=== PATIENT | female | born 1980 | race African-American/Black ===

== ENCOUNTER 2018-05-17 07:05 | Emergency (ER) | payer MEDICARE, MEDICAID ==
[~2018-05-17] VITALS: Ht 160 cm; Wt 65.6 kg
[~2018-05-17 07:05] MED LIST: ACET-2119 PO; HYDR-3965 PO; OMEP-84 PO; RANI300T7 PO; TRAM50TA2 PO
[2018-05-17 07:09] VITALS: BP 144/96
--- NOTE | 2018-05-17 07:22 | NUR ---
called pt. to room. pt. said " you'll have to wait a minute while i get my stuff together" i waited while pt. played with some papers, folding them up, dropping other items on the floor. pt. left in the waiting room so she could organize her belongings.
--- NOTE | 2018-05-17 07:25 | NUR ---
PT. STATES SHE NEEDS A PAIR OF SOCKS.
--- NOTE | 2018-05-17 07:29 | NUR ---
PT. HAS ON A BLACK PAIR OF HIGH TOP SNEEKERS THAT ARE IN GOOD SHAPE TEMP OUT SIDE IS 49 DEGREES. SUN RISE IS NOW AND IT IS TO BE BERYL FOR THE DAY ACORDING TO THE WEATHER CHANNEL
--- NOTE | 2018-05-17 08:12 | NUR ---
PT. LET HERSELF OUT OF TRIAGED 2 BACK INTO THE LOBBY. TRIAGE NURSE TRIED TO GET HER BACK INTO TRIAGE 2 BUT SHE WAS PLAYING WITH HER BELONGINGS. PT WAS GIVEN A BAG TO PLACE HER THINGS INTO....
--- NOTE | 2018-05-17 08:13 | NUR ---
CALLED PT. NOT IN THE LOBBY
--- NOTE | 2018-05-17 08:34 | NUR ---
PT. IS NOW BACK IN T2
--- NOTE | 2018-05-17 09:00 | NUR ---
PT WAS SEEN AND ASSESSED BY SARITA ROBERTSON. PT WAS DC'D BEFORE RN ABLE TO COMPLETE ASSESSMENTS.
== END 2018-05-17 09:02 | disposition home or self-care (01) ==
LOC: ER 07:05
DX: F28 Other psychotic disorder not due to a substance or known physiological condition (principal); M79.661 Pain in right lower leg; K21.9 Gastro-esophageal reflux disease without esophagitis; G89.29 Other chronic pain; F15.90 Other stimulant use, unspecified, uncomplicated; Z79.899 Other long term (current) drug therapy
CPT/HCPCS: 99284

== ENCOUNTER 2019-12-25 04:14 | Emergency (ER) | payer MEDICAID, MEDICARE, OTHER ==
[~2019-12-25] VITALS: Ht 160 cm; Wt 70.9 kg
[2019-12-25 04:23] VITALS: BP 158/12
[2019-12-25] MEDS ORDERED: ketorolac tromethamine 15mg/ml inj. IM ONE (04:40)
[2019-12-25] MEDS ORDERED: IBUP-1984 PO (04:41)
== END 2019-12-25 05:33 | disposition home or self-care (01) ==
LOC: ER 04:14
DX: R07.81 Pleurodynia (principal); M25.531 Pain in right wrist; D57.1 Sickle-cell disease without crisis; G89.29 Other chronic pain; M54.5 Low back pain; F29 Unspecified psychosis not due to a substance or known physiological condition; F41.9 Anxiety disorder, unspecified; K21.9 Gastro-esophageal reflux disease without esophagitis; F15.10 Other stimulant abuse, uncomplicated; Z79.899 Other long term (current) drug therapy; W18.39XA Other fall on same level, initial encounter; Y93.89 Activity, other specified; Y92.89 Other specified places as the place of occurrence of the external cause; Y99.8 Other external cause status
CPT/HCPCS: 29125; 71046; 73110; 73130; 96372; 99284; J1885; 99283

== ENCOUNTER → 2020-09-17 | Emergency (ER) | payer MEDICARE ==
[~2020-09-17] MED LIST changes: +LORazepam 1 MG tablet PO ONE; +acetaminophen 325mg tablet PO ONE
[2020-09-17 16:21] VITALS: BP 157/89
--- NOTE | 2020-09-17 16:25 | NUR ---
Pt was triaged, assessed, treated, and discharged by provider prior to booking manager, assessment, treatment and discharge.
== END ==
LOC: ER 15:32
DX: T67.9XXA Effect of heat and light, unspecified, initial encounter (principal); F15.10 Other stimulant abuse, uncomplicated; I10 Essential (primary) hypertension; K21.9 Gastro-esophageal reflux disease without esophagitis; D57.1 Sickle-cell disease without crisis; G89.29 Other chronic pain; Z72.89 Other problems related to lifestyle; Z79.899 Other long term (current) drug therapy; X58.XXXA Exposure to other specified factors, initial encounter
CPT/HCPCS: 99283

== ENCOUNTER 2020-09-24 05:04 | Emergency (ER) | payer MEDICARE ==
[~2020-09-24] VITALS: Ht 157.5 cm; Wt 69.1 kg
[~2020-09-24 05:04] MED LIST changes: -LORazepam 1 MG tablet PO ONE; -acetaminophen 325mg tablet PO ONE
[2020-09-24 05:12] VITALS: BP 123/91
== END 2020-09-24 06:51 | disposition left against medical advice (07) ==
LOC: ER 05:05
DX: R10.9 Unspecified abdominal pain (principal); Z53.21 Procedure and treatment not carried out due to patient leaving prior to being seen by health care provider

== ENCOUNTER 2020-11-01 23:10 | Emergency (ER) | payer SELFPAY ==
[~2020-11-01] VITALS: Ht 157.5 cm; Wt 64.5 kg
[2020-11-02] MEDS ORDERED: acetaminophen 325mg tablet PO ONE (00:15)
--- NOTE | 2020-11-02 00:30 | NUR ---
PT presents in NAD ambulatory to the room; pt VSS; pt is very figity and wanting something to "let her sleep tonight". Pt states she has chronic leg/back pain. Pt pointed to left leg when asked where the pain was and then corrected to the right leg. States "I'm really not sure where the pain is but it's there". Pt was found 15 min later playing in the toilet of the bathroom and escorted by security back to room. Pt able to perform active ROM with all four extremeties and bend and raise very well without any c/o pain. Pt plan is to f/u with PCP.
[2020-11-02] MEDS ORDERED: ketorolac trometh. 30mg/ml inj. IM ONE (00:35)
[2020-11-02 00:59] VITALS: BP 141/69
== END 2020-11-02 01:00 | disposition home or self-care (01) ==
LOC: ER 23:10
DX: M54.89 Other dorsalgia (principal); G89.29 Other chronic pain; R10.84 Generalized abdominal pain; R11.0 Nausea; K21.9 Gastro-esophageal reflux disease without esophagitis; F15.90 Other stimulant use, unspecified, uncomplicated; Z86.2 Personal history of diseases of the blood and blood-forming organs and certain disorders involving the immune mechanism; Z72.89 Other problems related to lifestyle; Z79.899 Other long term (current) drug therapy
CPT/HCPCS: 96372; 99283; J1885

== ENCOUNTER 2020-11-04 04:42 | Emergency (ER) | payer MEDICARE ==
[~2020-11-04] VITALS: Ht 157.5 cm; Wt 64.5 kg
[2020-11-04 06:53] VITALS: BP 136/70
--- NOTE | 2020-11-04 07:23 | NUR ---
PT TO BR FOR UA, PT STATES UNABLE TO VOID.
[2020-11-04 11:34] LABS: BASOPHILS # (AUTO) 0.1 X10'3 (0-0.2); EOSINOPHILS # (AUTO) 0.1 X10'3 (0-0.9); MONOCYTES # (AUTO) 0.7 X10'3 (0-0.9)
[2020-11-04 11:36] LABS: BASOPHILS % (AUTO) 1.1 % (0-1); EOSINOPHILS % (AUTO) 1.9 % (0-6); HEMATOCRIT 24.3 % (35.0-45.0); LYMPHOCYTES # (AUTO) 2.1 X10'3 (1.1-4.8); LYMPHOCYTES % (AUTO) 30.1 % (21-51); MEAN CORPUSCULAR HEMOGLOBIN 15.3 PG (27.0-31.0); MEAN CORPUSCULAR HGB CONC 27.8 g/dL (33.0-36.5); MEAN CORPUSCULAR VOLUME 54.9 FL (78-98); MEAN PLATELET VOLUME 8.7 FL (7.4-10.4); NEUTROPHILS % (AUTO) 56.9 % (42-75); PLATELET COUNT 149 X10'3 (140-440); RED BLOOD COUNT 4.43 X10'6 (4.20-5.60)
[2020-11-04 11:51] LABS: ALANINE AMINOTRANSFERASE 28 U/L (12-78); ALBUMIN 3.3 G/DL (3.4-5.0); ALBUMIN/GLOBULIN RATIO 0.9 (1.1-1.5); ALKALINE PHOSPHATASE 79 IU/L (46-116); ANION GAP 9 (8-16); ASPARTATE AMINO TRANSFERASE 25 U/L (10-37); BILIRUBIN,DIRECT 0.2 MG/DL (0-0.3); BILIRUBIN,TOTAL 0.5 MG/DL (0.1-1.0); BLOOD UREA NITROGEN 16 MG/DL (7-18); BUN/CREATININE RATIO 21.6 (6.6-38.0); CALCIUM 8.3 MG/DL (8.5-10.1); CHLORIDE 105 MMOL/L (99-107); CREATININE 0.74 MG/DL (0.40-0.90); GLUCOSE 74 MG/DL (70-104); LIPASE 105 U/L (73-393); POTASSIUM 3.9 MMOL/L (3.5-5.1); SODIUM 138 MMOL/L (135-145); TOTAL CARBON DIOXIDE 23.8 MMOL/L (24-32); eGFR > 90 ML/MIN
[2020-11-04 11:55] LABS: URINE HCG NEGATIVE (NEG)
--- NOTE | 2020-11-04 11:55 | NUR ---
IN TO SEE PT AND SHE WAS NOT IN ROOM. INFORMED BY ER REG THAT SECURITY FOUND PT WANDERING AROUND THE HOSPITAL. PT RETURNED TO HER ROOM WITH POPTARTS IN HER HAND, INQUIRED TO WHERE SHE HAD BEEN. SHE STATES SHE WENT ACROSS THE STREET TO THE [employer] TO GET SOME FOOD BECAUSE "I WAS HUNGERY AND YOU GUYS ARE TAKING TO LONG" INSTRUCTED PT WE ARE STILL WAITING FOR HER LABS AND UA TO RESULT. SHE AGREES TO WAIT FOR RESULTS AT THIS TIME
[2020-11-04 12:05] LABS: CLARITY,URINE CLOUDY (Clear); COLOR,URINE AMBER (Yellow); GLUCOSE, URINE NEGATIVE (Neg); NITRITES, URINE NEGATIVE (Neg); OCCULT BLOOD,URINE LARGE (Neg); PH,URINE 6.5 (4.8-8.0); PROTEIN,URINE TRACE mg/dl (Neg); UA COLLECTION TYPE CLN CATCH MIDSTREAM
[2020-11-04 12:06] LABS: LEUKOCYTE ESTERASE ,URINE NEGATIVE (Neg)
[2020-11-04 12:07] LABS: KETONES,URINE 15 mg/dl (Neg)
[2020-11-04 12:13] LABS: BACTERIA,URINE NONE SEEN /HPF (Neg); MUCUS STRANDS NONE SEEN /LPF (Neg); RBC,URINE TNTC /HPF (0-2); SQUAMOUS EPITHELIAL CELL,UR FEW /LPF (FEW); WBC,URINE 0-4 /HPF (0-4)
--- NOTE | 2020-11-04 12:15 | NUR ---
Patient walked out of room, down toward registration. I stopped patient and asked if she was leaving? Patient stated, "Yes, I feel better now. I need to go." I stated to patient that we were just waiting for her test results to come in and shouldn't be much longer. Patient states that she didn't want to wait. I stated that I would love to have the physician come and speak with her and she still refused stating that she wants to go. Dr. Carmen aware.
[2020-11-04 12:17] LABS: HEMOGLOBIN 6.8 g/dl (12.0-16.0)
[2020-11-04 12:18] LABS: ANISOCYTOSIS 3+; HYPOCHROMASIA 2+; LARGE PLATELETS FEW; MICROCYTOSIS 3+; PLATELET ESTIMATE DECREASED; POLYCHROMASIA 1+
[2020-11-04 12:19] LABS: POIKILOCYTOSIS FEW; TARGET CELLS FEW
[2020-11-23] MEDS ORDERED: FERR325T28 PO (20:58)
[2020-11-23] MEDS ORDERED: PANT40SU2 PO (20:58)
[2020-11-23] MEDS ORDERED: RISP3TAB63 PO (20:58)
[2020-11-23] MEDS ORDERED: VITC500T PO (20:58)
== END 2020-11-04 13:09 | disposition left against medical advice (07) ==
LOC: ER 04:43
DX: N92.0 Excessive and frequent menstruation with regular cycle (principal); D64.9 Anemia, unspecified; K21.9 Gastro-esophageal reflux disease without esophagitis; D57.1 Sickle-cell disease without crisis; G89.29 Other chronic pain; F15.90 Other stimulant use, unspecified, uncomplicated; Z72.89 Other problems related to lifestyle; Z79.899 Other long term (current) drug therapy
CPT/HCPCS: 36415; 80048; 80076; 81001; 81025; 83690; 85008; 85025; 99283

== ENCOUNTER → 2020-11-05 | Emergency (ER) | payer MEDICARE ==
[~2020-11-05] MED LIST changes: +NO HOME MEDS
== END | disposition left against medical advice (07) ==
LOC: ER 13:31
DX: Z53.21 Procedure and treatment not carried out due to patient leaving prior to being seen by health care provider (principal)

== ENCOUNTER 2020-11-08 18:45 | Emergency (ER) | payer SELFPAY ==
[~2020-11-08] VITALS: Ht 157.5 cm; Wt 61.4 kg
[~2020-11-08 18:45] MED LIST changes: -NO HOME MEDS
[2020-11-08 19:47] VITALS: BP 164/105
--- NOTE | 2020-11-08 21:23 | NUR ---
PATIENT WAS TREATED, ASSESSED, AND DC PER PROVIDER PRIOR TO AIRCRAFT DISPATCHER. DEPARTED AMBULATORY IN STABLE CONDITION.
== END 2020-11-08 21:23 | disposition home or self-care (01) ==
LOC: ER 18:45
DX: Z02.89 Encounter for other administrative examinations (principal); R10.84 Generalized abdominal pain; D64.9 Anemia, unspecified; K21.9 Gastro-esophageal reflux disease without esophagitis; G89.29 Other chronic pain; F32.9 Major depressive disorder, single episode, unspecified; F15.90 Other stimulant use, unspecified, uncomplicated; Z86.2 Personal history of diseases of the blood and blood-forming organs and certain disorders involving the immune mechanism; Z72.89 Other problems related to lifestyle; Z79.899 Other long term (current) drug therapy
CPT/HCPCS: 99281

== ENCOUNTER 2020-11-13 21:03 | Inpatient (IN) | payer MEDICARE, OTHER ==
[~2020-11-13] VITALS: Ht 157.5 cm; Wt 66.6 kg
[2020-11-13] MEDS ORDERED: LORazepam 1 MG tablet PO ONE (22:05)
[2020-11-13 22:52] LABS: BASOPHILS # (AUTO) 0.1 X10'3 (0-0.2); BASOPHILS % (AUTO) 0.6 % (0-1); EOSINOPHILS # (AUTO) 0.1 X10'3 (0-0.9); EOSINOPHILS % (AUTO) 0.4 % (0-6); HEMOGLOBIN 7.2 g/dl (12.0-16.0); LYMPHOCYTES # (AUTO) 2.1 X10'3 (1.1-4.8); LYMPHOCYTES % (AUTO) 15.5 % (21-51); MEAN CORPUSCULAR HEMOGLOBIN 14.3 PG (27.0-31.0); MEAN CORPUSCULAR HGB CONC 26.6 g/dL (33.0-36.5); MEAN CORPUSCULAR VOLUME 53.7 FL (78-98); MONOCYTES # (AUTO) 0.6 X10'3 (0-0.9); MONOCYTES % (AUTO) 4.2 % (2-12); NEUTROPHILS # (AUTO) 10.7 X10'3 (1.8-7.7); NEUTROPHILS % (AUTO) 79.3 % (42-75); PLATELET COUNT 537 X10'3 (140-440); RED BLOOD COUNT 5.03 X10'6 (4.20-5.60); RED CELL DISTRIBUTION WIDTH 24.1 % (11.5-14.5); WHITE BLOOD COUNT 13.4 X10'3 (4.5-11.0)
[2020-11-13 23:23] LABS: ALANINE AMINOTRANSFERASE 47 U/L (12-78); ALBUMIN 4.3 G/DL (3.4-5.0); ALBUMIN/GLOBULIN RATIO 0.9 (1.1-1.5); ALKALINE PHOSPHATASE 96 IU/L (46-116); ANION GAP 11 (8-16); ASPARTATE AMINO TRANSFERASE 59 U/L (10-37); BILIRUBIN,TOTAL 0.4 MG/DL (0.1-1.0); BLOOD UREA NITROGEN 12 MG/DL (7-18); BUN/CREATININE RATIO 12.5 (6.6-38.0); CALCIUM 9.5 MG/DL (8.5-10.1); CHLORIDE 103 MMOL/L (99-107); CREATININE 0.96 MG/DL (0.40-0.90); GLUCOSE 100 MG/DL (70-104); POTASSIUM 4.2 MMOL/L (3.5-5.1); SODIUM 136 MMOL/L (135-145); TOTAL CARBON DIOXIDE 21.9 MMOL/L (24-32); eGFR 77 ML/MIN
[2020-11-13 23:24] LABS: URINE HCG NEGATIVE (NEG)
[2020-11-13 23:32] LABS: ETHANOL < 0.010 GM/DL (0.0-0.010)
[2020-11-13 23:39] LABS: URINE AMPHETAMINE SCREEN POSITIVE (Neg); URINE BARBITUATE SCREEN NEGATIVE (Neg); URINE BENZODIAZEPINES SCREEN NEGATIVE (Neg); URINE CANNABINOID SCREEN NEGATIVE (Neg); URINE COCAINE SCREEN NEGATIVE (Neg); URINE METHADONE SCREEN NEGATIVE (Neg); URINE OPIATE SCREEN NEGATIVE (Neg); URINE PHENCYCLIDINE SCREEN NEGATIVE (Neg)
[2020-11-13 23:48] LABS: CLARITY,URINE CLEAR (Clear); COLOR,URINE Yellow (Yellow); GLUCOSE, URINE Negative (Neg); KETONES,URINE TRACE mg/dl (Neg); OCCULT BLOOD,URINE NEGATIVE (Neg); PROTEIN,URINE Negative (Neg); UA COLLECTION TYPE CLN CATCH MIDSTREAM
[2020-11-13 23:49] LABS: LEUKOCYTE ESTERASE ,URINE NEGATIVE (Neg); NITRITES, URINE NEGATIVE (Neg); UROBILINOGEN,URINE 0.2 E.U/dL (0.2-1.0)
[2020-11-14 01:13] LABS: LARGE PLATELETS FEW; PLATELET ESTIMATE INCREASED
[2020-11-14 01:15] LABS: ANISOCYTOSIS 3+; HYPOCHROMASIA 2+; MICROCYTOSIS 3+
[2020-11-14 01:16] LABS: POLYCHROMASIA 2+
[2020-11-14 01:17] LABS: POIKILOCYTOSIS 2+
[2020-11-14 01:18] LABS: TARGET CELLS FEW
[2020-11-14 01:19] LABS: TEAR DROP CELLS 1+
[2020-11-14] MEDS ORDERED: ibuprofen tablet 400 MG TABLET PO ONE (05:05)
--- NOTE | 2020-11-14 05:55 | NUR ---
FAXED CHART TO [facility]
[2020-11-14] MEDS ORDERED: NO HOME MEDS (06:09)
--- NOTE | 2020-11-14 06:52 | NUR ---
PT APPEARS TO BE SLEEPING. NO S/S ACUTE DISTRESS AT THIS TIME. RESPIRATIONS EQUAL AND UNLABORED
[2020-11-14] MEDS ORDERED: acetaminophen 325mg tablet PO ONE (08:25)
--- NOTE | 2020-11-14 08:27 | NUR ---
pt awake and requesting vicodin for her back pain. christiano white made aware of pt request. pt seen coloring on the floor. given paper to color on
--- NOTE | 2020-11-14 09:10 | NUR ---
meal tray given
--- NOTE | 2020-11-14 17:50 | NUR ---
RN received pt. to ER overflow. Pt. is stable. Belongings placed in locker and pt. given extra blanket and water.
--- NOTE | 2020-11-14 18:27 | NUR ---
Received report and assumed care of patient that is eating dinner.
--- NOTE | 2020-11-14 19:52 | NUR ---
Patient has finished dinner, and fallen asleep on her left side. Resp. equal and unlabored. No s/s of distress.
--- NOTE | 2020-11-14 21:51 | NUR ---
Patient appears to be sleeping. She is in supine position and her breathing is equal and unlabored.
--- NOTE | 2020-11-14 23:40 | NUR ---
Patient awake and has requested a snack, which was provided. She is resting comfortably.
--- NOTE | 2020-11-15 00:10 | NUR ---
Patient lying in bed awake, having a conversation with herself. No agitation.
--- NOTE | 2020-11-15 01:18 | NUR ---
PT AWAKE, AMBULATORY TO THE BATHROOM WITH STEADY GAIT, RETURNS TO HER BEDSIDE TABLE TALKING TO HERSELF BEFORE RETURNING TO THE BATHROOM. PT APPEARS TO BE IN NO DISTRESS.
--- NOTE | 2020-11-15 01:21 | NUR ---
PT BACK TO BED AFTER MULTIPLE RETURNS AND CHECKS OF THE DOOR HANDLE, REQUESTING JUICE AND CRACKERS. APPEARS COMFORTABLE.
--- NOTE | 2020-11-15 02:58 | NUR ---
Patient appears to be asleep in supine position. She occasionally mumbles something, but appears to be in no distress.
--- NOTE | 2020-11-15 05:38 | NUR ---
Patient asleep on her left side. RR equal and unlabored.
--- NOTE | 2020-11-15 06:32 | NUR ---
Received patient resting comfortably in low denis's position. Respirations unlabored.
--- NOTE | 2020-11-15 09:03 | NUR ---
Pt presnets as fatigued, occassionally wakes up wanting something to eat. Pt ate 100% of her breakfast. Pt had a difficult time staying awake during one on one assessment. Pt states she came to ER because "I didn't feel good." When asked about suicidal thoughts pt mumbled something then fell back to sleep. Pt denies being homeless states "I can live with my mom."
--- NOTE | 2020-11-15 11:04 | NUR ---
Pt resting comfortably on right side, respirations even and unlabored.
--- NOTE | 2020-11-15 13:07 | NUR ---
Pt sitting up eating her lunch. Pt remains calm, focused on getting needs met.
--- NOTE | 2020-11-15 14:55 | NUR ---
Pt appears to be sleeping comfortably, no apparent distress.
--- NOTE | 2020-11-15 17:42 | NUR ---
Pt continues to rest comfortably, self-positions. No apparent distress noted.
--- NOTE | 2020-11-15 19:12 | NUR ---
One to one with the patient. She was sitting up calmly eating her dinner. She denied thoughts of wanting to harm herself or others. She denies psychotic symptoms. When asked why she was here she stated, "I needed some time to myself. I wasn't feeling good" She stated that she has been living with her mother. Kobi stated that she is aware that she is on a 5150 hold. Anxiety or depression were not endorsed.
--- NOTE | 2020-11-15 21:30 | NUR ---
The patient ambulated to the bathroom with no pants on and seemed oblivious to this fact. She is not agitated. She is cooperative.
--- NOTE | 2020-11-16 00:05 | NUR ---
The patient appears to be sleeping
--- NOTE | 2020-11-16 01:04 | NUR ---
The patient appears to be sleeping
[2020-11-16] MEDS ORDERED: acetaminophen 325mg tablet PO ONE (02:20)
--- NOTE | 2020-11-16 02:25 | NUR ---
The patient is awake and asked for pain med. MD made aware and order received.
--- NOTE | 2020-11-16 03:25 | NUR ---
The patient appears to be sleeping
--- NOTE | 2020-11-16 05:00 | NUR ---
The patient appears to be sleeping
--- NOTE | 2020-11-16 06:52 | NUR ---
Patient sleeping on left side. No distress observed. Continue to monitor.
--- NOTE | 2020-11-16 08:15 | NUR ---
Patient eating breakfast. No distress observed. Continue to monitor.
--- NOTE | 2020-11-16 09:49 | NUR ---
Patient sleeping on left side. No distress observed. Continue to monitor.
--- NOTE | 2020-11-16 11:23 | NUR ---
Patient continues to sleep. No distress observed. Continue to monitor.
--- NOTE | 2020-11-16 13:15 | NUR ---
Patient is up and eating lunch. No distress observed. Continue to monitor.
[2020-11-16] MEDS ORDERED: magnesium hydroxide 30ml (MOM) UD suspension PO PRN (15:35)
[2020-11-16] MEDS ORDERED: loperamide 2mg capsule PO PRN (15:35)
[2020-11-16] MEDS ORDERED: acetaminophen 325mg tablet PO PRN ×2 (15:35)
[2020-11-16] MEDS ORDERED: mag hydrox/Alum hydrox/simeth 30ml oral suspension PO PRN (15:35)
--- NOTE | 2020-11-16 16:00 | NUR ---
Admission note: Pt admitted today at 1515 to [facility] on a 5150 for DTS/GD from our ER. PT believes people are out to kill her and her family, unable to develop viable safety plan, reports suicidal thoughts, presents confused disorganized. Pt has a history of multiple psychotic placements, most recent at [place] 08/30/20. Pt has a history of schizophrenia, Sickle cell anemia, back pain. Tox screen positive for amphetamines. Pt cooperative with admissnion process.
[2020-11-16 16:07] VITALS: BP 132/88
[2020-11-16 16:09] VITALS: BP 132/88
[2020-11-16 16:58] VITALS: BP 132/88
[2020-11-16 19:00] VITALS: BP 136/90
--- NOTE | 2020-11-17 00:33 | NUR ---
Nursing Progress Note: Legal hold: 5150 Client on involuntary status for GD/DTS. Report received from KEMI Garcia with use of SBAR Why are they here: Pt admitted today at 1515 to [place] for [facility] health on a 5150 for DTS/GD from our ER. PT believes people are out to kill her and her family, unable to develop viable safety plan, reports suicidal thoughts, presents confused disorganized. Pt has a history of multiple psychotic placements, most recent at [place] 08/30/20. Pt has a history of schizophrenia, Sickle cell anemia, back pain. Tox screen positive for amphetamines. Pt cooperative with admission process. Assessment What has happened this shift: Patient laying in bed awake at the beginning of shift. Pleasant and cooperative with care; PRN Ativan and Trazodone provided this shift. Patient denies SI, HI, A/VH but observed responding to IS. Patient is minimal with responses. Patient reported that she is looking forward to the doctor tomorrow. She participated in HS snack and quickly returned to her bed. Patient presents restless; post Ativan and Trazodone patient appears to be sleeping without difficulty. S/I, H/I: Denies A/VH: Responding to IS Sleep: Refer to sleep assessment ADL's: Needs encouragement Group attendance: NA Were meds taken: No scheduled meds; compliant with PRNs Any med S/E: None observed or reported Mental Status Exam Appearance: Disheveled; wearing green unit attire Eye contact: Good Behavior: Pleasant and cooperative; isolative Speech: Clear, audible, minimal Mood: Anxious Affect: Congruent to mood Thought process: Poverty of thought; possible thought blocking Thought Content: Meeting needs and getting to meet the doctor Cognition: Intact Insight: Poor Judgment: Poor Interventions PRN's used: Ativan and Trazodone Therapeutic interventions: Maintained a safe and supportive environment, ensured contract for safety, provided clear and simple instructions, provided active listening and positive encouragement, encouraged independent performance of ADLs and provided assistance as needed, encouraged participation on the unit, monitored BP and encouraged fluids, and maintained Q 15 min safety checks. Restraints/seclusion/emergency medication: NA Justification of Continued Inpatient Treatment: Patient requires a safe and therapeutic environment to interrupt current crisis.
[2020-11-17 08:00] VITALS: BP 117/76
[2020-11-17 14:11] LABS: CHOL/HDL RATIO 2.9 (0.00-4.99); CHOLESTEROL 93 MG/DL (0-200); HDL CHOLESTEROL 32 MG/DL (35-60); LDL CHOLESTEROL 51 MG/DL (50-100); TRIGLYCERIDES 52 MG/DL (20-135)
[2020-11-17 14:18] LABS: HEMOGLOBIN A1C 5.1 % (4.5-6.2)
--- NOTE | 2020-11-17 15:30 | NUR ---
Nursing Progress Note: Legal hold: 5150 Client on involuntary status for GD/DTS. Report received from KEMI Garcia with use of SBAR Why are they here: Pt admitted today at 1515 to [place] for [facility] health on a 5150 for DTS/GD from our ER. PT believes people are out to kill her and her family, unable to develop viable safety plan, reports suicidal thoughts, presents confused disorganized. Pt has a history of multiple psychotic placements, most recent at [place] 08/30/20. Pt has a history of schizophrenia, Sickle cell anemia, back pain. Tox screen positive for amphetamines. Pt cooperative with admission process. Assessment What has happened this shift: Patient was asleep at change of shift and up for meals. Patient isolates. RN did a 1:1 in patient's room. Patient states she is still feeling a "little" suicidal without a plan. Patient states she has a lot to deal with and felt overwhelmed but did not give details. Patient states she lives with her mom. Patient denies audio/visual hallucinations and states she never has heard voices. S/I, H/I: Yes to SI, No to HI A/VH: denies Sleep: Slept or in bed most of the day ADL's: Needs encouragement Group attendance: No Were meds taken: No scheduled medications Any med S/E: None observed or reported Mental Status Exam Appearance: Disheveled; wearing green unit attire Eye contact: Fair Behavior: Cooperative and Isolates in bed Speech: Normal Mood: Depressed Affect: Depressed Thought process: Linear Thought Content: Getting her needs met, food and sleep Cognition: OX4 Insight: Poor Judgment: Poor Interventions PRN's used: None Therapeutic interventions: Maintained a safe and supportive environment, ensured contract for safety, provided clear and simple instructions, provided active listening and positive encouragement, encouraged independent performance of ADLs and provided assistance as needed, encouraged participation on the unit, monitored BP and encouraged fluids, and maintained Q 15 min safety checks. Restraints/seclusion/emergency medication: NA Justification of Continued Inpatient Treatment: Patient requires a safe and therapeutic environment to interrupt current crisis.
[2020-11-17] MEDS ORDERED: benztropine 1mg tablet PO PRN (17:55)
[2020-11-17 19:00] VITALS: BP 115/72
[2020-11-17] MEDS: risperiDONE 0.5mg tablet PO SCH (20:50)
[2020-11-17] MEDS: LORazepam 1 MG tablet PO PRN (20:50)
[2020-11-17] MEDS: traZODone 50mg tablet PO PRN (20:50)
--- NOTE | 2020-11-18 02:06 | NUR ---
Nursing Progress Note: Legal hold: 5150 Client on involuntary status for GD/DTS. Report received from KEMI Salinas with use of SBAR Why are they here: Pt admitted today at 1515 to [place] for [facility] health on a 5150 for DTS/GD from our ER. PT believes people are out to kill her and her family, unable to develop viable safety plan, reports suicidal thoughts, presents confused disorganized. Pt has a history of multiple psychotic placements, most recent at [place] 08/30/20. Pt has a history of schizophrenia, Sickle cell anemia, back pain. Tox screen positive for amphetamines. Pt cooperative with admission process. Assessment What has happened this shift: Patient in the community room at the beginning of shift. Pleasant and cooperative with care; compliant with medication. PRN Ativan and Trazodone provided with positive effect. Patient denies SI, HI, VH; observed responding to IS. Patient presents impatient behaviors when she feels her needs are not being met quick enough. Patient participated in HS snack prior to bed; observed sleeping and does not appear to be having difficulty. S/I, H/I: Denies A/VH: Responding to IS Sleep: Refer to sleep assessment ADL's: Needs encouragement Group attendance: NA Were meds taken: Yes Any med S/E: None observed or reported Mental Status Exam Appearance: Disheveled; wearing green unit attire Eye contact: Good Behavior: Pleasant and cooperative, isolative, impatient Speech: Clear, audible, minimal Mood: Anxious Affect: Congruent to mood Thought process: Poverty of thought; possible thought blocking Thought Content: Meeting needs Cognition: Intact Insight: Poor Judgment: Poor Interventions PRN's used: Ativan and Trazodone Therapeutic interventions: Maintained a safe and supportive environment, ensured contract for safety, provided clear and simple instructions, provided active listening and positive encouragement, encouraged independent performance of ADLs and provided assistance as needed, encouraged participation on the unit, monitored BP and encouraged fluids, and maintained Q 15 min safety checks. Restraints/seclusion/emergency medication: NA Justification of Continued Inpatient Treatment: Patient requires a safe and therapeutic environment to interrupt current crisis.
[2020-11-18 08:00] VITALS: BP 115/70
[2020-11-18] MEDS: ascorbic acid 500mg tablet PO SCH ×2 (08:09→17:36)
[2020-11-18] MEDS: pantoprazole 40mg Tablet.DR PO SCH (08:09)
[2020-11-18] MEDS: risperiDONE 0.5mg tablet PO SCH ×2 (08:10→20:16)
[2020-11-18] MEDS: ferrous sulfate 325mg tablet PO SCH ×3 (09:19→17:36)
[2020-11-18 12:31] LABS: BASOPHILS % (AUTO) 0.2 % (0-1); EOSINOPHILS # (AUTO) 0.2 X10'3 (0-0.9); EOSINOPHILS % (AUTO) 1.5 % (0-6); HEMATOCRIT 24.4 % (35.0-45.0); LYMPHOCYTES # (AUTO) 1.9 X10'3 (1.1-4.8); MEAN CORPUSCULAR HEMOGLOBIN 13.8 PG (27.0-31.0); MEAN CORPUSCULAR HGB CONC 26.3 g/dL (33.0-36.5); MEAN CORPUSCULAR VOLUME 52.4 FL (78-98); MONOCYTES # (AUTO) 0.7 X10'3 (0-0.9); MONOCYTES % (AUTO) 5.9 % (2-12); NEUTROPHILS # (AUTO) 9.2 X10'3 (1.8-7.7); NEUTROPHILS % (AUTO) 76.4 % (42-75); PLATELET COUNT 514 X10'3 (140-440); RED BLOOD COUNT 4.66 X10'6 (4.20-5.60); RED CELL DISTRIBUTION WIDTH 23.4 % (11.5-14.5)
[2020-11-18 12:34] LABS: HEMOGLOBIN 6.4 g/dl (12.0-16.0)
[2020-11-18 12:58] LABS: % IRON SATURATION 98 % (11-46); IRON 323 UG/DL (49-151); TOTAL IRON BINDING CAPACITY 328 UG/DL (259-388)
--- NOTE | 2020-11-18 13:00 | NUR ---
Hgb: 6.4 Hct: 24.4 BP 115/70 HR 88 asymptomatic SARITA notified, notified. Dr. Dailey ordered stat stool occult blood. Hat placed in toilet and pt educated to use bathroom CATE and notify staff.
[2020-11-18 13:07] LABS: ALANINE AMINOTRANSFERASE 21 U/L (12-78); ALBUMIN 2.8 G/DL (3.4-5.0); ALBUMIN/GLOBULIN RATIO 0.7 (1.1-1.5); ALKALINE PHOSPHATASE 63 IU/L (46-116); ANION GAP 10 (8-16); ASPARTATE AMINO TRANSFERASE 15 U/L (10-37); BILIRUBIN,TOTAL 0.2 MG/DL (0.1-1.0); BLOOD UREA NITROGEN 14 MG/DL (7-18); BUN/CREATININE RATIO 17.5 (6.6-38.0); CALCIUM 8.4 MG/DL (8.5-10.1); CHLORIDE 104 MMOL/L (99-107); FERRITIN 1 NG/ML (8-252); GLUCOSE 104 MG/DL (70-104); POTASSIUM 4.7 MMOL/L (3.5-5.1); SODIUM 139 MMOL/L (135-145); TOTAL PROTEIN 6.6 G/DL (6.4-8.2); eGFR > 90 ML/MIN
[2020-11-18 13:32] LABS: PLATELET ESTIMATE INCREASED
[2020-11-18 13:33] LABS: ANISOCYTOSIS 3+; HYPOCHROMASIA 3+; MICROCYTOSIS 3+; POLYCHROMASIA 2+; TEAR DROP CELLS 1+
[2020-11-18 13:34] LABS: SCHISTOCYTES 1+; STOMATOCYTES 1+
[2020-11-18 16:57] LABS: OCCULT BLOOD STOOL NEGATIVE (Neg)
--- NOTE | 2020-11-18 17:54 | NUR ---
Nursing Progress Note: Legal hold: 5150 Client on involuntary status for GD/DTS. Report received from RN with use of SBAR Why are they here: Pt admitted today at 1515 to [facility] on a 5150 for DTS/GD from our ER. PT believes people are out to kill her and her family, unable to develop viable safety plan, reports suicidal thoughts, presents confused disorganized. Pt has a history of multiple psychotic placements, most recent at [place] 08/30/20. Pt has a history of schizophrenia, Sickle cell anemia, back pain. Tox screen positive for amphetamines. Pt cooperative with admission process. Assessment What has happened this shift: Received Pt in bed sleeping at the beginning of the shift. Pt woke and was cooperative with vitals and AM medications. Pt ate breakfast and lunch in community room with others. Pt guarded in AM and isolated to room and slept on/off. Pt had abnormal labs; Hgb-6.4, Hct-24.4. MD notified and stool occult blood ordered and obtained and sent to lab. Pt denies being on period/menses or seeing blood in her stool. Pt is asymptomatic and MD recommends no further action at this time. Pt approached this RN in afternoon stating I can hear them dropping bombs, coming and taking stuff. They need to leave me alone. Pt spoke in disorganized manner and persistently spoke of delusions related to them, but could not provide this RN with coherent explanations of what she reports hearing or seeing. Pt remains calm and cooperative at this time. Pt denies that these things are not real. S/I, H/I: Denies HI; endorses SI A/VH: Denies Sleep: Slept or in bed most of the day ADL's: Needs encouragement Group attendance: No Were meds taken: Yes Any med S/E: None observed or reported Mental Status Exam Appearance: Disheveled; wearing green scrubs Eye contact: Fair Behavior: Cooperative and Isolates in bed Speech: Disorganized, delusional Mood: Depressed Affect: Anxious Thought process: Disorganized Thought Content: Getting her needs met, food and sleep Cognition: A/OX3 Insight: Poor Judgment: Poor Interventions PRN's used: None Therapeutic interventions: Maintained a safe and supportive environment, ensured contract for safety, provided clear and simple instructions, provided active listening and positive encouragement, encouraged independent performance of ADLs and provided assistance as needed, encouraged participation on the unit, monitored BP and encouraged fluids, and maintained Q 15 min safety checks. Restraints/seclusion/emergency medication: NA Justification of Continued Inpatient Treatment: Patient requires a safe and therapeutic environment to interrupt current crisis.
[2020-11-18 19:00] VITALS: BP 124/66
[2020-11-18] MEDS: traZODone 50mg tablet PO PRN (20:16)
[2020-11-18] MEDS: LORazepam 1 MG tablet PO PRN (20:17)
--- NOTE | 2020-11-18 23:09 | NUR ---
Nursing Progress Note: Legal hold: 5150 Client on involuntary status for GD/DTS. Report received from KEMI Harris with use of SBAR Why are they here: Pt admitted today at 1515 to [place] for [facility] health on a 5150 for DTS/GD from our ER. PT believes people are out to kill her and her family, unable to develop viable safety plan, reports suicidal thoughts, presents confused disorganized. Pt has a history of multiple psychotic placements, most recent at [place] 08/30/20. Pt has a history of schizophrenia, Sickle cell anemia, back pain. Tox screen positive for amphetamines. Pt cooperative with admission process. Assessment What has happened this shift: Patient observed on the unit at the beginning of shift. Pleasant and cooperative with care; compliant with medication. PRN Ativan and Trazodone provided with positive effect. Patient denies SI, HI, A/VH; does not appear to be responding to IS this shift and no delusional thought content expressed. Patient is minimal with responses; tolerates her roommates outbursts well. She participated in HS snack and promptly retired to bed; observed sleeping and does not appear to be having difficulty. S/I, H/I: Denies A/VH: Denies Sleep: Refer to sleep assessment ADL's: Needs encouragement Group attendance: NA Were meds taken: Yes Any med S/E: None observed or reported Mental Status Exam Appearance: Disheveled; wearing green unit attire Eye contact: Good Behavior: Pleasant and cooperative, isolative Speech: Clear, audible, minimal Mood: Anxious, restless Affect: Congruent to mood Thought process: Poverty of thought; possible thought blocking Thought Content: Meeting needs Cognition: Intact Insight: Poor Judgment: Poor Interventions PRN's used: Ativan and Trazodone Therapeutic interventions: Maintained a safe and supportive environment, ensured contract for safety, provided clear and simple instructions, provided active listening and positive encouragement, encouraged independent performance of ADLs and provided assistance as needed, encouraged participation on the unit, monitored BP and encouraged fluids, and maintained Q 15 min safety checks. Restraints/seclusion/emergency medication: NA Justification of Continued Inpatient Treatment: Patient requires a safe and therapeutic environment to interrupt current crisis.
[2020-11-19] MEDS: risperiDONE 0.5mg tablet PO SCH (07:19)
[2020-11-19] MEDS: pantoprazole 40mg Tablet.DR PO SCH (07:19)
[2020-11-19 08:00] VITALS: BP 103/60
[2020-11-19] MEDS: ascorbic acid 500mg tablet PO SCH ×2 (10:28→17:20)
[2020-11-19] MEDS: ferrous sulfate 325mg tablet PO SCH ×3 (10:28→17:20)
--- NOTE | 2020-11-19 11:33 | NUR ---
Patient in room sleeping and then awaken for snack and back to bed.
--- NOTE | 2020-11-19 11:39 | NUR ---
Patient wanting to see the Dr. and wanting to go home. Patient asking for time.She is wanting to see the dr so that she can go home. Patient states that there are things she "needs to take care of." States that she lives at home with her mother who can help but that she is capable of "taking care of it myself I need to check the bombs." Patient states "it feels like a man is throwing bombs at me." Let patient know that the Dr. would be in to see her today but do not know at what time. Patient asked about time and went back to bed.
--- NOTE | 2020-11-19 13:47 | NUR ---
Patient has been up and ambulating asking for snacks and time. She consumed breakfast and lunch in dinning room. Patient back in bed and appears to be resting comfortably.
--- NOTE | 2020-11-19 13:48 | NUR ---
Nursing Progress Note: Legal hold: 5150 Client on involuntary status for GD/DTS. Report received from Cally Meeks RN with use of SBAR Why are they here: Pt admitted today at 1515 to [place] for [facility] health on a 5150 for DTS/GD from our ER. PT believes people are out to kill her and her family, unable to develop viable safety plan, reports suicidal thoughts, presents confused disorganized. Pt has a history of multiple psychotic placements, most recent at [place] 08/30/20. Pt has a history of schizophrenia, Sickle cell anemia, back pain. Tox screen positive for amphetamines. Pt cooperative with admission process. Assessment What has happened this shift: Assumed patient when patient in bed resting comfortably. Patient pleasant and cooperative in taking meds. Patient denies any SI/HI/AH/VH however patient stated that she felt that "a man was throwing bombs at me." She also has been stating she needed to see the Dr due to need to go home and take care of some things and asking for the time of day. She was easily redirected. She has been hungry and asking for snacks. Patient participated in snack times as well as asking for extra snacks. She has been consuming meals in dining room with other patients with no issues. Patient up and ambulating independently. Lies in bed to nap intermittently. S/I, H/I: Denies A/VH: Denies Sleep: napping intermittently ADL's: Needs encouragement Group attendance: NA Were meds taken: Yes Any med S/E: None observed or reported Mental Status Exam Appearance: Disheveled; wearing green unit attire Eye contact: Good Behavior: Pleasant and cooperative, isolative. Speech: Clear, audible, minimal Mood: Anxious, restless Affect: Congruent to mood Thought process: Poverty of thought; possible thought blocking Thought Content: Meeting needs Cognition: Intact Insight: Poor Judgment: Poor Interventions PRN's used: None Therapeutic interventions: Maintained a safe and supportive environment, ensured contract for safety, provided clear and simple instructions, provided active listening and positive encouragement, encouraged independent performance of ADLs and provided assistance as needed, encouraged participation on the unit, monitored BP and encouraged fluids, and maintained Q 15 min safety checks. Restraints/seclusion/emergency medication: NA Justification of Continued Inpatient Treatment: Patient requires a safe and therapeutic environment to interrupt current crisis.
[2020-11-19 20:15] VITALS: BP 103/63
[2020-11-19] MEDS: traZODone 50mg tablet PO PRN (20:58)
[2020-11-19] MEDS: LORazepam 1 MG tablet PO PRN (20:58)
[2020-11-19] MEDS ORDERED: risperiDONE 2mg tablet PO SCH (21:00)
--- NOTE | 2020-11-20 03:25 | NUR ---
Nursing Progress Note: Legal hold: 5250 Client on involuntary status for GD/DTS. Report received from KEMI Salinas with use of SBAR Why are they here: Pt admitted today at 1515 to [place] for [facility] health on a 5150 for DTS/GD from our ER. PT believes people are out to kill her and her family, unable to develop viable safety plan, reports suicidal thoughts, presents confused disorganized. Pt has a history of multiple psychotic placements, most recent at [facility] 08/30/20. Pt has a history of schizophrenia, Sickle cell anemia, back pain. Tox screen positive for amphetamines. Pt cooperative with admission process. Assessment What has happened this shift: Patient sitting on her bed awake at the beginning of shift. Pleasant and cooperative with care; compliant with care; compliant with medication. Patient denies SI, HI, A/VH; does not appear to be responding to IS this shift and no delusional thought content expressed. Patient remains to herself throughout the shift; observed participating in HS snack prior to bed; observed sleeping and does not appear to be having difficulty. S/I, H/I: Denies A/VH: Denies Sleep: Refer to sleep assessment ADL's: Needs encouragement Group attendance: NA Were meds taken: Yes Any med S/E: None observed or reported Mental Status Exam Appearance: Disheveled; wearing green unit attire Eye contact: Good Behavior: Pleasant and cooperative, isolative Speech: Clear, audible, minimal Mood: Anxious Affect: Congruent to mood Thought process: Poverty of thought; possible thought blocking Thought Content: Meeting needs Cognition: Intact Insight: Poor Judgment: Poor Interventions PRN's used: Ativan and Trazodone Therapeutic interventions: Maintained a safe and supportive environment, ensured contract for safety, provided clear and simple instructions, provided active listening and positive encouragement, encouraged independent performance of ADLs and provided assistance as needed, encouraged participation on the unit, monitored BP and encouraged fluids, and maintained Q 15 min safety checks. Restraints/seclusion/emergency medication: NA Justification of Continued Inpatient Treatment: Patient requires a safe and therapeutic environment to interrupt current crisis.
[2020-11-20] MEDS ORDERED: risperiDONE 0.5mg tablet PO SCH (08:00)
[2020-11-20 08:03] VITALS: BP 119/71
[2020-11-20] MEDS: pantoprazole 40mg Tablet.DR PO SCH (08:15)
[2020-11-20] MEDS: ferrous sulfate 325mg tablet PO SCH ×2 (08:15→12:58)
[2020-11-20] MEDS: ascorbic acid 500mg tablet PO SCH (08:15)
[2020-11-20 10:34] LABS: BASOPHILS # (AUTO) 0.1 X10'3 (0-0.2); BASOPHILS % (AUTO) 0.6 % (0-1); EOSINOPHILS # (AUTO) 0.2 X10'3 (0-0.9); HEMATOCRIT 23.6 % (35.0-45.0); LYMPHOCYTES # (AUTO) 2.4 X10'3 (1.1-4.8); LYMPHOCYTES % (AUTO) 20.9 % (21-51); MEAN CORPUSCULAR HGB CONC 25.3 g/dL (33.0-36.5); MEAN CORPUSCULAR VOLUME 55.4 FL (78-98); MEAN PLATELET VOLUME 8.6 FL (7.4-10.4); MONOCYTES # (AUTO) 0.8 X10'3 (0-0.9); MONOCYTES % (AUTO) 7.3 % (2-12); NEUTROPHILS # (AUTO) 7.9 X10'3 (1.8-7.7); NEUTROPHILS % (AUTO) 69.2 % (42-75); PLATELET COUNT 343 X10'3 (140-440); RED BLOOD COUNT 4.25 X10'6 (4.20-5.60); WHITE BLOOD COUNT 11.5 X10'3 (4.5-11.0)
[2020-11-20 10:48] LABS: ALANINE AMINOTRANSFERASE 24 U/L (12-78); ALBUMIN 2.9 G/DL (3.4-5.0); ALBUMIN/GLOBULIN RATIO 0.8 (1.1-1.5); ALKALINE PHOSPHATASE 64 IU/L (46-116); ANION GAP 9 (8-16); ASPARTATE AMINO TRANSFERASE 25 U/L (10-37); BILIRUBIN,TOTAL 0.2 MG/DL (0.1-1.0); BLOOD UREA NITROGEN 11 MG/DL (7-18); BUN/CREATININE RATIO 14.3 (6.6-38.0); CALCIUM 8.2 MG/DL (8.5-10.1); CHLORIDE 105 MMOL/L (99-107); CREATININE 0.77 MG/DL (0.40-0.90); GLUCOSE 109 MG/DL (70-104); POTASSIUM 4.8 MMOL/L (3.5-5.1); SODIUM 138 MMOL/L (135-145); TOTAL CARBON DIOXIDE 24.1 MMOL/L (24-32); TOTAL PROTEIN 6.7 G/DL (6.4-8.2); eGFR > 90 ML/MIN
[2020-11-20 11:20] LABS: ANISOCYTOSIS 3+; HYPOCHROMASIA 3+; LARGE PLATELETS FEW; MICROCYTOSIS 3+; NUCLEATED RED BLOOD CELLS 3 /100WBC (0-0); PLATELET ESTIMATE NORMAL; POLYCHROMASIA 2+; SCHISTOCYTES 1+; TOTAL CELLS COUNTED 100
[2020-11-20 11:22] LABS: TEAR DROP CELLS 1+
[2020-11-20 11:23] LABS: STOMATOCYTES 1+
--- NOTE | 2020-11-20 11:33 | NUR ---
Critical lab: Paged and spoke with Dr Hewitt about pts low HGB 6.0. She states pt has Sickle cell anemia and this drop is not significant. Will recheck labs on Friday.
--- NOTE | 2020-11-20 13:10 | NUR ---
PROBABLE CAUSE HEARING Patients Name: Darling Barclay Admission Date: 11/16/2020 Date of 5150: 11/14/2020 Written by: [facility] Criteria: DTS, GD Summary of Facts: Jeanne believes that people are out to kill her and her family, unable to develop viable safety plan, reports suicidal thoughts, presents as confused, disorganized Last inpatient was August 2020 Date of 5250: 11/19/2020 Written by: Rolanda Criteria: GD Summary of Facts: Disorganized, tangential, and confused thought process. Paranoid delusions, states looks like the room was shaking, I thought that people were throwing bombs at me, I didnt know. She lacks insight into her mental illness and appears to be a poor historian. Diagnosis: Schizophrenia Behavior during past 48 HRS: Has shown a lot of improvement but still has some residual symptoms. Denies SI, HI, AVH but did say she felt like a man was throwing bombs at her yesterday FOOD: 100% SLEEPIN.25 ADLS: Ind LONG-TERM: Homeless/with mother MEDICATION DOSAGE FREQUENCY DURATION Risperdal 1 mg q am and 2 mg po q hs Ativan 1 mg q 6 hr prn last took last night Trazodone 50 mg q hs prn last took last night
--- NOTE | 2020-11-20 14:34 | NUR ---
DCP Presenting Issues: Pt is expected to prevail @ her 5250 Hearing, attending physician requesting clinician's support with dcp activities. Interventions: Clinician met with pt and engaged her in dcp activities. Per session, clt was able to formulate a dcp that addresses halfway, access to food/meals, and healthcare services (plans to go to her mother's and believes that mother will support). Pt plans to return to her mother's home and [place] [place] [facility]. While pt was able to stitch together a general dcp, she was unable to discuss the fine details- (i.e how she would get to her f/u, what to do about meds)- pt would need support to prevent re-hospitalization. Clinician had t/c w/pt's mother, per t/c, pt is not welcome there and mother will not provide third constitution party assistance. Clinician met w/pt again to finalize dcp, when informed that her mother will not allow her to stay w/mother, clt reports that she would go to her cousin's but did not have cousin's contact info so we can call her to set this up. As a result pt agreed to to to the [place]. Clinician had t/c w.[facility]LORENA's office and coordinated post-hospital f/u requesting that someone meet pt @ the [place] to provide support, and coordinated transportation upon d/c. Plan: Pt will go to them [place] if she prevails @ 5250 Hearing. Macarena Lucas LCSW Addendum: 11/20/20 at 1506 by Macarena Lucas SS Amended: Links added.
--- NOTE | 2020-11-20 14:35 | NUR ---
Initial: Pt admitted w/ back pain and SI per EMR. Pt able to eat well on Regular diet, mostly 100% of meals meeting needs. M 11/16 with PRN bowel care available though it has not been given. No nutrition intervention implemented at this time, will continue to monitor. Recs: 1. Continue Regular diet as tolerated 2. Bowel care per rx 3. Weekly wts Addendum: 11/20/20 at [address] Amended: Links added.
[2020-11-20] MEDS ORDERED: RISP4TAB73 PO (15:30)
[2020-11-20] MEDS ORDERED: VITC500T PO (15:36)
[2020-11-20] MEDS ORDERED: RISP3TAB63 PO (15:36)
[2020-11-20] MEDS ORDERED: PANT40TA54 PO (15:36)
[2020-11-20] MEDS ORDERED: FER325T PO (15:36)
--- NOTE | 2020-11-20 16:25 | NUR ---
awake overnight monitor Note: Patient was given discharge instructions. Patient verbalized understanding. All questions were answered. Patient was given RXs, including a RX for FeS04. Patient was given scrub bottoms and a hooded coat. Patient denies suicidal ideation. Patient is linear and wants to leave. Patient is walking to the mission because she did not want to wait for a ride. Patient calm and in no distress. Patient did not have any wounds.
[2020-11-23] MEDS ORDERED: FERR325T28 PO (20:58)
[2020-11-23] MEDS ORDERED: PANT40SU2 PO (20:58)
[2020-11-23] MEDS ORDERED: RISP3TAB63 PO (20:58)
[2020-11-23] MEDS ORDERED: VITC500T PO (20:58)
== END 2020-11-20 16:26 | disposition home or self-care (01) | DRG 885 ==
LOC: ER 21:04 → ED HOLD 11-16 11:00 → ADULT MH 11-16 15:35
PROVIDERS: ADMIT Psychiatry & Neurology Psychiatry; ATTEND Psychiatry & Neurology Psychiatry
DX: F20.9 Schizophrenia, unspecified (principal); R45.851 Suicidal ideations; F32.9 Major depressive disorder, single episode, unspecified; D50.9 Iron deficiency anemia, unspecified; D57.1 Sickle-cell disease without crisis; F15.10 Other stimulant abuse, uncomplicated; M54.9 Dorsalgia, unspecified; G89.29 Other chronic pain; K21.9 Gastro-esophageal reflux disease without esophagitis; Z59.00 Homelessness unspecified; Z79.899 Other long term (current) drug therapy
CPT/HCPCS: 36415; 80053; 80061; 80305; 80320; 81003; 81025; 82272; 82728; 83036; 83540; 83550; 84443; 85007; 85008; 85025; 87081; 87635; 99285; C9803

== ENCOUNTER → 2020-11-23 | Emergency (ER) | payer MEDICARE ==
[~2020-11-23] VITALS: Ht 154.9 cm; Wt 54.5 kg
[~2020-11-23] MED LIST changes: -ACET-2119 PO; +FER325T PO; +FERR325T28 PO; -HYDR-3965 PO; +LORazepam 2 mg/ml vial IM ONE; +NO HOME MEDS; -OMEP-84 PO; +PANT40SU2 PO; +PANT40TA54 PO; -RANI300T7 PO; +RISP3TAB63 PO; -TRAM50TA2 PO; +VITC500T PO; +ascorbic acid 500mg tablet PO SCH; +diphenhydrAMINE 50 mg/ml inj IM ONE; +ferrous sulfate 325mg tablet PO SCH; +haloperidol lactate 5mg/ml inj IM ONE; +pantoprazole 40mg Tablet.DR PO SCH; +risperiDONE 0.5mg tablet PO SCH
--- NOTE | 2020-11-23 17:13 | NUR ---
LAB AT BEDSIDE, PT RESPONDING TO INTERNAL STIMULI. AWAITING MEDS
[2020-11-23 17:35] LABS: BASOPHILS # (AUTO) 0.1 X10'3 (0-0.2); BASOPHILS % (AUTO) 0.8 % (0-1); EOSINOPHILS % (AUTO) 0.1 % (0-6); LYMPHOCYTES # (AUTO) 1.6 X10'3 (1.1-4.8); LYMPHOCYTES % (AUTO) 12.1 % (21-51); MEAN PLATELET VOLUME 8.7 FL (7.4-10.4); MONOCYTES # (AUTO) 0.6 X10'3 (0-0.9); MONOCYTES % (AUTO) 4.4 % (2-12); NEUTROPHILS # (AUTO) 10.6 X10'3 (1.8-7.7); NEUTROPHILS % (AUTO) 82.6 % (42-75); PLATELET COUNT 393 X10'3 (140-440); WHITE BLOOD COUNT 12.9 X10'3 (4.5-11.0)
[2020-11-23 17:49] LABS: ALANINE AMINOTRANSFERASE 44 U/L (12-78); ALBUMIN 4.5 G/DL (3.4-5.0); ALBUMIN/GLOBULIN RATIO 0.9 (1.1-1.5); ALKALINE PHOSPHATASE 86 IU/L (46-116); ANION GAP 16 (8-16); ASPARTATE AMINO TRANSFERASE 41 U/L (10-37); BLOOD UREA NITROGEN 22 MG/DL (7-18); BUN/CREATININE RATIO 19.1 (6.6-38.0); CALCIUM 9.5 MG/DL (8.5-10.1); CHLORIDE 106 MMOL/L (99-107); CREATININE 1.15 MG/DL (0.40-0.90); ETHANOL < 0.010 GM/DL (0.0-0.010); GLUCOSE 118 MG/DL (70-104); POTASSIUM 4.2 MMOL/L (3.5-5.1); SODIUM 144 MMOL/L (135-145); TOTAL CARBON DIOXIDE 22.4 MMOL/L (24-32); TOTAL PROTEIN 9.4 G/DL (6.4-8.2); eGFR 63 ML/MIN
[2020-11-23 18:13] LABS: HEMATOCRIT 28.8 % (35.0-45.0); HEMOGLOBIN 8.3 g/dl (12.0-16.0); MEAN CORPUSCULAR HEMOGLOBIN 15.2 PG (27.0-31.0); MEAN CORPUSCULAR HGB CONC 28.9 g/dL (33.0-36.5); MEAN CORPUSCULAR VOLUME 52.6 FL (78-98); RED BLOOD COUNT 5.47 X10'6 (4.20-5.60)
--- NOTE | 2020-11-23 18:36 | NUR ---
ASSUMED CARE OF PATIENT. PT SITTING ON BED AND TALKING TO HERSELF. SOFT RESTRAINTS ARE ON WRISTS. DISTAL CSM IN TACT. PATIENT IN NO APPARENT DISTRESS.
--- NOTE | 2020-11-23 19:10 | NUR ---
PT BACK FROM CT, SOFT RESTRAINTS HAVE BEEN TAKEN OFF. PT WILL SPEAK 2-3 WORDS AND THEN STOP TALKING DURING MY TIME IN THE ROOM. SHE DID REQUEST WATER WITH ICE. SHE IS CURRENTLY DRINKING WATER WHILE SITTING ON THE BED.
[2020-11-23 21:20] LABS: TOTAL CELLS COUNTED 100
[2020-11-23 21:22] LABS: ANISOCYTOSIS 3+; MICROCYTOSIS 3+; PLATELET ESTIMATE NORMAL
[2020-11-23 21:24] LABS: TEAR DROP CELLS FEW
--- NOTE | 2020-11-23 21:24 | NUR ---
The patient moved to bed 23 in the ER and immediately had to use the restroom but did not provide a urine sample. She stated that she forgot to urinate in the cup that was provided.
[2020-11-23 21:26] LABS: LARGE PLATELETS FEW
[2020-11-23 21:30] LABS: HYPOCHROMASIA 2+; POLYCHROMASIA 2+; SCHISTOCYTES 1+
[2020-11-23 21:32] LABS: STOMATOCYTES 1+
--- NOTE | 2020-11-23 22:37 | NUR ---
The patient appears to be sleeping
--- NOTE | 2020-11-23 23:49 | NUR ---
The patient is awake and having a snack.
--- NOTE | 2020-11-24 01:53 | NUR ---
The patient appears to be sleeping
--- NOTE | 2020-11-24 02:50 | NUR ---
The patient was asked to give a urine specimen but so far has not been able to void. She is drinking a lot of water.
--- NOTE | 2020-11-24 03:24 | NUR ---
patient up out of bed and gave a urine sample but is now back asleep
[2020-11-24 03:34] LABS: URINE HCG NEGATIVE (NEG)
[2020-11-24 03:43] LABS: URINE AMPHETAMINE SCREEN POSITIVE (Neg); URINE BARBITUATE SCREEN NEGATIVE (Neg); URINE BENZODIAZEPINES SCREEN NEGATIVE (Neg); URINE CANNABINOID SCREEN NEGATIVE (Neg); URINE COCAINE SCREEN NEGATIVE (Neg); URINE METHADONE SCREEN NEGATIVE (Neg); URINE OPIATE SCREEN NEGATIVE (Neg); URINE PHENCYCLIDINE SCREEN NEGATIVE (Neg)
[2020-11-24 03:47] LABS: UA COLLECTION TYPE VOIDED
[2020-11-24 03:48] LABS: CLARITY,URINE Slightly Cloudy (Clear); COLOR,URINE YELLOW (Yellow); GLUCOSE, URINE NEGATIVE (Neg); PH,URINE 6.5 (4.8-8.0); PROTEIN,URINE NEGATIVE (Neg)
[2020-11-24 03:49] LABS: BACTERIA,URINE FEW /HPF (Neg); KETONES,URINE TRACE mg/dl (Neg); LEUKOCYTE ESTERASE ,URINE NEGATIVE (Neg); NITRITES, URINE NEGATIVE (Neg); OCCULT BLOOD,URINE NEGATIVE (Neg); RBC,URINE NONE SEEN /HPF (0-2); SQUAMOUS EPITHELIAL CELL,UR MODERATE /LPF (FEW); WBC,URINE 0-4 /HPF (0-4)
--- NOTE | 2020-11-24 04:09 | NUR ---
Packet sent to [facility]
[2020-11-24 04:53] VITALS: BP 93/57
--- NOTE | 2020-11-24 07:00 | NUR ---
resting in bed with eyes closed on back. RR 16 unlabored.
--- NOTE | 2020-11-24 08:30 | NUR ---
Patient left overflow unit was found by security and escorted back to room 23.
--- NOTE | 2020-11-24 10:05 | NUR ---
Patient laying in bed awake calm no complaints at this time.
== END | disposition home or self-care (01) ==
LOC: ER 16:27
DX: T18.4XXA Foreign body in colon, initial encounter (principal); F29 Unspecified psychosis not due to a substance or known physiological condition; F20.9 Schizophrenia, unspecified; K21.9 Gastro-esophageal reflux disease without esophagitis; G89.29 Other chronic pain; F32.9 Major depressive disorder, single episode, unspecified; F15.90 Other stimulant use, unspecified, uncomplicated; Z86.2 Personal history of diseases of the blood and blood-forming organs and certain disorders involving the immune mechanism; Z72.89 Other problems related to lifestyle; Z79.82 Long term (current) use of aspirin; X58.XXXA Exposure to other specified factors, initial encounter; Y93.89 Activity, other specified; Y92.89 Other specified places as the place of occurrence of the external cause; Y99.8 Other external cause status
CPT/HCPCS: 36415; 74018; 74176; 80053; 80305; 80320; 81001; 81025; 85007; 85025; 96372; 99285; J1200; J1630; J2060

== ENCOUNTER 2020-11-25 12:55 | Emergency (ER) | payer MEDICARE ==
[~2020-11-25] VITALS: Ht 154.9 cm; Wt 65.0 kg
[~2020-11-25 12:55] MED LIST changes: -FER325T PO; -LORazepam 2 mg/ml vial IM ONE; -NO HOME MEDS; -PANT40TA54 PO; -ascorbic acid 500mg tablet PO SCH; -diphenhydrAMINE 50 mg/ml inj IM ONE; -ferrous sulfate 325mg tablet PO SCH; -haloperidol lactate 5mg/ml inj IM ONE; -pantoprazole 40mg Tablet.DR PO SCH; -risperiDONE 0.5mg tablet PO SCH
[2020-11-25] MEDS ORDERED: risperiDONE 2mg tablet PO ONE (13:55)
[2020-11-25 14:10] VITALS: BP 167/104
[2020-11-25 14:19] LABS: ALANINE AMINOTRANSFERASE 40 U/L (12-78); ALBUMIN 4.2 G/DL (3.4-5.0); ALBUMIN/GLOBULIN RATIO 0.9 (1.1-1.5); ALKALINE PHOSPHATASE 80 IU/L (46-116); ANION GAP 15 (8-16); ASPARTATE AMINO TRANSFERASE 31 U/L (10-37); BILIRUBIN,TOTAL 0.5 MG/DL (0.1-1.0); BLOOD UREA NITROGEN 11 MG/DL (7-18); BUN/CREATININE RATIO 11.8 (6.6-38.0); CALCIUM 9.1 MG/DL (8.5-10.1); CHLORIDE 102 MMOL/L (99-107); CREATININE 0.93 MG/DL (0.40-0.90); ETHANOL 0.075 GM/DL (0.0-0.010); GLUCOSE 90 MG/DL (70-104); POTASSIUM 4.5 MMOL/L (3.5-5.1); SODIUM 138 MMOL/L (135-145); TOTAL CARBON DIOXIDE 21.3 MMOL/L (24-32); TOTAL PROTEIN 8.7 G/DL (6.4-8.2); eGFR 80 ML/MIN
== END 2020-11-25 14:19 | disposition home or self-care (01) ==
LOC: ER 12:56
DX: F29 Unspecified psychosis not due to a substance or known physiological condition (principal); F20.9 Schizophrenia, unspecified; F17.200 Nicotine dependence, unspecified, uncomplicated; F15.10 Other stimulant abuse, uncomplicated; K21.9 Gastro-esophageal reflux disease without esophagitis; G89.29 Other chronic pain; F32.9 Major depressive disorder, single episode, unspecified; Z72.89 Other problems related to lifestyle; Z86.2 Personal history of diseases of the blood and blood-forming organs and certain disorders involving the immune mechanism; Z79.899 Other long term (current) drug therapy
CPT/HCPCS: 36415; 80053; 80320; 99283

== ENCOUNTER 2020-11-25 15:22 | Emergency (ER) | payer MEDICARE ==
[~2020-11-25] VITALS: Ht 157.5 cm; Wt 68.0 kg
[2020-11-25 15:38] VITALS: BP 149/110
== END 2020-11-25 16:19 | disposition home or self-care (01) ==
LOC: ER 15:22
DX: Z02.89 Encounter for other administrative examinations (principal); M54.89 Other dorsalgia; R10.9 Unspecified abdominal pain; M25.569 Pain in unspecified knee; K21.9 Gastro-esophageal reflux disease without esophagitis; G89.29 Other chronic pain; F32.9 Major depressive disorder, single episode, unspecified; F20.9 Schizophrenia, unspecified; F15.90 Other stimulant use, unspecified, uncomplicated; Z86.2 Personal history of diseases of the blood and blood-forming organs and certain disorders involving the immune mechanism; Z72.89 Other problems related to lifestyle; Z79.899 Other long term (current) drug therapy
CPT/HCPCS: 99282

== ENCOUNTER → 2020-11-27 | Emergency (ER) | payer MEDICARE ==
[~2020-11-27] VITALS: Ht 154.9 cm; Wt 68.2 kg
[2020-11-27 11:59] VITALS: BP 144/107
== END ==
LOC: ER 11:47
DX: T18.4XXA Foreign body in colon, initial encounter (principal); K21.9 Gastro-esophageal reflux disease without esophagitis; G89.29 Other chronic pain; F15.90 Other stimulant use, unspecified, uncomplicated; Z86.2 Personal history of diseases of the blood and blood-forming organs and certain disorders involving the immune mechanism; Z79.899 Other long term (current) drug therapy; Z72.89 Other problems related to lifestyle; X58.XXXA Exposure to other specified factors, initial encounter; Y93.89 Activity, other specified; Y92.89 Other specified places as the place of occurrence of the external cause; Y99.8 Other external cause status
CPT/HCPCS: 74018; 99283

== ENCOUNTER 2020-11-28 05:25 | Emergency (ER) | payer SELFPAY ==
[~2020-11-28] VITALS: Ht 160 cm; Wt 68.2 kg
[2020-11-28] MEDS ORDERED: ketorolac trometh inj. 60 MG/2 ML VIAL IM ONE (06:05)
[2020-11-28] MEDS ORDERED: ketorolac trometh. 30mg/ml inj. IM ONE (06:10)
[2020-11-28 06:18] VITALS: BP 130/82
== END 2020-11-28 06:21 | disposition home or self-care (01) ==
LOC: ER 05:26
DX: M54.9 Dorsalgia, unspecified (principal); R06.02 Shortness of breath; R26.89 Other abnormalities of gait and mobility; K21.9 Gastro-esophageal reflux disease without esophagitis; G89.29 Other chronic pain; F15.90 Other stimulant use, unspecified, uncomplicated; Z86.2 Personal history of diseases of the blood and blood-forming organs and certain disorders involving the immune mechanism; Z72.89 Other problems related to lifestyle; Z79.899 Other long term (current) drug therapy
CPT/HCPCS: 96372; 99283; J1885

== ENCOUNTER 2020-12-07 11:10 | Inpatient (IN) | payer SELFPAY ==
[~2020-12-07] VITALS: Ht 157.5 cm; Wt 68.9 kg
[2020-12-07] MEDS ORDERED: NAPR-996 PO (11:45)
[2020-12-07 14:56] LABS: BASOPHILS # (AUTO) 0.1 X10'3 (0-0.2); EOSINOPHILS # (AUTO) 0.1 X10'3 (0-0.9); EOSINOPHILS % (AUTO) 1.7 % (0-6); LYMPHOCYTES # (AUTO) 1.9 X10'3 (1.1-4.8); LYMPHOCYTES % (AUTO) 30.6 % (21-51); MEAN PLATELET VOLUME 8.2 FL (7.4-10.4); MONOCYTES # (AUTO) 0.4 X10'3 (0-0.9); MONOCYTES % (AUTO) 6.2 % (2-12); NEUTROPHILS # (AUTO) 3.8 X10'3 (1.8-7.7); NEUTROPHILS % (AUTO) 60.5 % (42-75); PLATELET COUNT 384 X10'3 (140-440); WHITE BLOOD COUNT 6.3 X10'3 (4.5-11.0)
[2020-12-07 15:23] LABS: HEMATOCRIT 23.5 % (35.0-45.0); MEAN CORPUSCULAR HEMOGLOBIN 15.7 PG (27.0-31.0); MEAN CORPUSCULAR VOLUME 53.5 FL (78-98); RED BLOOD COUNT 4.38 X10'6 (4.20-5.60)
[2020-12-07 15:24] LABS: MEAN CORPUSCULAR HGB CONC 29.4 g/dL (33.0-36.5); RED CELL DISTRIBUTION WIDTH 26.5 % (11.5-14.5)
[2020-12-07 15:27] LABS: HEMOGLOBIN 6.9 g/dl (12.0-16.0)
[2020-12-07 15:34] LABS: ALANINE AMINOTRANSFERASE 33 U/L (12-78); ALBUMIN 3.5 G/DL (3.4-5.0); ALBUMIN/GLOBULIN RATIO 0.9 (1.1-1.5); ALKALINE PHOSPHATASE 62 IU/L (46-116); ANION GAP 6 (8-16); ASPARTATE AMINO TRANSFERASE 21 U/L (10-37); BILIRUBIN,TOTAL 0.3 MG/DL (0.1-1.0); BLOOD UREA NITROGEN 10 MG/DL (7-18); CALCIUM 8.4 MG/DL (8.5-10.1); CHLORIDE 108 MMOL/L (99-107); ETHANOL 0.045 GM/DL (0.0-0.010); GLUCOSE 83 MG/DL (70-104); SODIUM 139 MMOL/L (135-145); TOTAL CARBON DIOXIDE 25.2 MMOL/L (24-32); TOTAL PROTEIN 7.5 G/DL (6.4-8.2); eGFR 74 ML/MIN
[2020-12-07 16:00] LABS: URINE HCG NEGATIVE (NEG)
[2020-12-07 16:10] LABS: URINE AMPHETAMINE SCREEN POSITIVE (Neg); URINE BARBITUATE SCREEN NEGATIVE (Neg); URINE BENZODIAZEPINES SCREEN NEGATIVE (Neg); URINE CANNABINOID SCREEN NEGATIVE (Neg); URINE COCAINE SCREEN NEGATIVE (Neg); URINE METHADONE SCREEN NEGATIVE (Neg); URINE OPIATE SCREEN NEGATIVE (Neg); URINE PHENCYCLIDINE SCREEN NEGATIVE (Neg)
--- NOTE | 2020-12-07 16:31 | NUR ---
PT STATES, HAVENT BEEN FEELING WELL. LOW BACK, RIGHT LEG, STOMACH HURTING. NO THOUGHTS OF HURTING SELF OR OTHER AT THIS TIME.
[2020-12-07 17:02] LABS: CLARITY,URINE CLEAR (Clear); COLOR,URINE YELLOW (Yellow); GLUCOSE, URINE NEGATIVE (Neg); KETONES,URINE NEGATIVE (Neg); LEUKOCYTE ESTERASE ,URINE NEGATIVE (Neg); NITRITES, URINE NEGATIVE (Neg); OCCULT BLOOD,URINE NEGATIVE (Neg); PROTEIN,URINE NEGATIVE (Neg); UA COLLECTION TYPE CLN CATCH MIDSTREAM; UROBILINOGEN,URINE 0.2 E.U/dL (0.2-1.0)
--- NOTE | 2020-12-07 17:11 | NUR ---
WHEN ASKED HOW SHE WAS GOING TO HURT SELF, PT STATES, "PROBABLY LIKE TAKING PILLS, I DONT KNOW SOMETHING!"
--- NOTE | 2020-12-07 17:20 | NUR ---
pt continues to c/o low back pain. informed leo casillas. please see new orders.
[2020-12-07] MEDS ORDERED: ketorolac tromethamine 15mg/ml inj. IV ONE (17:25)
[2020-12-07 17:44] LABS: ANISOCYTOSIS 3+; MICROCYTOSIS 3+; PLATELET ESTIMATE NORMAL; TARGET CELLS FEW; TEAR DROP CELLS FEW
[2020-12-07 17:46] LABS: HYPOCHROMASIA 3+; POLYCHROMASIA 1+
[2020-12-07 18:15] LABS: BASOPHILS # (AUTO) 0.1 X10'3 (0-0.2); BASOPHILS % (AUTO) 1.2 % (0-1); EOSINOPHILS # (AUTO) 0.1 X10'3 (0-0.9); EOSINOPHILS % (AUTO) 1.9 % (0-6); LYMPHOCYTES # (AUTO) 1.9 X10'3 (1.1-4.8); LYMPHOCYTES % (AUTO) 29.6 % (21-51); MEAN PLATELET VOLUME 8.6 FL (7.4-10.4); MONOCYTES # (AUTO) 0.6 X10'3 (0-0.9); MONOCYTES % (AUTO) 8.8 % (2-12); NEUTROPHILS # (AUTO) 3.8 X10'3 (1.8-7.7); NEUTROPHILS % (AUTO) 58.5 % (42-75); PLATELET COUNT 371 X10'3 (140-440); WHITE BLOOD COUNT 6.5 X10'3 (4.5-11.0)
--- NOTE | 2020-12-07 18:26 | NUR ---
ASSUMED PT CARE. PT SHOWS NO S/S OF ACUTE DISTRESS. PT SITTING UPRIGHT EATING MEAL. PT HAS NO REQUESTS OR COMPLAINTS AT THIS TIME.
[2020-12-07 18:34] LABS: MEAN CORPUSCULAR HEMOGLOBIN 15.9 PG (27.0-31.0); MEAN CORPUSCULAR VOLUME 53.2 FL (78-98); RED BLOOD COUNT 4.13 X10'6 (4.20-5.60)
[2020-12-07 18:35] LABS: MEAN CORPUSCULAR HGB CONC 29.9 g/dL (33.0-36.5); RED CELL DISTRIBUTION WIDTH 26.7 % (11.5-14.5)
[2020-12-07 18:41] LABS: HEMOGLOBIN 6.6 g/dl (12.0-16.0)
--- NOTE | 2020-12-07 19:33 | NUR ---
PT RESTING IN BED. BED LOCKED AND LOW, BED RAILS RAISED. PT HAS NO CURRENT REQUESTS OR COMPLAINTS. RESP EQUAL AND UNLABORED.
--- NOTE | 2020-12-07 19:59 | NUR ---
PT HAS TORN UP JUICE BOX AND PLASTIC STRAW IN HER BED. PT REFUSING TO ALLOW ME TO THROW THEM AWAY. I TOLD PT WE NEED TO THROW OUT THIS TRASH AND SHE IS NOT ABLE TO HAVE A PLASTIC STRAW. PT BEGAN SHOWING SIGN OF AGITATION, AND TRYING TO MAKE DEMANDS. I WAS ABLE TO TALK HER DOWN AND SHE GAVE ME THE TRASH AND STRAW.
[2020-12-07] MEDS ORDERED: mag hydrox/Alum hydrox/simeth 30ml oral suspension PO PRN ×2 (20:40→20:50)
[2020-12-07] MEDS ORDERED: HYDROmorphone inj. 0.5 MG/0.5 ML DISP.SYRIN IV PRN (20:40)
[2020-12-07] MEDS ORDERED: magnesium hydroxide 30ml (MOM) UD suspension PO PRN (20:40)
[2020-12-07] MEDS ORDERED: morphine 2 MG/ML inj. syringe IV PRN ×2 (20:40)
[2020-12-07] MEDS ORDERED: diphenhydrAMINE 50 mg/ml inj IV PRN (20:40)
[2020-12-07] MEDS ORDERED: bisacodyl 10mg suppository rectal RC PRN (20:40)
[2020-12-07] MEDS ORDERED: ondansetron/PF 4mg/2ml inj IV PRN (20:40)
[2020-12-07] MEDS ORDERED: ondansetron 4mg rapidly disintigrating tab PO PRN (20:40)
[2020-12-07] MEDS ORDERED: acetaminophen 650mg rectal suppository RC PRN (20:40)
[2020-12-07] MEDS ORDERED: diphenhydrAMINE 25mg capsule PO PRN (20:40)
[2020-12-07] MEDS ORDERED: acetaminophen 325mg tablet PO PRN ×2 (20:40)
[2020-12-07] MEDS ORDERED: haloperidol 5mg tablet PO PRN (20:50)
[2020-12-07] MEDS ORDERED: LORazepam 2 mg/ml vial IV PRN (20:50)
[2020-12-07] MEDS ORDERED: dicyclomine 10 MG capsule PO PRN (20:50)
[2020-12-07] MEDS ORDERED: haloperidol lactate 5mg/ml inj IM PRN (20:50)
[2020-12-07] MEDS ORDERED: cyclobenzaprine 10mg tablet PO PRN (20:50)
[2020-12-07] MEDS ORDERED: dextrose 50%-water 50ml dispensing syringe IV PRN (20:50)
[2020-12-07] MEDS ORDERED: temazepam 15mg capsule PO PRN (21:00)
--- NOTE | 2020-12-07 21:20 | NUR ---
PT APEARS TO BE TALKING TO PEOPLE IN HER ROOM. STATES "I DONT WANT THOSE MEN COMING IN HERE MESSING WITH MY STUFF. IM TRYING TO BE GOOD." PT WRITING ON THE FLOOR WITH HER FINGERS. WHEN ASKED IF SHE IS HEARING VOICES, PT REPLIED "NO".
[2020-12-07 21:23] LABS: MAGNESIUM 1.8 MG/DL (1.5-2.4); PHOSPHORUS 3.2 MG/DL (2.3-4.5)
--- NOTE | 2020-12-07 21:33 | NUR ---
PT PACING IN ROOM, KEEPS WALKING OUT OF ROOM TRYING TO GO INTO OTHER ROOM. PT REDIRECTED.
--- NOTE | 2020-12-07 21:35 | NUR ---
IT WAS REPORTED TO ME FROM OTHER RN THAT PT WAS VISUALIZED CLOSING CURTAIN, RN TOLD PT SHE NEEDS TO LEAVE IT OPEN FOR OBSERVATION. PT WAS OBSERVED INSERTING UNKOWN OBJECT INTO VAGINAL AREA. PT DENIES THIS.
[2020-12-07 21:45] LABS: PARTIAL THROMBOPLASTIN TIME 21 SECONDS (22-32)
[2020-12-07] MEDS: risperiDONE 0.5mg tablet PO SCH (21:46)
[2020-12-07] MEDS: HYDROcodone/acetaminophen 10/325mg tab PO PRN (21:46)
--- NOTE | 2020-12-07 22:15 | NUR ---
PT COMPLAINING OF BACK PAIN. ASKING FOR MEDICATIONS TO HELP "CALM ME DOWN AND HELP ME RELAX AND SLEEP." PT WAS ADMINISTERED PO PRN MEDICATIONS PER ORDER.
--- NOTE | 2020-12-07 23:40 | NUR ---
DISCUSSED W/ PT THE NEED FOR BLOOD TRANSFUSION. PT CONSENT FOR TREATMENT. BLOOD CONSENT SIGNED.
[2020-12-08 00:56] VITALS: BP 105/58
[2020-12-08 01:16] VITALS: BP 108/59
[2020-12-08 03:09] VITALS: BP 107/68
[2020-12-08] MEDS: dextrose 5%-1/2 normal saline 1,000 ML IV SCH ×3 (03:36→16:40)
--- NOTE | 2020-12-08 04:01 | NUR ---
PT UP TO COMMODE. NOTICED SOMETHING RED IN PT RIGHT HAND. PT HANDED ME THE OBJECT. IT WAS A BOTTLE OF NAIL QATARI. PT HAD IT TUCKED BETWEEN BOTTOCKS. NAIL QATARI WAS PLACED IN BELONGINGS BAG.
--- NOTE | 2020-12-08 04:03 | NUR ---
PT COMPLIAINING ABOUT IV, STATING " I DONT WANT THIS IN, IT FEELS WEIRD." I EXPLAINED SHE NEEDS THE IV FOR FLUIDS. PT TOLERANT AT THIS TIME.
[2020-12-08 04:14] LABS: BASOPHILS # (AUTO) 0.1 X10'3 (0-0.2); EOSINOPHILS # (AUTO) 0.1 X10'3 (0-0.9); EOSINOPHILS % (AUTO) 1.9 % (0-6); HEMATOCRIT 22.4 % (35.0-45.0); LYMPHOCYTES # (AUTO) 2.4 X10'3 (1.1-4.8); LYMPHOCYTES % (AUTO) 41.6 % (21-51); MEAN CORPUSCULAR HGB CONC 29.7 g/dL (33.0-36.5); MEAN CORPUSCULAR VOLUME 60.7 FL (78-98); MEAN PLATELET VOLUME 8.7 FL (7.4-10.4); MONOCYTES # (AUTO) 0.3 X10'3 (0-0.9); MONOCYTES % (AUTO) 5.1 % (2-12); NEUTROPHILS # (AUTO) 2.9 X10'3 (1.8-7.7); NEUTROPHILS % (AUTO) 50.4 % (42-75); PLATELET COUNT 291 X10'3 (140-440); RED BLOOD COUNT 3.69 X10'6 (4.20-5.60); RED CELL DISTRIBUTION WIDTH 32.2 % (11.5-14.5); WHITE BLOOD COUNT 5.8 X10'3 (4.5-11.0)
[2020-12-08 04:25] LABS: ALANINE AMINOTRANSFERASE 27 U/L (12-78); ALBUMIN 2.8 G/DL (3.4-5.0); ALBUMIN/GLOBULIN RATIO 0.8 (1.1-1.5); ALKALINE PHOSPHATASE 49 IU/L (46-116); ANION GAP 9 (8-16); ASPARTATE AMINO TRANSFERASE 20 U/L (10-37); BILIRUBIN,TOTAL 0.5 MG/DL (0.1-1.0); BLOOD UREA NITROGEN 15 MG/DL (7-18); BUN/CREATININE RATIO 17.4 (6.6-38.0); CALCIUM 8.1 MG/DL (8.5-10.1); CHLORIDE 111 MMOL/L (99-107); CHOLESTEROL 70 MG/DL (0-200); CREATININE 0.86 MG/DL (0.40-0.90); GLUCOSE 90 MG/DL (70-104); HDL CHOLESTEROL 35 MG/DL (35-60); HEMOGLOBIN 6.7 g/dl (12.0-16.0); LDL CHOLESTEROL 35 MG/DL (50-100); POTASSIUM 4.4 MMOL/L (3.5-5.1); SODIUM 144 MMOL/L (135-145); TOTAL CARBON DIOXIDE 24.2 MMOL/L (24-32); TOTAL PROTEIN 6.1 G/DL (6.4-8.2); TRIGLYCERIDES 30 MG/DL (20-135); eGFR 88 ML/MIN
--- NOTE | 2020-12-08 05:15 | NUR ---
PT RESTING W/ EYES CLOSED. RESP EVEN AND UNLABORED.
--- NOTE | 2020-12-08 06:15 | NUR ---
PT RESTING. NO COMPLAINTS OR REQUESTS
[2020-12-08 06:38] LABS: ANISOCYTOSIS 3+; HYPOCHROMASIA 2+; MICROCYTOSIS 2+; PLATELET ESTIMATE NORMAL
[2020-12-08 06:39] LABS: POIKILOCYTOSIS FEW; POLYCHROMASIA FEW; TARGET CELLS FEW; TEAR DROP CELLS FEW
[2020-12-08] MEDS ORDERED: folic acid 1mg/0.2ml inj IV SCH (08:00)
[2020-12-08] MEDS ORDERED: folic acid inj. 2 MG, thiamine inj. 100 MG, MVI, adult No.4 with vit. K 10 ML in dextro... IV SCH ×4 (08:00)
[2020-12-08] MEDS: pantoprazole 40mg Tablet.DR PO SCH (11:07)
[2020-12-08] MEDS: ascorbic acid 500mg tablet PO SCH (11:07)
[2020-12-08] MEDS: docusate sod 100mg capsule PO SCH (11:07)
[2020-12-08] MEDS: ferrous sulfate 325mg tablet PO SCH ×2 (11:07→15:09)
[2020-12-08] MEDS: heparin, porcine 5000 units/ml vial SQ SCH (11:08)
[2020-12-08] MEDS: thiamine inj. 100 MG in normal saline 100ml IV soln 100 ML IV SCH (11:08)
[2020-12-08 12:24] LABS: BASOPHILS # (AUTO) 0.1 X10'3 (0-0.2); BASOPHILS % (AUTO) 1.4 % (0-1); EOSINOPHILS # (AUTO) 0.1 X10'3 (0-0.9); EOSINOPHILS % (AUTO) 1.8 % (0-6); HEMATOCRIT 23.9 % (35.0-45.0); LYMPHOCYTES # (AUTO) 2.1 X10'3 (1.1-4.8); LYMPHOCYTES % (AUTO) 32.2 % (21-51); MEAN CORPUSCULAR HEMOGLOBIN 17.6 PG (27.0-31.0); MEAN CORPUSCULAR HGB CONC 29.3 g/dL (33.0-36.5); MEAN CORPUSCULAR VOLUME 59.9 FL (78-98); MEAN PLATELET VOLUME 8.8 FL (7.4-10.4); MONOCYTES # (AUTO) 0.5 X10'3 (0-0.9); MONOCYTES % (AUTO) 7.6 % (2-12); NEUTROPHILS # (AUTO) 3.7 X10'3 (1.8-7.7); PLATELET COUNT 299 X10'3 (140-440); RED BLOOD COUNT 3.99 X10'6 (4.20-5.60); WHITE BLOOD COUNT 6.5 X10'3 (4.5-11.0)
--- NOTE | 2020-12-08 12:49 | NUR ---
Critical H/H results told to bedside nurse Desirae MCMULLEN
--- NOTE | 2020-12-08 15:05 | NUR ---
Pt. is awake now and agitated, making statements about wanting to walk out the door. Pt. redirected to sit on bed. Pt. will be given PRN medication for anxiety.
--- NOTE | 2020-12-08 22:30 | NUR ---
Patient is sleeping soundly. Pt is rousable, but quickly falls back to sleep. Pt is not a safe swallow at this time.
[2020-12-09 00:05] LABS: MEAN CORPUSCULAR HEMOGLOBIN 17.3 PG (27.0-31.0); MEAN CORPUSCULAR HGB CONC 29.2 g/dL (33.0-36.5); MEAN CORPUSCULAR VOLUME 59.1 FL (78-98); MEAN PLATELET VOLUME 8.9 FL (7.4-10.4); PLATELET COUNT 260 X10'3 (140-440); RED BLOOD COUNT 4.07 X10'6 (4.20-5.60); RED CELL DISTRIBUTION WIDTH 32.9 % (11.5-14.5); WHITE BLOOD COUNT 6.1 X10'3 (4.5-11.0)
[2020-12-09] MEDS: dextrose 5%-1/2 normal saline 1,000 ML IV SCH ×3 (02:40→23:33)
[2020-12-09 03:00] VITALS: BP 127/82
[2020-12-09 05:34] LABS: BASOPHILS # (AUTO) 0.1 X10'3 (0-0.2); BASOPHILS % (AUTO) 1.6 % (0-1); EOSINOPHILS # (AUTO) 0.2 X10'3 (0-0.9); EOSINOPHILS % (AUTO) 2.5 % (0-6); HEMATOCRIT 23.5 % (35.0-45.0); HEMOGLOBIN 7.1 g/dl (12.0-16.0); LYMPHOCYTES # (AUTO) 1.9 X10'3 (1.1-4.8); LYMPHOCYTES % (AUTO) 31.3 % (21-51); MEAN CORPUSCULAR HEMOGLOBIN 17.8 PG (27.0-31.0); MEAN CORPUSCULAR HGB CONC 30.1 g/dL (33.0-36.5); MEAN CORPUSCULAR VOLUME 59.1 FL (78-98); MONOCYTES # (AUTO) 0.5 X10'3 (0-0.9); MONOCYTES % (AUTO) 7.6 % (2-12); NEUTROPHILS # (AUTO) 3.5 X10'3 (1.8-7.7); PLATELET COUNT 331 X10'3 (140-440); RED BLOOD COUNT 3.98 X10'6 (4.20-5.60); RED CELL DISTRIBUTION WIDTH 32.1 % (11.5-14.5); WHITE BLOOD COUNT 6.2 X10'3 (4.5-11.0)
[2020-12-09 05:47] LABS: ALANINE AMINOTRANSFERASE 23 U/L (12-78); ALBUMIN 2.6 G/DL (3.4-5.0); ALBUMIN/GLOBULIN RATIO 0.7 (1.1-1.5); ALKALINE PHOSPHATASE 49 IU/L (46-116); ANION GAP 9 (8-16); ASPARTATE AMINO TRANSFERASE 18 U/L (10-37); BILIRUBIN,TOTAL 0.5 MG/DL (0.1-1.0); BLOOD UREA NITROGEN 6 MG/DL (7-18); CHLORIDE 108 MMOL/L (99-107); CREATININE 0.75 MG/DL (0.40-0.90); GLUCOSE 80 MG/DL (70-104); POTASSIUM 3.6 MMOL/L (3.5-5.1); SODIUM 143 MMOL/L (135-145); TOTAL CARBON DIOXIDE 26.4 MMOL/L (24-32); TOTAL PROTEIN 6.1 G/DL (6.4-8.2); eGFR > 90 ML/MIN
[2020-12-09 06:30] VITALS: BP 133/83
--- NOTE | 2020-12-09 06:30 | NUR ---
Patient in room GUILLERMO 357. I have received report from KEMI Quintanilla and had the opportunity to ask questions and assume patient care.
--- NOTE | 2020-12-09 07:04 | NUR ---
0300 PT RECEIVED FROM ED VIA STRETCHER . IV INFILTRATED IVFS STOPPED . ATTEMPTED TO RESTART IV BUT UNSUCCESSFUL SITTER AT BEDSIDE
[2020-12-09 07:15] LABS: ANISOCYTOSIS 3+; MICROCYTOSIS 3+; PLATELET ESTIMATE NORMAL; POLYCHROMASIA 1+
[2020-12-09 07:16] LABS: HYPOCHROMASIA 1+; POIKILOCYTOSIS FEW
[2020-12-09] MEDS: pantoprazole 40mg Tablet.DR PO SCH (07:30)
[2020-12-09] MEDS: ferrous sulfate 325mg tablet PO SCH ×4 (07:59→17:26)
[2020-12-09] MEDS: ascorbic acid 500mg tablet PO SCH ×2 (08:00→21:43)
[2020-12-09] MEDS: docusate sod 100mg capsule PO SCH ×2 (08:00→21:43)
[2020-12-09] MEDS: folic acid 1mg tablet PO SCH (08:00)
[2020-12-09] MEDS: heparin, porcine 5000 units/ml vial SQ SCH ×3 (08:00→21:45)
[2020-12-09] MEDS: risperiDONE 0.5mg tablet PO SCH ×2 (08:00→21:43)
[2020-12-09] MEDS: thiamine inj. 100 MG in normal saline 100ml IV soln 100 ML IV SCH (10:07)
[2020-12-09 11:00] VITALS: BP 146/76
[2020-12-09] MEDS ORDERED: magnesium hydroxide 30ml (MOM) UD suspension PO ONE (14:00)
--- NOTE | 2020-12-09 18:30 | NUR ---
Problems reprioritized. Patient report given, questions answered & plan of care reviewed with KEMI Quintanilla.
[2020-12-09 19:00] VITALS: BP 150/98
[2020-12-09] MEDS ORDERED: LORazepam 2 mg/ml vial IV PRN (20:50)
[2020-12-09] MEDS ORDERED: LORazepam 1 MG tablet PO PRN (20:50)
[2020-12-10] VITALS: BP 129/80
[2020-12-10 05:40] LABS: BASOPHILS # (AUTO) 0.1 X10'3 (0-0.2); BASOPHILS % (AUTO) 1.2 % (0-1); EOSINOPHILS # (AUTO) 0.2 X10'3 (0-0.9); EOSINOPHILS % (AUTO) 2.5 % (0-6); HEMATOCRIT 24.9 % (35.0-45.0); HEMOGLOBIN 7.5 g/dl (12.0-16.0); LYMPHOCYTES # (AUTO) 2.4 X10'3 (1.1-4.8); LYMPHOCYTES % (AUTO) 34.3 % (21-51); MEAN CORPUSCULAR VOLUME 59.9 FL (78-98); MEAN PLATELET VOLUME 8.9 FL (7.4-10.4); MONOCYTES # (AUTO) 0.6 X10'3 (0-0.9); MONOCYTES % (AUTO) 8.9 % (2-12); NEUTROPHILS # (AUTO) 3.7 X10'3 (1.8-7.7); NEUTROPHILS % (AUTO) 53.1 % (42-75); PLATELET COUNT 326 X10'3 (140-440); RED BLOOD COUNT 4.15 X10'6 (4.20-5.60); RED CELL DISTRIBUTION WIDTH 32.4 % (11.5-14.5)
[2020-12-10 05:58] LABS: ALANINE AMINOTRANSFERASE 16 U/L (12-78); ALBUMIN 2.4 G/DL (3.4-5.0); ALBUMIN/GLOBULIN RATIO 0.7 (1.1-1.5); ALKALINE PHOSPHATASE 53 IU/L (46-116); ANION GAP 9 (8-16); ASPARTATE AMINO TRANSFERASE 15 U/L (10-37); BILIRUBIN,TOTAL 0.4 MG/DL (0.1-1.0); BLOOD UREA NITROGEN 7 MG/DL (7-18); BUN/CREATININE RATIO 8.4 (6.6-38.0); CALCIUM 8.1 MG/DL (8.5-10.1); CHLORIDE 110 MMOL/L (99-107); CREATININE 0.83 MG/DL (0.40-0.90); GLUCOSE 146 MG/DL (70-104); POTASSIUM 3.9 MMOL/L (3.5-5.1); SODIUM 144 MMOL/L (135-145); TOTAL CARBON DIOXIDE 25.1 MMOL/L (24-32); TOTAL PROTEIN 5.8 G/DL (6.4-8.2); eGFR > 90 ML/MIN
--- NOTE | 2020-12-10 06:15 | NUR ---
Patient in room GUILLERMO 357. I have received report from KEMI Quintanilla and had the opportunity to ask questions and assume patient care.
[2020-12-10 06:30] VITALS: BP 133/77
[2020-12-10] MEDS: folic acid 1mg tablet PO SCH (09:10)
[2020-12-10] MEDS: pantoprazole 40mg Tablet.DR PO SCH (09:10)
[2020-12-10] MEDS: ascorbic acid 500mg tablet PO SCH ×2 (09:10→20:01)
[2020-12-10] MEDS: ferrous sulfate 325mg tablet PO SCH ×3 (09:10→17:28)
[2020-12-10] MEDS: thiamine inj. 100 MG in normal saline 100ml IV soln 100 ML IV SCH (09:10)
[2020-12-10] MEDS: docusate sod 100mg capsule PO SCH ×2 (09:10→20:01)
[2020-12-10] MEDS: dextrose 5%-1/2 normal saline 1,000 ML IV SCH ×3 (09:11→19:56)
[2020-12-10] MEDS: heparin, porcine 5000 units/ml vial SQ SCH ×2 (09:11→20:01)
[2020-12-10 10:39] LABS: ANISOCYTOSIS 3+; HYPOCHROMASIA 3+; MICROCYTOSIS 3+; PLATELET ESTIMATE NORMAL
[2020-12-10 10:40] LABS: POLYCHROMASIA 2+; SCHISTOCYTES 1+; TEAR DROP CELLS 1+
[2020-12-10 11:00] VITALS: BP 116/76
[2020-12-10 18:00] VITALS: BP 133/80
--- NOTE | 2020-12-10 18:40 | NUR ---
Problems reprioritized. Patient report given, questions answered & plan of care reviewed with KEMI Currie.
--- NOTE | 2020-12-10 19:11 | NUR ---
Patient in room GUILLERMO 357. I have received report from KEMI Ceron and had the opportunity to ask questions and assume patient care.
--- NOTE | 2020-12-10 19:12 | NUR ---
Patient in room GUILLERMO 357. I have received report from KEMI Ceron and had the opportunity to ask questions and assume patient care.
--- NOTE | 2020-12-10 19:12 | NUR ---
I have received report from KEMI Ceron and had the opportunity to ask questions and assume patient care.
[2020-12-10] MEDS: HYDROcodone/acetaminophen 10/325mg tab PO PRN (19:57)
[2020-12-10] MEDS: risperiDONE 0.5mg tablet PO SCH (20:07)
[2020-12-11] VITALS: BP 112/71
[2020-12-11 06:19] LABS: BASOPHILS # (AUTO) 0.1 X10'3 (0-0.2); BASOPHILS % (AUTO) 1.1 % (0-1); EOSINOPHILS # (AUTO) 0.3 X10'3 (0-0.9); EOSINOPHILS % (AUTO) 3.5 % (0-6); LYMPHOCYTES # (AUTO) 2.7 X10'3 (1.1-4.8); LYMPHOCYTES % (AUTO) 36.2 % (21-51); MEAN PLATELET VOLUME 9.2 FL (7.4-10.4); MONOCYTES # (AUTO) 0.5 X10'3 (0-0.9); MONOCYTES % (AUTO) 7.1 % (2-12); NEUTROPHILS # (AUTO) 3.9 X10'3 (1.8-7.7); NEUTROPHILS % (AUTO) 52.1 % (42-75); PLATELET COUNT 302 X10'3 (140-440); WHITE BLOOD COUNT 7.5 X10'3 (4.5-11.0)
--- NOTE | 2020-12-11 06:29 | NUR ---
Problems reprioritized. Patient report given, questions answered & plan of care reviewed with KEMI Adams.
--- NOTE | 2020-12-11 06:30 | NUR ---
Patient in room GUILLERMO 357. I have received report from Jie MCMULLEN and had the opportunity to ask questions and assume patient care.
[2020-12-11 06:38] LABS: ALANINE AMINOTRANSFERASE 18 U/L (12-78); ALBUMIN 2.4 G/DL (3.4-5.0); ALBUMIN/GLOBULIN RATIO 0.7 (1.1-1.5); ALKALINE PHOSPHATASE 52 IU/L (46-116); ANION GAP 9 (8-16); ASPARTATE AMINO TRANSFERASE 13 U/L (10-37); BILIRUBIN,TOTAL 0.3 MG/DL (0.1-1.0); BLOOD UREA NITROGEN 9 MG/DL (7-18); CALCIUM 8.1 MG/DL (8.5-10.1); CHLORIDE 111 MMOL/L (99-107); CREATININE 0.82 MG/DL (0.40-0.90); GLUCOSE 110 MG/DL (70-104); POTASSIUM 3.9 MMOL/L (3.5-5.1); SODIUM 144 MMOL/L (135-145); TOTAL CARBON DIOXIDE 24.4 MMOL/L (24-32); TOTAL PROTEIN 5.7 G/DL (6.4-8.2); eGFR > 90 ML/MIN
--- NOTE | 2020-12-11 06:39 | NUR ---
Student documentation: I have reviewed and agree with all interventions, assessments,andreport given to KEMI Adams performed and documented by .
[2020-12-11 08:00] VITALS: BP 133/70
[2020-12-11] MEDS: thiamine inj. 100 MG in normal saline 100ml IV soln 100 ML IV SCH (08:34)
[2020-12-11] MEDS: ferrous sulfate 325mg tablet PO SCH ×3 (08:35→20:23)
[2020-12-11] MEDS: heparin, porcine 5000 units/ml vial SQ SCH ×2 (08:35→20:25)
[2020-12-11] MEDS: folic acid 1mg tablet PO SCH (08:35)
[2020-12-11] MEDS: pantoprazole 40mg Tablet.DR PO SCH (08:35)
[2020-12-11] MEDS: ascorbic acid 500mg tablet PO SCH ×2 (08:35→20:22)
[2020-12-11 08:36] LABS: HEMATOCRIT 26.7 % (35.0-45.0); MEAN CORPUSCULAR HEMOGLOBIN 17.7 PG (27.0-31.0); MEAN CORPUSCULAR HGB CONC 29.9 g/dL (33.0-36.5); RED BLOOD COUNT 4.52 X10'6 (4.20-5.60)
[2020-12-11] MEDS: HYDROcodone/acetaminophen 10/325mg tab PO PRN ×3 (08:36→20:22)
[2020-12-11] MEDS: docusate sod 100mg capsule PO SCH ×2 (08:36→20:27)
[2020-12-11] MEDS: dextrose 5%-1/2 normal saline 1,000 ML IV SCH (08:36)
[2020-12-11 10:59] LABS: ANISOCYTOSIS 3+; HYPOCHROMASIA 3+; PLATELET ESTIMATE NORMAL
[2020-12-11 11:00] VITALS: BP 126/71
[2020-12-11 11:00] LABS: MICROCYTOSIS 3+; SCHISTOCYTES FEW; TARGET CELLS FEW; TEAR DROP CELLS FEW
[2020-12-11 18:00] VITALS: BP 133/80
--- NOTE | 2020-12-11 19:13 | NUR ---
I have received report from KEMI Hernandez and had the opportunity to ask questions and assume patient care.
--- NOTE | 2020-12-11 19:33 | NUR ---
Problems reprioritized. Patient report given, questions answered & plan of care reviewed with Kush MCMULLEN.
[2020-12-11] MEDS: risperiDONE 0.5mg tablet PO SCH (20:24)
[2020-12-11] MEDS ORDERED: LORazepam 1 MG tablet PO PRN (20:50)
[2020-12-11] MEDS ORDERED: LORazepam 2 mg/ml vial IV PRN (20:50)
[2020-12-12] MEDS: dextrose 5%-1/2 normal saline 1,000 ML IV SCH ×3 (02:01→20:40)
--- NOTE | 2020-12-12 06:22 | NUR ---
Problems reprioritized. Patient report given, questions answered & plan of care reviewed with KEMI Adams.
--- NOTE | 2020-12-12 06:30 | NUR ---
Patient in room GUILLERMO 357. I have received report from Kush MCMULLEN and had the opportunity to ask questions and assume patient care.
[2020-12-12] MEDS: thiamine inj. 100 MG in normal saline 100ml IV soln 100 ML IV SCH (07:18)
[2020-12-12] MEDS: heparin, porcine 5000 units/ml vial SQ SCH ×2 (07:20→21:32)
[2020-12-12] MEDS: ascorbic acid 500mg tablet PO SCH ×2 (07:21→21:30)
[2020-12-12] MEDS: ferrous sulfate 325mg tablet PO SCH ×3 (07:21→21:31)
[2020-12-12] MEDS: pantoprazole 40mg Tablet.DR PO SCH (07:21)
[2020-12-12] MEDS: folic acid 1mg tablet PO SCH (07:22)
[2020-12-12] MEDS: docusate sod 100mg capsule PO SCH ×2 (07:22→21:31)
[2020-12-12] MEDS: HYDROcodone/acetaminophen 10/325mg tab PO PRN (07:22)
[2020-12-12 08:00] VITALS: BP 115/75
[2020-12-12 08:10] LABS: ALANINE AMINOTRANSFERASE 16 U/L (12-78); ALBUMIN 2.5 G/DL (3.4-5.0); ALBUMIN/GLOBULIN RATIO 0.8 (1.1-1.5); ALKALINE PHOSPHATASE 49 IU/L (46-116); ANION GAP 6 (8-16); ASPARTATE AMINO TRANSFERASE 15 U/L (10-37); BILIRUBIN,TOTAL 0.3 MG/DL (0.1-1.0); BLOOD UREA NITROGEN 8 MG/DL (7-18); BUN/CREATININE RATIO 10.7 (6.6-38.0); CALCIUM 8.2 MG/DL (8.5-10.1); CHLORIDE 109 MMOL/L (99-107); CREATININE 0.75 MG/DL (0.40-0.90); GLUCOSE 84 MG/DL (70-104); SODIUM 142 MMOL/L (135-145); TOTAL CARBON DIOXIDE 26.8 MMOL/L (24-32); TOTAL PROTEIN 5.8 G/DL (6.4-8.2); eGFR > 90 ML/MIN
[2020-12-12 08:39] LABS: HEMATOCRIT 29.9 % (35.0-45.0); HEMOGLOBIN 9.2 g/dl (12.0-16.0); MEAN CORPUSCULAR HEMOGLOBIN 19.3 PG (27.0-31.0); MEAN CORPUSCULAR HGB CONC 30.7 g/dL (33.0-36.5); MEAN CORPUSCULAR VOLUME 62.9 FL (78-98); MEAN PLATELET VOLUME 8.7 FL (7.4-10.4); PLATELET COUNT 288 X10'3 (140-440); RED BLOOD COUNT 4.75 X10'6 (4.20-5.60); RED CELL DISTRIBUTION WIDTH 34.4 % (11.5-14.5); WHITE BLOOD COUNT 7.1 X10'3 (4.5-11.0)
[2020-12-12 08:41] LABS: BASOPHILS # (AUTO) 0.1 X10'3 (0-0.2); BASOPHILS % (AUTO) 1.6 % (0-1); EOSINOPHILS # (AUTO) 0.2 X10'3 (0-0.9); EOSINOPHILS % (AUTO) 2.6 % (0-6); LYMPHOCYTES # (AUTO) 2.4 X10'3 (1.1-4.8); LYMPHOCYTES % (AUTO) 37.7 % (21-51); MONOCYTES # (AUTO) 0.5 X10'3 (0-0.9); MONOCYTES % (AUTO) 7.5 % (2-12); NEUTROPHILS # (AUTO) 3.2 X10'3 (1.8-7.7); NEUTROPHILS % (AUTO) 50.6 % (42-75)
[2020-12-12 08:43] LABS: ANISOCYTOSIS 3+; MICROCYTOSIS 2+; PLATELET ESTIMATE NORMAL
[2020-12-12 08:44] LABS: ELLIPTOCYTES 1+; SCHISTOCYTES 1+
[2020-12-12 11:00] VITALS: BP 113/56
--- NOTE | 2020-12-12 16:42 | NUR ---
promotional table spacer PAGER ID: [phone] MESSAGE: Pt. Barclay D: [id number]. pt has been evaluated by the mental tigist marketing sales representative and does not meet criteria for 5150 hold, Do you still want to discharge the patient Angie, [phone]
--- NOTE | 2020-12-12 16:42 | NUR ---
Patient was evaluated by the mental health senior safety management consultant, he stated that patient does not meet criteria for a 5150, and patient can utilized emergency housing with [facility]. I spoke with Madonna and Dr. Da Silva. Both stated it is Ok to discharge patient. Patient IV taken out.
--- NOTE | 2020-12-12 17:08 | NUR ---
PAGER ID: [phone] MESSAGE: [facility] [phone] Re: [id number] Deny please call re: [facility]
--- NOTE | 2020-12-12 17:24 | NUR ---
PAGER ID: [phone] MESSAGE: [facility] [phone] Re: Deny ShuklaB Per [facility] won't take this late can we discharge tomorrow?
--- NOTE | 2020-12-12 17:31 | NUR ---
PAGER ID: [phone] MESSAGE: [facility] [phone] Re: [id number] Deny can we at least DC sitter?
[2020-12-12 20:00] VITALS: BP 154/67
[2020-12-12] MEDS: risperiDONE 0.5mg tablet PO SCH (21:32)
[2020-12-12] MEDS: HYDROcodone/acetaminophen 5mg/325mg tablet PO PRN (21:46)
[2020-12-13] VITALS: BP 125/63
[2020-12-13] MEDS: dextrose 5%-1/2 normal saline 1,000 ML IV SCH (01:37)
[2020-12-13] MEDS: HYDROcodone/acetaminophen 5mg/325mg tablet PO PRN ×2 (04:45→09:19)
--- NOTE | 2020-12-13 06:30 | NUR ---
Problems reprioritized. Patient report given, questions answered & plan of care reviewed with KEMI Lopes .
[2020-12-13] MEDS ORDERED: thiamine 100mg tablet PO SCH (08:00)
[2020-12-13 08:01] VITALS: BP 99/52
[2020-12-13] MEDS: folic acid 1mg tablet PO SCH (08:24)
[2020-12-13] MEDS: pantoprazole 40mg Tablet.DR PO SCH (08:24)
[2020-12-13] MEDS: docusate sod 100mg capsule PO SCH (08:25)
[2020-12-13] MEDS: ferrous sulfate 325mg tablet PO SCH (08:25)
[2020-12-13] MEDS: ascorbic acid 500mg tablet PO SCH (08:26)
[2020-12-13] MEDS: heparin, porcine 5000 units/ml vial SQ SCH (08:27)
--- NOTE | 2020-12-13 09:55 | NUR ---
Patient stable and appropriate for discharge to the [facility] via taxi cab. All belongings gathered and taken from room. No new prescriptions. All discharge instructions and education given and reviewed with patient, all questions answered.
[2020-12-22] MEDS ORDERED: RISP3TAB11 PO (20:46)
[2020-12-22] MEDS ORDERED: BENZ0.5T43 PO (20:46)
== END 2020-12-13 09:51 | disposition home or self-care (01) | DRG 394 ==
LOC: ER 11:10 → ED HOLD 20:50 → SUR 3N 12-09 03:10
PROVIDERS: ADMIT Family Medicine; ATTEND Family Medicine
PROC: 30233N1 Transfusion of Nonautologous Red Blood Cells into Peripheral Vein, Percutaneous Approach (ICD-10-PCS; principal; 2020-12-08)
DX: T18.5XXA Foreign body in anus and rectum, initial encounter (principal); R45.851 Suicidal ideations; F20.9 Schizophrenia, unspecified; M54.50 Low back pain, unspecified; K21.9 Gastro-esophageal reflux disease without esophagitis; D63.8 Anemia in other chronic diseases classified elsewhere; F15.129 Other stimulant abuse with intoxication, unspecified; F10.129 Alcohol abuse with intoxication, unspecified; F17.210 Nicotine dependence, cigarettes, uncomplicated; G89.4 Chronic pain syndrome; Y90.9 Presence of alcohol in blood, level not specified; F31.9 Bipolar disorder, unspecified; X58.XXXA Exposure to other specified factors, initial encounter; Y93.89 Activity, other specified; Z59.00 Homelessness unspecified; Z79.899 Other long term (current) drug therapy; Y92.89 Other specified places as the place of occurrence of the external cause; Y99.8 Other external cause status
CPT/HCPCS: 36415; 36430; 74018; 80053; 80061; 80305; 80320; 81003; 81025; 82948; 83735; 83880; 84100; 84443; 85008; 85025; 85027; 85610; 85730; 86885; 86900; 86901; 86920; 96374; 99285; G0378; J1644; J1885; J2060; J3411; J3490; P9016; Q0163

== ENCOUNTER 2020-12-19 15:12 | Emergency (ER) | payer MEDICARE ==
[~2020-12-19] VITALS: Ht 157.5 cm; Wt 68.9 kg
[2020-12-19] MEDS ORDERED: normal saline 1000ML IV soln IVB ONE (17:00)
[2020-12-19 18:20] LABS: BASOPHILS # (AUTO) 0.1 X10'3 (0-0.2); EOSINOPHILS # (AUTO) 0.2 X10'3 (0-0.9); LYMPHOCYTES # (AUTO) 2.7 X10'3 (1.1-4.8); MONOCYTES # (AUTO) 0.5 X10'3 (0-0.9); WHITE BLOOD COUNT 8.2 X10'3 (4.5-11.0)
[2020-12-19 18:22] LABS: BASOPHILS % (AUTO) 1.8 % (0-1); EOSINOPHILS % (AUTO) 2.7 % (0-6); HEMATOCRIT 31.4 % (35.0-45.0); HEMOGLOBIN 9.6 g/dl (12.0-16.0); LYMPHOCYTES % (AUTO) 32.8 % (21-51); MEAN CORPUSCULAR HEMOGLOBIN 19.5 PG (27.0-31.0); MEAN CORPUSCULAR HGB CONC 30.4 g/dL (33.0-36.5); MEAN CORPUSCULAR VOLUME 64.2 FL (78-98); MONOCYTES % (AUTO) 5.7 % (2-12); NEUTROPHILS # (AUTO) 4.7 X10'3 (1.8-7.7); PLATELET COUNT 219 X10'3 (140-440); RED BLOOD COUNT 4.89 X10'6 (4.20-5.60); RED CELL DISTRIBUTION WIDTH 37.2 % (11.5-14.5)
[2020-12-19 18:29] LABS: ALANINE AMINOTRANSFERASE 49 U/L (12-78); ALBUMIN 3.4 G/DL (3.4-5.0); ALBUMIN/GLOBULIN RATIO 0.8 (1.1-1.5); ALKALINE PHOSPHATASE 68 IU/L (46-116); ANION GAP 11 (8-16); ASPARTATE AMINO TRANSFERASE 25 U/L (10-37); BILIRUBIN,TOTAL 0.5 MG/DL (0.1-1.0); BLOOD UREA NITROGEN 8 MG/DL (7-18); BUN/CREATININE RATIO 12.3 (6.6-38.0); CALCIUM 8.3 MG/DL (8.5-10.1); CHLORIDE 106 MMOL/L (99-107); CREATININE 0.65 MG/DL (0.40-0.90); GLUCOSE 77 MG/DL (70-104); SODIUM 142 MMOL/L (135-145); TOTAL CARBON DIOXIDE 24.9 MMOL/L (24-32); TOTAL PROTEIN 7.7 G/DL (6.4-8.2); eGFR > 90 ML/MIN
[2020-12-19 18:39] LABS: ETHANOL 0.119 GM/DL (0.0-0.010)
[2020-12-19 18:42] LABS: ACETAMINOPHEN < 2.0 UG/ML (10-30)
[2020-12-19 18:57] LABS: URINE HCG NEGATIVE (NEG)
[2020-12-19 19:06] LABS: URINE AMPHETAMINE SCREEN POSITIVE (Neg); URINE BARBITUATE SCREEN NEGATIVE (Neg); URINE BENZODIAZEPINES SCREEN NEGATIVE (Neg); URINE CANNABINOID SCREEN NEGATIVE (Neg); URINE COCAINE SCREEN NEGATIVE (Neg); URINE METHADONE SCREEN NEGATIVE (Neg); URINE OPIATE SCREEN NEGATIVE (Neg); URINE PHENCYCLIDINE SCREEN NEGATIVE (Neg)
[2020-12-19 19:07] LABS: ANISOCYTOSIS 3+; MICROCYTOSIS 2+; PLATELET ESTIMATE NORMAL
[2020-12-19 19:08] LABS: LARGE PLATELETS FEW; SCHISTOCYTES FEW
[2020-12-19 19:09] LABS: ELLIPTOCYTES FEW
[2020-12-19 22:32] VITALS: BP 138/76
[2020-12-22] MEDS ORDERED: BENZ0.5T43 PO (20:46)
[2020-12-22] MEDS ORDERED: RISP3TAB11 PO (20:46)
[2021-01-04] MEDS ORDERED: TRAM50TA2 PO (13:15)
== END 2020-12-19 22:34 | disposition home or self-care (01) ==
LOC: ER 15:12
DX: F10.129 Alcohol abuse with intoxication, unspecified (principal); F15.10 Other stimulant abuse, uncomplicated; K21.9 Gastro-esophageal reflux disease without esophagitis; G89.29 Other chronic pain; Z86.2 Personal history of diseases of the blood and blood-forming organs and certain disorders involving the immune mechanism; Z72.89 Other problems related to lifestyle; Z79.899 Other long term (current) drug therapy; Y90.5 Blood alcohol level of 100-119 mg/100 ml
CPT/HCPCS: 36415; 71045; 80053; 80305; 80320; 80329; 81025; 84443; 85008; 85025; 93005; 96360; 99285; J7030

== ENCOUNTER 2020-12-20 13:55 | Emergency (ER) | payer MEDICARE ==
[~2020-12-20] VITALS: Ht 157.5 cm; Wt 68.9 kg
[2020-12-20 14:28] VITALS: BP 127/90
[2020-12-20] MEDS ORDERED: lactulose 20gm/30ml cup PO ONE (15:05)
[2020-12-22] MEDS ORDERED: RISP3TAB11 PO (20:46)
[2020-12-22] MEDS ORDERED: BENZ0.5T43 PO (20:46)
[2021-01-04] MEDS ORDERED: TRAM50TA2 PO (13:15)
== END 2020-12-20 15:13 ==
LOC: ER 13:56
DX: Z13.89 Encounter for screening for other disorder (principal); K21.9 Gastro-esophageal reflux disease without esophagitis; G89.29 Other chronic pain; F32.9 Major depressive disorder, single episode, unspecified; F20.9 Schizophrenia, unspecified; F15.90 Other stimulant use, unspecified, uncomplicated; Z72.89 Other problems related to lifestyle; Z79.899 Other long term (current) drug therapy
CPT/HCPCS: 72170; 99283

== ENCOUNTER 2021-01-13 09:27 | Emergency (ER) | payer MEDICARE, MEDICAID ==
[~2021-01-13] VITALS: Ht 157.5 cm; Wt 63.6 kg
[~2021-01-13 09:27] MED LIST changes: +BENZ1TAB90 PO; -FERR325T28 PO; +HYDR-3686 PO; +HYDR500C2 PO; +NICO-907 BC; -PANT40SU2 PO; +RISP3TAB11 PO; -RISP3TAB63 PO; +TRAZ-251 PO; -VITC500T PO
[2021-01-13 09:36] VITALS: BP 159/105
[2021-01-13] MEDS ORDERED: acetaminophen 325mg tablet PO ONE (10:10)
== END 2021-01-13 10:56 | disposition home or self-care (01) ==
LOC: ER 09:28
DX: M79.604 Pain in right leg (principal); K21.9 Gastro-esophageal reflux disease without esophagitis; G89.29 Other chronic pain; F32.9 Major depressive disorder, single episode, unspecified; F20.9 Schizophrenia, unspecified; F17.200 Nicotine dependence, unspecified, uncomplicated; F15.90 Other stimulant use, unspecified, uncomplicated; Z86.2 Personal history of diseases of the blood and blood-forming organs and certain disorders involving the immune mechanism; Z72.89 Other problems related to lifestyle; Z59.00 Homelessness unspecified; Z88.0 Allergy status to penicillin; Z88.5 Allergy status to narcotic agent; Z79.899 Other long term (current) drug therapy
CPT/HCPCS: 99282

== ENCOUNTER 2021-01-15 01:08 | Emergency (ER) | payer MEDICARE, MEDICAID ==
[~2021-01-15] VITALS: Ht 154.9 cm; Wt 68.2 kg
[2021-01-15 01:11] VITALS: BP 123/88
== END 2021-01-15 01:30 | disposition home or self-care (01) ==
LOC: ER 01:09
DX: R06.02 Shortness of breath (principal); M79.674 Pain in right toe(s); G89.29 Other chronic pain; K21.9 Gastro-esophageal reflux disease without esophagitis; F15.90 Other stimulant use, unspecified, uncomplicated; Z86.2 Personal history of diseases of the blood and blood-forming organs and certain disorders involving the immune mechanism; Z59.00 Homelessness unspecified; Z88.0 Allergy status to penicillin; Z88.8 Allergy status to other drugs, medicaments and biological substances; Z79.899 Other long term (current) drug therapy
CPT/HCPCS: 99283

== ENCOUNTER 2021-01-15 14:47 | Emergency (ER) | payer MEDICARE, MEDICAID | END 2021-01-15 20:02 | disposition left against medical advice (07) | LOC: ER 14:48 | DX: Z53.21 Procedure and treatment not carried out due to patient leaving prior to being seen by health care provider (principal) ==

== ENCOUNTER 2021-01-20 13:24 | Emergency (ER) | payer MEDICARE, MEDICAID ==
[~2021-01-20] VITALS: Ht 157.5 cm; Wt 72.7 kg
[2021-01-20 13:34] VITALS: BP 95/76
== END 2021-01-20 13:58 ==
LOC: ER 13:24
DX: S80.812A Abrasion, left lower leg, initial encounter (principal); F15.10 Other stimulant abuse, uncomplicated; K21.9 Gastro-esophageal reflux disease without esophagitis; F32.9 Major depressive disorder, single episode, unspecified; F20.9 Schizophrenia, unspecified; D64.9 Anemia, unspecified; G89.29 Other chronic pain; M54.9 Dorsalgia, unspecified; Z02.89 Encounter for other administrative examinations; Z59.00 Homelessness unspecified; X58.XXXA Exposure to other specified factors, initial encounter; Y93.89 Activity, other specified; Y92.89 Other specified places as the place of occurrence of the external cause; Y99.8 Other external cause status; F17.210 Nicotine dependence, cigarettes, uncomplicated
CPT/HCPCS: 99283

== ENCOUNTER 2021-01-21 07:54 | Emergency (ER) | payer MEDICARE, MEDICAID ==
[~2021-01-21] VITALS: Ht 157.5 cm; Wt 63.6 kg
[2021-01-21 08:00] VITALS: BP 145/97
[2021-01-21] MEDS ORDERED: acetaminophen 325mg tablet PO ONE (08:20)
[2021-01-21] MEDS ORDERED: ketorolac trometh. 30mg/ml inj. IM ONE (08:20)
== END 2021-01-21 09:05 | disposition home or self-care (01) ==
LOC: ER 07:55
DX: G89.29 Other chronic pain (principal); M79.604 Pain in right leg; R53.83 Other fatigue; R40.0 Somnolence; K21.9 Gastro-esophageal reflux disease without esophagitis; F15.90 Other stimulant use, unspecified, uncomplicated; Z72.89 Other problems related to lifestyle; Z59.00 Homelessness unspecified; Z88.0 Allergy status to penicillin; Z88.8 Allergy status to other drugs, medicaments and biological substances; Z79.899 Other long term (current) drug therapy
CPT/HCPCS: 96372; 99283; J1885

== ENCOUNTER 2021-01-21 18:24 | Emergency (ER) | payer MEDICARE, MEDICAID | END 2021-01-21 20:57 | disposition left against medical advice (07) | LOC: ER 18:25 | DX: Z53.21 Procedure and treatment not carried out due to patient leaving prior to being seen by health care provider (principal) ==

== ENCOUNTER 2021-02-10 18:00 | Emergency (ER) | payer MEDICARE, MEDICAID ==
[~2021-02-10] VITALS: Ht 157.5 cm; Wt 63.6 kg
[2021-02-10 18:03] VITALS: BP 115/79
== END 2021-02-10 22:20 | disposition home or self-care (01) ==
LOC: ER 18:00
DX: F10.129 Alcohol abuse with intoxication, unspecified (principal); K21.9 Gastro-esophageal reflux disease without esophagitis; G89.29 Other chronic pain; F32.9 Major depressive disorder, single episode, unspecified; F20.9 Schizophrenia, unspecified; F17.210 Nicotine dependence, cigarettes, uncomplicated; F15.90 Other stimulant use, unspecified, uncomplicated; Z86.2 Personal history of diseases of the blood and blood-forming organs and certain disorders involving the immune mechanism; Z72.89 Other problems related to lifestyle; Z59.00 Homelessness unspecified; Z88.0 Allergy status to penicillin; Z88.5 Allergy status to narcotic agent; Z79.899 Other long term (current) drug therapy; Y90.0 Blood alcohol level of less than 20 mg/100 ml
CPT/HCPCS: 36415; 70450; 71045; 80320; 82948; 99285

== ENCOUNTER 2021-02-13 09:05 | Emergency (ER) | payer MEDICAID, MEDICARE ==
[~2021-02-13] VITALS: Ht 157.5 cm; Wt 61.4 kg
[2021-02-13 09:43] VITALS: BP 128/88
== END 2021-02-13 14:54 | disposition left against medical advice (07) ==
LOC: ER 09:05
DX: M79.604 Pain in right leg (principal); M79.605 Pain in left leg; R45.851 Suicidal ideations; K21.9 Gastro-esophageal reflux disease without esophagitis; G89.29 Other chronic pain; F15.90 Other stimulant use, unspecified, uncomplicated; Z72.89 Other problems related to lifestyle; Z59.00 Homelessness unspecified
CPT/HCPCS: 99281

== ENCOUNTER 2021-02-14 09:56 | Emergency (ER) | payer MEDICAID, MEDICARE ==
[~2021-02-14] VITALS: Ht 160 cm; Wt 59.1 kg
[2021-02-14] MEDS ORDERED: ketorolac trometh inj. 60 MG/2 ML VIAL IM ONE (10:20)
== END 2021-02-14 11:30 | disposition home or self-care (01) ==
LOC: ER 09:57
DX: M79.604 Pain in right leg (principal); F32.9 Major depressive disorder, single episode, unspecified; K21.9 Gastro-esophageal reflux disease without esophagitis; G89.29 Other chronic pain; F20.9 Schizophrenia, unspecified; F15.90 Other stimulant use, unspecified, uncomplicated; Z72.89 Other problems related to lifestyle; Z59.00 Homelessness unspecified; Z88.0 Allergy status to penicillin; Z88.5 Allergy status to narcotic agent; Z79.899 Other long term (current) drug therapy
CPT/HCPCS: 96372; 99283; J1885

== ENCOUNTER 2021-02-17 15:26 | Inpatient (IN) | payer MEDICARE, MEDICAID ==
[~2021-02-17] VITALS: Ht 157.5 cm; Wt 69.5 kg
--- NOTE | 2021-02-17 19:06 | NUR ---
The patient presented to the ER complaining of back pain and wanting a shot. She is making vague suicidal statements and stated she is feeling depressed. She appears distracted by internal stimuli and voices PI that a man has been following her. She has a long history of mental illness, polysubstance abuse and treatment noncompliance. She has a history of being in and out of alf here locally and per the medical record was released from [facility] in 2019. Medical history includes anemia, sickle cell, Chronic pain, schizophrenia, and GERD.
[2021-02-17] MEDS ORDERED: morphine 4 MG/ML inj SYRINge IM ONE (19:20)
[2021-02-17 19:30] LABS: COLOR,URINE YELLOW (Yellow); GLUCOSE, URINE NEGATIVE (Neg); KETONES,URINE NEGATIVE (Neg); LEUKOCYTE ESTERASE ,URINE TRACE (Neg); NITRITES, URINE NEGATIVE (Neg); OCCULT BLOOD,URINE TRACE-INTACT (Neg); PROTEIN,URINE NEGATIVE (Neg)
[2021-02-17 19:32] LABS: URINE HCG NEGATIVE (NEG)
[2021-02-17 19:36] LABS: UA COLLECTION TYPE VOIDED
[2021-02-17 19:37] LABS: BACTERIA,URINE FEW /HPF (Neg); CLARITY,URINE SLIGHTLY CLOUDY (Clear); RBC,URINE 0-2 /HPF (0-2); SQUAMOUS EPITHELIAL CELL,UR MODERATE /LPF (FEW)
[2021-02-17] MEDS: ondansetron 4mg rapidly disintigrating tab PO ONE ×2 (19:39→19:41)
[2021-02-17 19:43] LABS: URINE AMPHETAMINE SCREEN POSITIVE (Neg); URINE BARBITUATE SCREEN NEGATIVE (Neg); URINE BENZODIAZEPINES SCREEN NEGATIVE (Neg); URINE CANNABINOID SCREEN POSITIVE (Neg); URINE COCAINE SCREEN NEGATIVE (Neg); URINE METHADONE SCREEN NEGATIVE (Neg); URINE OPIATE SCREEN NEGATIVE (Neg); URINE PHENCYCLIDINE SCREEN NEGATIVE (Neg)
--- NOTE | 2021-02-17 19:48 | NUR ---
The patient is ingesting non food items but when asked she stated it was tape. Security called and patient researched. PA made aware. Xray done.
[2021-02-17 20:05] LABS: BASOPHILS % (AUTO) 0.2 % (0-1); EOSINOPHILS # (AUTO) 0.1 X10'3 (0-0.9); EOSINOPHILS % (AUTO) 0.7 % (0-6); HEMATOCRIT 40.9 % (35.0-45.0); HEMOGLOBIN 12.9 g/dl (12.0-16.0); LYMPHOCYTES # (AUTO) 0.9 X10'3 (1.1-4.8); LYMPHOCYTES % (AUTO) 9.6 % (21-51); MEAN CORPUSCULAR HEMOGLOBIN 23.3 PG (27.0-31.0); MEAN CORPUSCULAR HGB CONC 31.5 g/dL (33.0-36.5); MEAN PLATELET VOLUME 9.5 FL (7.4-10.4); MONOCYTES # (AUTO) 0.2 X10'3 (0-0.9); MONOCYTES % (AUTO) 2.2 % (2-12); NEUTROPHILS # (AUTO) 7.9 X10'3 (1.8-7.7); NEUTROPHILS % (AUTO) 87.3 % (42-75); PLATELET COUNT 198 X10'3 (140-440); RED BLOOD COUNT 5.53 X10'6 (4.20-5.60); RED CELL DISTRIBUTION WIDTH 24.6 % (11.5-14.5)
[2021-02-17 20:08] LABS: ALANINE AMINOTRANSFERASE 26 U/L (12-78); ALBUMIN 4.1 G/DL (3.4-5.0); ALKALINE PHOSPHATASE 75 IU/L (46-116); ANION GAP 11 (8-16); ASPARTATE AMINO TRANSFERASE 26 U/L (10-37); BILIRUBIN,TOTAL 0.9 MG/DL (0.1-1.0); BLOOD UREA NITROGEN 10 MG/DL (7-18); BUN/CREATININE RATIO 12.7 (6.6-38.0); CHLORIDE 101 MMOL/L (99-107); CREATININE 0.79 MG/DL (0.40-0.90); GLUCOSE 84 MG/DL (70-104); POTASSIUM 4.4 MMOL/L (3.5-5.1); SODIUM 137 MMOL/L (135-145); TOTAL CARBON DIOXIDE 25.1 MMOL/L (24-32); TOTAL PROTEIN 8.4 G/DL (6.4-8.2); eGFR > 90 ML/MIN
[2021-02-17] MEDS ORDERED: risperiDONE 2mg tablet PO ONE (20:15)
[2021-02-17] MEDS ORDERED: risperiDONE 0.5mg tablet PO ONE (20:15)
[2021-02-17 20:17] LABS: ETHANOL < 0.010 GM/DL (0.0-0.010)
[2021-02-17 20:24] LABS: ANISOCYTOSIS 3+; MICROCYTOSIS 1+; PLATELET ESTIMATE NORMAL
[2021-02-17 20:25] LABS: ELLIPTOCYTES FEW; LARGE PLATELETS FEW; POLYCHROMASIA FEW
[2021-02-17 20:27] LABS: ACETAMINOPHEN < 2.0 UG/ML (10-30)
[2021-02-17] MEDS ORDERED: acetaminophen 325mg tablet PO ONE (20:35)
--- NOTE | 2021-02-17 22:17 | NUR ---
The patient appears to be sleeping
[2021-02-17] MEDS ORDERED: haloperidol lactate 5mg/ml inj IM ONE (23:50)
[2021-02-17] MEDS ORDERED: diphenhydrAMINE 50 mg/ml inj IM ONE (23:50)
[2021-02-17] MEDS ORDERED: LORazepam 2 mg/ml vial IM ONE (23:50)
--- NOTE | 2021-02-17 23:59 | NUR ---
The patient is yelling out from her bed making numerous and repeated requests. She is asking for IM medications. MD made aware and the patient was given IM medications to which she thanked staff.
--- NOTE | 2021-02-18 01:09 | NUR ---
The patient appears to be sleeping
--- NOTE | 2021-02-18 02:36 | NUR ---
The patient appears to be sleeping
--- NOTE | 2021-02-18 04:02 | NUR ---
The patient appears to be sleeping
--- NOTE | 2021-02-18 07:00 | NUR ---
Patient sleeping comfortably in supine position, respirations even and unlabored.
--- NOTE | 2021-02-18 08:58 | NUR ---
Pt appears to be sleeping comfortably, respirations even and unlabored.
--- NOTE | 2021-02-18 09:10 | NUR ---
Pt awake eating her breakfast. Pt presents disorganized with word salad. Pt talked about people being after her, but doesn't make sense. When asked if she is afraid pt says "yes" then rambles. Pt was cooperative with physical assessment. Unsure of last BM.
--- NOTE | 2021-02-18 10:05 | NUR ---
Pt woke to eat her breakfast. [facility] at bedside.
--- NOTE | 2021-02-18 12:01 | NUR ---
Patient appears to be sleeping comfortably, respirations even and unlabored.
--- NOTE | 2021-02-18 14:04 | NUR ---
Pt sleeping comfortably on right side.
--- NOTE | 2021-02-18 16:03 | NUR ---
Pt appears to be sleeping, no distress noted. Respirations even and unlabored.
[2021-02-18] MEDS ORDERED: HYDR-3686 PO (18:29)
[2021-02-18] MEDS ORDERED: BENZ1TAB7 PO (18:29)
[2021-02-18] MEDS ORDERED: RISP3TAB11 PO (18:30)
[2021-02-18] MEDS ORDERED: TRAZ-256 PO (18:31)
[2021-02-18] MEDS ORDERED: acetaminophen 325mg tablet PO ONE (18:35)
--- NOTE | 2021-02-18 19:47 | NUR ---
pt awoke for dinner, was friendly and cooperative. pt given tylenol for back pain.
[2021-02-18] MEDS: benztropine 1mg tablet PO SCH (20:51)
[2021-02-18] MEDS: risperiDONE 0.5mg tablet PO SCH (20:51)
[2021-02-18] MEDS: traZODone 50mg tablet PO SCH (20:51)
--- NOTE | 2021-02-18 22:00 | NUR ---
pt appears to be sleeping, rr unlabored.
--- NOTE | 2021-02-18 23:57 | NUR ---
pt appears to be sleeping, rr unlabored.
--- NOTE | 2021-02-19 03:17 | NUR ---
pt continues to sleep. no s/s of distress noted.
--- NOTE | 2021-02-19 07:00 | NUR ---
Pt awake asking for crackers.
[2021-02-19] MEDS: benztropine 1mg tablet PO SCH ×2 (08:26→20:26)
[2021-02-19] MEDS ORDERED: acetaminophen 325mg tablet PO PRN (08:35)
--- NOTE | 2021-02-19 08:44 | NUR ---
One on one with patient to assess mental health symptoms. Pt was pleasant and cooperative. Pt c/o of right leg and lower back pain. Pt continues to be mildly disorganized in her speech. When asked how she was feeling "feeling like pain...just like depressed." "I want to see my doctor, there is someting going on... and my meds." "I wanna hurt myself (pt laughs), and someone..no myself." Pt with a flat affect. Recieved order for Tylenol PRN and will repeat KUB as previous xray indicated 2 cm metallic foreign body. Addendum: 02/19/21 at 1125 by YURIY Pt being recommended for conservatorship.
--- NOTE | 2021-02-19 10:34 | NUR ---
Pt was administered Tylenol for low back and left leg pain per order from Dodie Stahl. Pt took medication, but keeps perseverating on "I want my shot." "I need my shot." Pt says she wants a "Toradol shot then talks about a "Tramadol shot." Pt states "if I don't get it I need to file a report." Will reassess pt after Tylenol.
--- NOTE | 2021-02-19 12:31 | NUR ---
Pt was sleeping, but is awake now sitting up in bed. Pt requesting "crackers." Lunch should be here soon.
--- NOTE | 2021-02-19 14:30 | NUR ---
Pt resting comfortably, unlabored respirations.
[2021-02-19] MEDS: traMADol 50MG tablet PO PRN (15:58)
--- NOTE | 2021-02-19 15:59 | NUR ---
Patient requested PRN Tramadol for 9/10 right leg and low back pain. Will continue to monitor.
--- NOTE | 2021-02-19 16:15 | NUR ---
Reassessed Tramadol - pt resting in bed comfortably, no distress noted.
--- NOTE | 2021-02-19 17:55 | NUR ---
Note brayden in ED - 02/19/21 at 1756 by YURIY Pt ambulated to restroom with FWW. School Teacher was ERNESTINA. Pt gait steady, pt requires some redirection as her attention is easily distracted.
[2021-02-19] MEDS: traZODone 50mg tablet PO SCH (20:27)
[2021-02-19] MEDS: risperiDONE 0.5mg tablet PO SCH (20:28)
[2021-02-19] MEDS: hydrOXYzine 25 MG tablet PO PRN (20:28)
--- NOTE | 2021-02-19 20:30 | NUR ---
Patient calm and cooperative, patient took all night medications and ate 100 of her dinner. Patient received snack and continues to rest comfortably.
--- NOTE | 2021-02-19 22:33 | NUR ---
Patient repetitive in asking for snacks and had to be redirected. Patient is now sleeping with unlabored resperirations.
--- NOTE | 2021-02-20 00:30 | NUR ---
Patient went to restroom and came back mumbling to herself. Patient then became agitated and started throwing food and cups. Nurse talked to patient who complained of pain in her leg. Patient was offered tylenol and atarx. Patient kept asking for Im form of tramadol which she had already been told earlier dr. thapa had refused to prescribe her. When patient was informed she couldent have the shot she became upset and refused all other medications. Patient continues to respond to internal stimuli.
--- NOTE | 2021-02-20 02:30 | NUR ---
Patient observed arguing with internal voices. Patient went to the restroom and returned to bed.
[2021-02-20] MEDS: traMADol 50MG tablet PO PRN ×2 (03:49→15:28)
--- NOTE | 2021-02-20 04:33 | NUR ---
Patient requested tramadol po 50mg and a snack. Patient took medication and returned to sleep.
--- NOTE | 2021-02-20 06:41 | NUR ---
Patient asleep breaths are even and unlabored
--- NOTE | 2021-02-20 07:00 | NUR ---
Pt sleeping comfortably, respirations unlabored.
--- NOTE | 2021-02-20 08:10 | NUR ---
Pt sitting up eating breakfast, no complaints. Pt is calm and not requesting medication.
[2021-02-20] MEDS: benztropine 1mg tablet PO SCH ×2 (08:39→20:17)
--- NOTE | 2021-02-20 09:46 | NUR ---
Pt was accepted to [facility].
[2021-02-20 10:00] VITALS: BP 103/69
--- NOTE | 2021-02-20 10:00 | NUR ---
Admit Note Pt admitted from [facility] to [facility] at 1000 on a 5150 for Grave Disability, as she presented confused, thought process is disorganized, tangential, and is eating non edible items. Abdominal x-ray shows three ovoid metallic densities, likely representing ingested foreign body material. Pt has a hx of Schizophrenia and substance use D/O. She has had multiple hospitalizations and [facility], which took [facility] this afternoon. Pt cooperative with admit process. Skin and safety check completed. Belongings inventoried.
[2021-02-20] MEDS ORDERED: magnesium hydroxide 30ml (MOM) UD suspension PO PRN (10:20)
[2021-02-20] MEDS ORDERED: NICOTINE POLACRILEX 2 MG LOZENGE BC PRN (10:20)
[2021-02-20] MEDS ORDERED: acetaminophen 325mg tablet PO PRN ×2 (10:20)
[2021-02-20] MEDS ORDERED: mag hydrox/Alum hydrox/simeth 30ml oral suspension PO PRN (10:20)
[2021-02-20] MEDS ORDERED: loperamide 2mg capsule PO PRN (10:20)
[2021-02-20] MEDS ORDERED: FLU VACC QS2021-22(6MOS UP)/PF 60 MCG/0.5 ML SYRINGE IM ONE (11:35)
[2021-02-20 19:39] VITALS: BP 110/70
[2021-02-20] MEDS: risperiDONE 0.5mg tablet PO SCH (20:17)
[2021-02-20] MEDS: traZODone 50mg tablet PO SCH (20:17)
--- NOTE | 2021-02-21 03:37 | NUR ---
Nursing Progress Note: Legal hold: 5150 Client on voluntary/involuntary status for GD. Report received from nurse Ballard with use of SBAR. Why are they here: Pt admitted from [facility] to [facility] on a 5150 for Grave Disability, as she presented confused, thought process is disorganized, tangential, and is eating non edible items. Abdominal x-ray shows three ovoid metallic densities, likely representing ingested foreign body material. Pt has a hx of Schizophrenia and substance use D/O. She has had multiple hospitalizations and [facility] has referred her for [facility] conservatorship evaluation, which took place this afternoon. Diagnosis/presenting symptoms: Psychosis Assessment What has happened this shift: pt isolated to her room all evening, but will come out when she has needs. Pt is very malodorous and appears dirty. Pt refused shower. Pt requested flu vaccine and received it tonight. Pt is endorsing ah but denies being suicidal. Pt did not make any delusional statements but did not want to converse much. All hs meds taken without issue. S/I, H/I: denies A/VH: endorses Sleep: see sleep assessment ADL's: needs prompting Group attendance: n/a Were meds taken: yes, including flu shot Any med S/E: no Mental Status Exam Appearance: disheveled, malodorous Eye contact: fair Behavior: calm, cooperative Speech: quiet Mood: calm Affect: flat Thought process: disorganized Thought Content: getting needs met Cognition: a/o x3 Insight: poor Judgment: poor Interventions PRN's used: Therapeutic interventions: Maintained a safe and supportive environment, provided clear and simple instructions, provide active listening and positive encouragement, monitored behaviors and needed intervention, and maintained Q 15min safety checks. Restraints/seclusion/emergency medication: N/A Justification of Continued Inpatient Treatment: Patient continues to report psychotic symptoms. Pt requires continued medication adjustment and titration in safe and therapeutic milieu
[2021-02-21] MEDS: benztropine 1mg tablet PO SCH ×2 (07:36→20:17)
[2021-02-21] MEDS: traMADol 50MG tablet PO PRN ×2 (07:39→15:55)
[2021-02-21 08:00] VITALS: BP 107/69
[2021-02-21] MEDS: nicotine 21mg patch - 24 hr TD SCH (08:00)
--- NOTE | 2021-02-21 17:28 | NUR ---
Nursing Progress Note: Legal hold: 5150 Client on voluntary/involuntary status for GD. Report received from nurse Ghosh with use of SBAR. Why are they here: Pt admitted from [facility] to [facility] on a 5150 for Grave Disability, as she presented confused, thought process is disorganized, tangential, and is eating non edible items. Abdominal x-ray shows three ovoid metallic densities, likely representing ingested foreign body material. Pt has a hx of Schizophrenia and substance use D/O. She has had multiple hospitalizations and [facility] has referred her for [facility] evaluation, which took place this afternoon. Diagnosis/presenting symptoms: Psychosis Assessment What has happened this shift: RN received pt. asleep in bed at start of shift. Pt. took awoke for breakfast and took all medications. Pt. requested Tramadol for lower back pain and went back to sleep. 1:1 done at bedside, pt. denies all mental health symptoms and states, Im good. Pt. gives minimal responses to questions during interview. Pt. isolated to her room most of the day. In the afternoon pt. requested another tramadol for chronic low back pain and received 50mg with moderate effect. Pt. observed pacing halls. Pt. had no c/o stomach pain today. S/I, H/I: Denies A/VH: Denies Sleep: Pt. slept 8.25 hrs on NOC shift and napped intermittently during the day. ADL's: Independent with prompting. Group attendance: No Were meds taken: yes Any med S/E: Denies. None observed. Mental Status Exam Appearance: Disheveled wearing green scrub bottoms and waddell T-shirt. Eye contact: fair Behavior: Cooperative, isolates to her room most of the day. Paces hallway. Speech: Minimal Mood: Euthymic Affect: flat Thought process: Linear Thought Content: Circumstantial Cognition: A&Ox4 Insight: poor Judgment: poor Interventions PRN's used: Tramadol 50mg x2 Therapeutic interventions: Maintained a safe and supportive environment, provided clear and simple instructions, provide active listening and positive encouragement, monitored behaviors and needed intervention, and maintained Q 15min safety checks. Restraints/seclusion/emergency medication: N/A Justification of Continued Inpatient Treatment: Patient continues to report psychotic symptoms. Pt requires continued medication adjustment and titration in safe and therapeutic milieu
[2021-02-21 19:42] VITALS: BP 107/66
[2021-02-21] MEDS: traZODone 50mg tablet PO SCH (20:17)
[2021-02-21] MEDS: risperiDONE 0.5mg tablet PO SCH (20:17)
--- NOTE | 2021-02-21 22:31 | NUR ---
Nursing Progress Note: Legal hold: 5150 Client on voluntary/involuntary status for GD. Report received from nurse Ballard with use of SBAR. Why are they here: Pt admitted from [facility] to [facility] on a 5150 for Grave Disability, as she presented confused, thought process is disorganized, tangential, and is eating non edible items. Abdominal x-ray shows three ovoid metallic densities, likely representing ingested foreign body material. Pt has a hx of Schizophrenia and substance use D/O. She has had multiple hospitalizations and [facility], which took [facility] this afternoon. Diagnosis/presenting symptoms: Psychosis Assessment What has happened this shift: Patient was found in bed sleeping at beginning of shift. Patient self isolated in room all shift. Patient asked nurse for tramadol multiple times even after nurse reminded patient it wasn't due until midnight. Patient woke up for snack and ate in her room alone. Patient took all scheduled medications. S/I, H/I: denies A/VH: Denies but appears too be responding to internal stimuli Sleep: see sleep assessment ADL's: needs prompting Group attendance: n/a Were meds taken: yes, including flu shot Any med S/E: no Mental Status Exam Appearance: disheveled, malodorous Eye contact: fair Behavior: calm, cooperative Speech: quiet Mood: calm Affect: flat Thought process: disorganized Thought Content: getting needs met Cognition: a/o x3 Insight: poor Judgment: poor Interventions PRN's used: Therapeutic interventions: Maintained a safe and supportive environment, provided clear and simple instructions, provide active listening and positive encouragement, monitored behaviors and needed intervention, and maintained Q 15min safety checks. Restraints/seclusion/emergency medication: N/A Justification of Continued Inpatient Treatment: Patient continues to report psychotic symptoms. Pt requires continued medication adjustment and titration in safe and therapeutic milieu
[2021-02-22 07:44] VITALS: BP 118/67
[2021-02-22] MEDS: nicotine 21mg patch - 24 hr TD SCH (08:00)
[2021-02-22] MEDS: benztropine 1mg tablet PO SCH ×2 (08:39→20:29)
[2021-02-22] MEDS: traMADol 50MG tablet PO PRN ×2 (08:40→17:00)
[2021-02-22] MEDS: hydrOXYzine 25 MG tablet PO PRN ×2 (09:57→20:30)
--- NOTE | 2021-02-22 10:10 | NUR ---
Pt. attended group today. Each pt. scaled their mood and anxiety level today to practice scaling. We discussed how trauma/emotion remains in your body and how the brain send messages to the amygdala which can cause a flight/fight response. Pt. was in the group, appeared to be enjoying the information but spoke minimally. Overall demeanor was calm and pleasant. Listened intently to peers and this Explosive Specialist but did not wish to join in withe conversation. Twila Moffett, WEB PRODUCTION MANAGER
--- NOTE | 2021-02-22 14:50 | NUR ---
Nursing Progress Note: Legal hold: 5150 Client on voluntary/involuntary status for GD Report received from nurse with use of SBAR: KEMI Ghosh Why are they here: Pt admitted from [facility] to [facility] on a 5150 for Grave Disability, as she presented confused, thought process is disorganized, tangential, and is eating non edible items. Abdominal x-ray shows three ovoid metallic densities, likely representing ingested foreign body material. Pt has a hx of Schizophrenia and substance use D/O. She has had multiple hospitalizations and [facility] has referred her for [facility] evaluation, which took place this afternoon. Diagnosis/presenting symptoms: Psychosis Assessment What has happened this shift: Received pt. sleeping in bed at the beginning of the shift, she awoke and required direction from staff to attend breakfast in the Group Room. Afterwards, pt. retreated to her room and requested PRN Ultram for intermittent back and bilateral leg pain. She continues to perseverate on receiving an Ultram shot though she has been educated by SARITA Delgado that she will continue to oral Ultram. When questioned by this automobile and property underwriter regarding S/I pt. states, "Not now, but I feel like I'm going to do something if I don't get my shot." This was endorsed to SARITA Delgado and no new orders obtained. Pt. does admit to ongoing depression and presents with restlessness. She denies any A/V/GREGG, however is observed to be talking aloud to herself at times. Later in the morning, pt. reported anxiety r/t "hearing noises," PRN Atarax administered with effectiveness. Pt. remains withdrawn throughout the day, she naps at intervals. Pt. denies any current stomach discomfort and bowl sounds are active. Per SARITA Delgado, a F/U KUB is not needed at this time, he believes the coin pt. previously swallowed will pass. S/I, H/I: Passive S/I at times A/VH: Denies, however appears to be internally preoccupied at times AEB talking softly to herself Sleep: Sleep hours are 7.75, and pt. naps during much of the shift ADL's: Requires some direction and encouragement Group attendance: No Were meds taken: Yes Any med S/E: None Mental Status Exam Appearance: Hair and clothing somewhat disheveled r/t laying in bed. Pt. frequently walks around with her pants sagging and must be reminded to pull them up. Eye contact: Fair Behavior: Cooperative, restless, guarded and withdrawn Speech: Soft and responds minimally to direct questions only Mood: Guarded Affect: Constricted Thought process: Poverty of thought with possible thought blocking Thought Content: Possible A/V/GREGG and perseveration regarding desire for an Ultram shot Cognition: A&O X3 Insight: Poor Judgment: Poor Interventions PRN's used: Ultram Therapeutic interventions: Introduced self and established rapport, maintained a safe and supportive environment, ensured contract for safety, provided clear and simple instructions, provided active listening and positive encouragement, monitored for any abdominal pain or discomfort and need for follow-up KUB, and maintained Q15min safety checks. Restraints/seclusion/emergency medication: N/A Justification of Continued Inpatient Treatment: SARITA Traylor, Pt. continues to require a safe and supportive environment. She continues to fail outpatient and he is recommending conservatorship.
[2021-02-22 19:00] VITALS: BP 124/78
[2021-02-22] MEDS: traMADol 50MG tablet PO SCH (20:00)
[2021-02-22] MEDS: traZODone 50mg tablet PO SCH (20:29)
[2021-02-22] MEDS: risperiDONE 0.5mg tablet PO SCH (20:30)
[2021-02-23] MEDS: traMADol 50MG tablet PO SCH ×4 (02:00→20:31)
--- NOTE | 2021-02-23 02:47 | NUR ---
Nursing Progress Note: Legal hold: 5150 Client on voluntary/involuntary status for GD Report received from nurse with use of SBAR: KEMI Garcia Why are they here: Pt admitted from [facility] to [facility] on a 5150 for Grave Disability, as she presented confused, thought process is disorganized, tangential, and is eating non edible items. Abdominal x-ray shows three ovoid metallic densities, likely representing ingested foreign body material. Pt has a hx of Schizophrenia and substance use D/O. She has had multiple hospitalizations and [facility] has referred her for [facility] conservatorship evaluation, which took place this afternoon. Diagnosis/presenting symptoms: Psychosis Assessment What has happened this shift: Patient was found sleeping in bed at beginning of shift. Patient was later observed walking around room without pants on and to be reminded to close door when changing or do it n bathroom. Patient requested Atrax to manage anxiety and jumpiness. Patient left room to participate in snack and then returned. Patient took all night medications without issue. Patient didn't socialize with others and spent rest of shift in her room except for periodically leaving to ask for snacks. S/I, H/I: Passive S/I at times A/VH: Denies, however appears to be internally preoccupied Sleep: See sleep assessment ADL's: Requires some direction and encouragement Group attendance: No Were meds taken: Yes Any med S/E: None Mental Status Exam Appearance: Middle aged women wearing worn sachin shirt and oversized green scrub pants. Eye contact: Fair Behavior: Cooperative, restless, guarded and withdrawn Speech: Soft and responds minimally to direct questions only Mood: Guarded Affect: Constricted Thought process: Poverty of thought with possible thought blocking Thought Content: Possible A/V/GREGG and perseveration regarding desire for an Ultram shot Cognition: A&O X3 Insight: Poor Judgment: Poor Interventions PRN's used: Therapeutic interventions: Introduced self and established rapport, maintained a safe and supportive environment, ensured contract for safety, provided clear and simple instructions, provided active listening and positive encouragement, monitored for any abdominal pain or discomfort and need for follow-up KUB, and maintained Q15min safety checks. Restraints/seclusion/emergency medication: N/A Justification of Continued Inpatient Treatment: Per SARITA Delgado, Pt. continues to require a safe and supportive environment. She continues to fail outpatient and he is recommending conservatorship.
[2021-02-23 08:00] VITALS: BP 103/69
[2021-02-23] MEDS: nicotine 21mg patch - 24 hr TD SCH (08:00)
[2021-02-23] MEDS: benztropine 1mg tablet PO SCH ×2 (09:02→20:29)
--- NOTE | 2021-02-23 14:17 | NUR ---
Nursing Progress Note: Legal hold: 5250 Client on voluntary/involuntary status for GD Report received from nurse with use of SBAR: Cally Meeks RN Why are they here: Pt admitted from [facility] to [facility] on a 5150 for Grave Disability, as she presented confused, thought process is disorganized, tangential, and is eating non edible items. Abdominal x-ray shows three ovoid metallic densities, likely representing ingested foreign body material. Pt has a hx of Schizophrenia and substance use D/O. She has had multiple hospitalizations and [facility] has referred her for [facility] conservatorship evaluation, which took place this afternoon. Diagnosis/presenting symptoms: Psychosis Assessment What has happened this shift: Received pt. sleeping in bed at the beginning of the shift, she awoke and again required direction from staff to attend breakfast in the Group Room. Afterwards, pt. retreated to her room and remained guarded and withdrawn here as is her routine. 1:1 was completed at bedside, pt. denies any S/I or any other MH s/s and appears to be minimizing, she states, "I feel fine." Later pt. was observed to be standing in front of the nurse's station whispering aloud to herself at what appeared to be her reflection in the window. Pt. isolated in her room throughout much of the day, but did attend group with encouragement. Per leather crafter RN, pt's scheduled Ultram was administered early at 0550, therefore her morning dose should be held. This was endorsed to SARITA Delgado and pt's scheduled 0800 dose of Ultram was held, pt. reported understanding. She continues to c/o chronic leg pain intermittently, but did not talk about her desire to obtain a Toradol injection this shift. S/I, H/I: Denies A/VH: Denies, however appears to be internally preoccupied at times AEB talking softly to herself Sleep: Sleep hours are 6 and pt. naps during much of the shift ADL's: Requires some direction and encouragement Group attendance: Yes Were meds taken: Yes Any med S/E: None Mental Status Exam Appearance: Hair and clothing somewhat disheveled r/t laying in bed. Pt. frequently walks around with her pants sagging and must be reminded to pull them up. Eye contact: Fair Behavior: Cooperative, fatigued, guarded and withdrawn Speech: Soft and responds minimally to direct questions only Mood: Guarded Affect: Constricted Thought process: Poverty of thought with possible thought blocking Thought Content: Possible A/V/GREGG Cognition: A&O X3 Insight: Poor Judgment: Poor Interventions PRN's used: None Therapeutic interventions: Maintained a safe and supportive environment, ensured contract for safety, provided clear and simple instructions, provided active listening and positive encouragement, monitored for any abdominal pain or discomfort, encouraged participation on the unit, and maintained Q15min safety checks. Restraints/seclusion/emergency medication: N/A Justification of Continued Inpatient Treatment: SARITA Traylor, Pt. continues to require a safe and supportive environment. She continues to fail outpatient and he is recommending conservatorship.
[2021-02-23] MEDS: hydrOXYzine 25 MG tablet PO PRN (16:59)
[2021-02-23 19:34] VITALS: BP 110/72
[2021-02-23] MEDS: traZODone 50mg tablet PO SCH (20:30)
[2021-02-23] MEDS: risperiDONE 0.5mg tablet PO SCH (20:38)
[2021-02-24] MEDS: traMADol 50MG tablet PO SCH ×4 (02:00→20:06)
--- NOTE | 2021-02-24 02:45 | NUR ---
Nursing Progress Note: Legal hold: 5250 Client on voluntary/involuntary status for GD Report received from nurse with use of SBAR: KEMI Garcia Why are they here: Jeanne is eating non-edible items, e.g. metal objects, confused, disorganized, unable to formulate a visible plan for food, clothing and chcf. Assessment What has happened this shift: Patient was received sleeping in bed at beginning of shift. Patient was later observed pacing around unit. Patient was given nail marshallese to paint nails before snack time. Patient participated in snack and took all medication without complications. Patient kept to herself this shift, spreading her time between her room and pacing the halls. Patient returned to room and went back to bed. S/I, H/I: Denies A/VH: Denies, however appears to be internally preoccupied at times AEB talking softly to herself Sleep: See sleep assessment ADL's: Requires some direction and encouragement Group attendance: Yes Were meds taken: Yes Any med S/E: None Mental Status Exam Appearance: Hair and clothing somewhat disheveled r/t laying in bed. Pt. frequently walks around with her pants sagging and must be reminded to pull them up. Eye contact: Fair Behavior: Cooperative, fatigued, guarded and withdrawn Speech: Soft and responds minimally to direct questions only Mood: Guarded Affect: Constricted Thought process: Poverty of thought with possible thought blocking Thought Content: Possible A/V/GREGG Cognition: A&O X3 Insight: Poor Judgment: Poor Interventions PRN's used: None Therapeutic interventions: Maintained a safe and supportive environment, ensured contract for safety, provided clear and simple instructions, provided active listening and positive encouragement, monitored for any abdominal pain or discomfort, encouraged participation on the unit, and maintained Q15min safety checks. Restraints/seclusion/emergency medication: N/A Justification of Continued Inpatient Treatment: Per SARITA Delgado, Pt. continues to require a safe and supportive environment. She continues to fail outpatient and he is recommending conservatorship.
[2021-02-24 08:00] VITALS: BP 106/61
[2021-02-24] MEDS: nicotine 21mg patch - 24 hr TD SCH (08:00)
[2021-02-24] MEDS: benztropine 1mg tablet PO SCH ×2 (08:15→20:07)
--- NOTE | 2021-02-24 15:12 | NUR ---
Nursing Progress Note: Legal hold: 5250 Client on voluntary/involuntary status for GD Report received from nurse with use of SBAR: Cally Aldana RN Why are they here: Jeanne is eating non-edible items, e.g. metal objects, confused, disorganized, unable to formulate a visible plan for food, clothing and intermediate. Assessment What has happened this shift: Pt was up for breakfast and cooperative with medications. Pt c/o 9/10 back pain, she receives routine Tramadol 50 mg in the morning and it was helpful. Pt again began c/o severe back pain just before lunch. She also receives routine Tramadol at lunch time, it was given and her pain decreased to a moderate level. Pt denied depression, SI/HI/AH/VH. Her focus today was on her back pain and wanting a shot until the pills kick it. Pt reports she spoke with the doctor about it and they are thinking about it. S/I, H/I: Pt denies. A/VH: Pt denies. Sleep: Pt slept 7.25 hours last night per noc shift report. ADL's: Independent. Group attendance: No groups today. Were meds taken: Yes Any med S/E: None noted or reported. Mental Status Exam Appearance: Black woman with short, curly hair and a protuberant belly. Eye contact: Good Behavior: Cooperative, mostly isolative to self. Speech: Clear, soft, minimal Mood: Calm Affect: Blunted Thought process: Linear, some perseveration. Thought Content: Perseverating on pain and wanting a shot for pain. Cognition: A&O X3 Insight: Poor Judgment: Poor Interventions PRN's used: None Therapeutic interventions: 1:1 assessment, therapeutic communication, active listening, medication administration/education/monitoring, encouragement to perform personal hygiene, provided a safe and therapeutic environment, distraction, redirection, positive reinforcement, and Q15 minute safety checks. Restraints/seclusion/emergency medication: N/A Justification of Continued Inpatient Treatment: SARITA Traylor, Pt. continues to require a safe and supportive environment. She continues to fail outpatient and he is recommending conservatorship.
[2021-02-24 19:30] VITALS: BP 112/65
[2021-02-24] MEDS: traZODone 50mg tablet PO SCH (20:07)
[2021-02-24] MEDS: risperiDONE 0.5mg tablet PO SCH (20:07)
[2021-02-25] MEDS: traMADol 50MG tablet PO SCH ×4 (01:47→20:44)
--- NOTE | 2021-02-25 05:06 | NUR ---
Nursing Progress Note: Legal hold: 5250 Client on voluntary/involuntary status for GD Report received from nurse with use of SBAR: KEMI Garcia Why are they here: Pt admitted from [facility] to [facility] on a 5150 for Grave Disability, as she presented confused, thought process is disorganized, tangential, and is eating non edible items. Abdominal x-ray shows three ovoid metallic densities, likely representing ingested foreign body material. Pt has a hx of Schizophrenia and substance use D/O. She has had multiple hospitalizations and [facility] has [facility]; Diagnosis/presenting symptoms: Psychosis Assessment; What happened this shift: pt found in bed wearing T- shirt & underwear; well groomed; easily aroused & cooperative in initial physical assessment; has good eye contact; responses to questions & commands appropriate; took all routine medications; isolates to room most of shift; states she slept well; requested ice water, then reports she plans to go back to sleep
[2021-02-25 07:33] VITALS: BP 114/68
--- NOTE | 2021-02-25 07:37 | NUR ---
Initial: Pt admitted w/ schizophrenia and psychotic behavior per EMR. Currently on Regular diet w/ mostly 100% intake of meals meeting needs. LBM 02/24 w/ PRN bowel care available. No nutrition intervention implemented at this time, will continue to monitor. Recs: 1. Continue Regular diet as tolerated 2. Bowel care PRN 3. Weekly wts Addendum: 02/25/21 at [address] Amended: Links added.
[2021-02-25] MEDS: benztropine 1mg tablet PO SCH ×2 (08:04→20:40)
[2021-02-25] MEDS: hydrOXYzine 25 MG tablet PO PRN (08:41)
[2021-02-25] MEDS ORDERED: ketorolac trometh inj. 60 MG/2 ML VIAL IM ONE (14:25)
[2021-02-25 15:17] LABS: ABSOLUTE RETICS # 87000 /CUMM (23000-93000); BASOPHILS # (AUTO) 0.1 X10'3 (0-0.2); BASOPHILS % (AUTO) 1.2 % (0-1); EOSINOPHILS # (AUTO) 0.3 X10'3 (0-0.9); EOSINOPHILS % (AUTO) 3.4 % (0-6); HEMOGLOBIN 10.5 g/dl (12.0-16.0); LYMPHOCYTES # (AUTO) 2.6 X10'3 (1.1-4.8); LYMPHOCYTES % (AUTO) 32.7 % (21-51); MEAN CORPUSCULAR HGB CONC 31.9 g/dL (33.0-36.5); MEAN PLATELET VOLUME 9.5 FL (7.4-10.4); MONOCYTES # (AUTO) 0.5 X10'3 (0-0.9); MONOCYTES % (AUTO) 6.9 % (2-12); NEUTROPHILS # (AUTO) 4.4 X10'3 (1.8-7.7); NEUTROPHILS % (AUTO) 55.8 % (42-75); PLATELET COUNT 307 X10'3 (140-440); RED BLOOD COUNT 4.58 X10'6 (4.20-5.60); RED CELL DISTRIBUTION WIDTH 21.9 % (11.5-14.5); RETICULOCYTE % (AUTO) 1.9 % (0.5-1.5); WHITE BLOOD COUNT 7.9 X10'3 (4.5-11.0)
[2021-02-25 15:35] LABS: PLATELET ESTIMATE NORMAL
[2021-02-25 15:36] LABS: ANISOCYTOSIS 3+; HYPOCHROMASIA 2+; MICROCYTOSIS 1+; POLYCHROMASIA 1+
[2021-02-25 15:42] LABS: POIKILOCYTOSIS 1+; TARGET CELLS 1+
[2021-02-25 15:47] LABS: ALANINE AMINOTRANSFERASE 22 U/L (12-78); ALBUMIN 3.2 G/DL (3.4-5.0); ALBUMIN/GLOBULIN RATIO 0.8 (1.1-1.5); ALKALINE PHOSPHATASE 56 IU/L (46-116); ANION GAP 8 (8-16); ASPARTATE AMINO TRANSFERASE 18 U/L (10-37); BILIRUBIN,TOTAL 0.2 MG/DL (0.1-1.0); BLOOD UREA NITROGEN 17 MG/DL (7-18); CALCIUM 8.7 MG/DL (8.5-10.1); CHLORIDE 101 MMOL/L (99-107); GLUCOSE 91 MG/DL (70-104); POTASSIUM 4.5 MMOL/L (3.5-5.1); SODIUM 138 MMOL/L (135-145); TOTAL CARBON DIOXIDE 28.6 MMOL/L (24-32); TOTAL PROTEIN 7.1 G/DL (6.4-8.2); eGFR 74 ML/MIN
--- NOTE | 2021-02-25 16:50 | NUR ---
Nursing Progress Note: Jeanne Legal hold: 5250 Client on voluntary/involuntary status for GD Report received from nurse with use of SBAR: Cally Aldana RN Why are they here: Jeanne is eating non-edible items, e.g. metal objects, confused, disorganized, and unable to formulate a visible plan for food, clothing and skilled nursing. Assessment What has happened this shift: Pt. received sleeping tat shift change, medication accepted and 1:21 assessment completed at the bedside. Pt. denies Si, HI, A/VH. Pt. reports she was admitted to get myself together, no discharge plans verbalized. Pt. presents as guarded during assessment. Pt. spent most of the morning in her room. Service Dispatcher was alerted to pt. throwing tray items in her room, and found her to be agitated c/o pain, and requesting a pain shot for R) hip/extremity pain. PRN Atarax given, and Tylenol in addition to routing Tramadol. Provider was notified and requested hospitalist consult. Pt. had labs drawn, and was taken for X-ray of RLE and N.O one time Toradol shot ordered post renal clearance of labs; labs are still pending. Pt. currently OOB and pacing the unit. S/I, H/I: Pt denies. A/VH: Pt denies. Sleep: Pt slept 7.0 hours last night per noc shift report. ADL's: Independent. Group attendance: No groups today. Were meds taken: Yes Any med S/E: None noted or reported. Mental Status Exam Appearance: Black female with very short hair wearing unit scrubs. Eye contact: Good Behavior: Cooperative, agitated. Speech: Clear Mood: Downcast Affect: Flat Thought process: Linear. Thought Content: Perseverating on pain and wanting a shot for pain. Cognition: A&O X3 Insight: Poor Judgment: Poor Interventions PRN's used: Atarax, Tylenol Therapeutic interventions: 1:1 assessment, therapeutic communication, active listening, medication administration/education/monitoring, encouragement to perform personal hygiene, provided a safe and therapeutic environment, distraction, redirection, positive reinforcement, and Q15 minute safety checks. Restraints/seclusion/emergency medication: N/A Justification of Continued Inpatient Treatment: Per SARITA Delgado, Pt. continues to require a safe and supportive environment. She continues to fail outpatient and he is recommending xiomara
[2021-02-25 19:19] VITALS: BP 104/61
[2021-02-25] MEDS: risperiDONE 0.5mg tablet PO SCH (20:40)
[2021-02-25] MEDS: traZODone 50mg tablet PO SCH (20:40)
[2021-02-26] MEDS: traMADol 50MG tablet PO SCH ×4 (02:00→20:47)
--- NOTE | 2021-02-26 04:56 | NUR ---
Nursing Progress Note: Jeanne Legal hold: 5250 Client on involuntary status for GD Report received from Steven RN with use of SBAR Why are they here: Jeanne is eating non-edible items, e.g. metal objects, confused, disorganized, and unable to formulate a visible plan for food, clothing and senior care. Assessment What has happened this shift: Patient walking the unit at the beginning of shift. Pleasant and cooperative with care; compliant with medication. Patient denies SI, HI, A/VH; does not appear to be responding to IS and no apparent delusions reported. Patient participated in HS snack prior to bed; observed sleeping and does not appear to be having difficulty. S/I, H/I: Denies A/VH: Denies Sleep: Refer to sleep assessment ADL's: Independent Group attendance: NA Were meds taken: Yes Any med S/E: None observed or reported Mental Status Exam Appearance: Neat and appropriately dressed Eye contact: Good Behavior: Pleasant and cooperative Speech: Clear, audible, regular rate/rhythm Mood: Restless Affect: Congruent Thought process: Linear Thought Content: Meeting needs Cognition: A&O X3 Insight: Poor Judgment: Poor Interventions PRN's used: None Therapeutic interventions: 1:1 assessment, therapeutic communication, active listening, medication administration/education/monitoring, encouragement to perform personal hygiene, provided a safe and therapeutic environment, distraction, redirection, positive reinforcement, and Q15 minute safety checks. Restraints/seclusion/emergency medication: NA Justification of Continued Inpatient Treatment: Per SARITA Delgado, Pt. continues to require a safe and supportive environment. She continues to fail outpatient and he is recommending conser
[2021-02-26] MEDS: benztropine 1mg tablet PO SCH ×2 (07:56→20:44)
[2021-02-26 08:00] VITALS: BP 92/52
[2021-02-26 08:51] LABS: BASOPHILS % (AUTO) 0.7 % (0-1); EOSINOPHILS # (AUTO) 0.2 X10'3 (0-0.9); EOSINOPHILS % (AUTO) 3.2 % (0-6); LYMPHOCYTES # (AUTO) 2.8 X10'3 (1.1-4.8); LYMPHOCYTES % (AUTO) 38.6 % (21-51); MONOCYTES # (AUTO) 0.6 X10'3 (0-0.9); MONOCYTES % (AUTO) 8.2 % (2-12); NEUTROPHILS # (AUTO) 3.5 X10'3 (1.8-7.7); NEUTROPHILS % (AUTO) 49.3 % (42-75)
[2021-02-26 09:17] LABS: HEMATOCRIT 28.9 % (35.0-45.0); HEMOGLOBIN 9.5 g/dl (12.0-16.0); MEAN PLATELET VOLUME 9.3 FL (7.4-10.4); PLATELET COUNT 243 X10'3 (140-440); RED BLOOD COUNT 4.02 X10'6 (4.20-5.60); WHITE BLOOD COUNT 7.2 X10'3 (4.5-11.0)
[2021-02-26 09:18] LABS: MEAN CORPUSCULAR HEMOGLOBIN 23.5 PG (27.0-31.0); MEAN CORPUSCULAR HGB CONC 32.7 g/dL (33.0-36.5); RED CELL DISTRIBUTION WIDTH 21.3 % (11.5-14.5)
--- NOTE | 2021-02-26 15:07 | NUR ---
Nursing Progress Note: HUAN Legal hold: 5250 Expires 03/09 Client on involuntary status for GD Report received from nurse with use of SBAR: DARRION Harris Why are they here: Huan is eating non-edible items, e.g. metal objects, confused, disorganized, and unable to formulate a visible plan for food, clothing and usp. Assessment What has happened this shift: Received patient sleeping at shift change, no distress noted. Pt was pleasant upon awakening and remained that way all shift. Pt was compliant with medication and care. Pt apologized for her outburst yesterday and offered to clean the wall where she through her tray. Pt denies psychotic symptoms. Pt states shes okay with conservatorship I could do six months, but a year would be crazy. Pt isolated to her room most of the shift. No c/o cough, body aches or fever. S/I, H/I: Pt denies. A/VH: Pt denies. Sleep: Napped after lunch. ADL's: Independent. Group attendance: No scheduled groups today. Were meds taken: Yes, without issue. Any med S/E: None noted or reported. Mental Status Exam Appearance: Black female with very short hair wearing unit scrubs. Eye contact: Good Behavior: Cooperative, isolates to self. Speech: Clear, normal rat/rhythm. Mood: Euthymic Affect: Flat Thought process: Linear. Thought Content: Getting needs met. Cognition: A&O X3 Insight: Poor Judgment: Poor Interventions PRN's used: None Therapeutic interventions: 1:1 assessment, therapeutic communication, active listening, medication administration/education/monitoring, encouragement to perform personal hygiene, provided a safe and therapeutic environment, distraction, redirection, positive reinforcement, and Q15 minute safety checks. Restraints/seclusion/emergency medication: N/A Justification of Continued Inpatient Treatment: Per SARITA Delgado, Pt. continues to require a safe and supportive environment. She continues to fail outpatient and he is recommending for conservatorship.
--- NOTE | 2021-02-26 15:43 | NUR ---
5250 for GD upheld
[2021-02-26 19:00] VITALS: BP 107/68
[2021-02-26] MEDS: risperiDONE 0.5mg tablet PO SCH (20:44)
[2021-02-26] MEDS: traZODone 50mg tablet PO SCH (20:44)
--- NOTE | 2021-02-27 01:36 | NUR ---
Nursing Progress Note: Jeanne Legal hold: 5250 Client on involuntary status for GD Report received from KEMI Garcia with use of SBAR Why are they here: Jeanne is eating non-edible items, e.g. metal objects, confused, disorganized, and unable to formulate a visible plan for food, clothing and intermediate. Assessment What has happened this shift: Patient laying in bed at the beginning of shift. Pleasant and cooperative with care; compliant with medication. Denies SI, HI, A/VH; does not appear to be responding to IS and no apparent delusions reported. Patient ate HS snack and promptly returned to bed; observed sleeping and does not appear to be having difficulty. S/I, H/I: Denies A/VH: Denies Sleep: Refer to sleep assessment ADL's: Independent Group attendance: NA Were meds taken: Yes Any med S/E: None observed or reported Mental Status Exam Appearance: Neat and appropriately dressed Eye contact: Good Behavior: Pleasant and cooperative, tired Speech: Clear, audible, regular rate/rhythm Mood: Fatigued Affect: Congruent Thought process: Linear Thought Content: Meeting needs Cognition: A&O X3 Insight: Poor Judgment: Poor Interventions PRN's used: None Therapeutic interventions: 1:1 assessment, therapeutic communication, active listening, medication administration/education/monitoring, encouragement to perform personal hygiene, provided a safe and therapeutic environment, distraction, redirection, positive reinforcement, and Q15 minute safety checks. Restraints/seclusion/emergency medication: NA Justification of Continued Inpatient Treatment: Per Danny PA, Pt. continues to require a safe and supportive environment. She continues to fail outpatient and he is recommending conser
[2021-02-27] MEDS: traMADol 50MG tablet PO SCH ×4 (02:21→19:51)
[2021-02-27] MEDS: benztropine 1mg tablet PO SCH ×2 (07:22→19:51)
[2021-02-27 07:38] VITALS: BP 119/57
--- NOTE | 2021-02-27 07:39 | NUR ---
Per [facility] Public Guardian, the Temporary Conservatorship paperwork was filed at the courthouse yesterday. PRESTON Allen
[2021-02-27 08:43] LABS: BASOPHILS # (AUTO) 0.1 X10'3 (0-0.2); BASOPHILS % (AUTO) 1.1 % (0-1); EOSINOPHILS # (AUTO) 0.1 X10'3 (0-0.9); EOSINOPHILS % (AUTO) 2.1 % (0-6); HEMATOCRIT 33.6 % (35.0-45.0); HEMOGLOBIN 10.7 g/dl (12.0-16.0); LYMPHOCYTES # (AUTO) 2.7 X10'3 (1.1-4.8); LYMPHOCYTES % (AUTO) 39.9 % (21-51); MEAN CORPUSCULAR HEMOGLOBIN 22.8 PG (27.0-31.0); MEAN CORPUSCULAR HGB CONC 31.7 g/dL (33.0-36.5); MEAN CORPUSCULAR VOLUME 71.8 FL (78-98); MEAN PLATELET VOLUME 9.3 FL (7.4-10.4); MONOCYTES # (AUTO) 0.4 X10'3 (0-0.9); MONOCYTES % (AUTO) 6.5 % (2-12); NEUTROPHILS # (AUTO) 3.4 X10'3 (1.8-7.7); NEUTROPHILS % (AUTO) 50.4 % (42-75); PLATELET COUNT 315 X10'3 (140-440); RED BLOOD COUNT 4.69 X10'6 (4.20-5.60); RED CELL DISTRIBUTION WIDTH 22.2 % (11.5-14.5); WHITE BLOOD COUNT 6.7 X10'3 (4.5-11.0)
--- NOTE | 2021-02-27 12:01 | NUR ---
Nursing Progress Note: HUAN Legal hold: 5250 Expires 03/09 Client on involuntary status for GD Report received from nurse with use of SBAR: DARRION Ghosh Why are they here: Huan is eating non-edible items, e.g. metal objects, confused, disorganized, and unable to formulate a visible plan for food, clothing and retirement. Assessment What has happened this shift: Received patient sleeping at shift change, no distress noted. Pt was pleasant upon awakening and remained that way all shift. Pt was compliant with medication and care. Pt continues to isolate to her room, occasionally out pacing the grajeda. Pt denies all psychotic symptoms. All meals eaten in room r/t Covid outbreak on unit. Encourged hand washing and mask wearing when out of room. S/I, H/I: Pt denies. A/VH: Pt denies. Sleep: 6.75 hours per sleep assessment. Intermittent naps today. ADL's: Independent. Group attendance: No scheduled groups today. Were meds taken: Yes, without issue. Any med S/E: None noted or reported. Mental Status Exam Appearance: Black female with very short hair wearing unit scrubs. Eye contact: Good Behavior: Cooperative, isolates to self. Speech: Clear, normal rat/rhythm. Mood: Euthymic Affect: Flat Thought process: Linear. Thought Content: Getting needs met. Cognition: A&O X3 Insight: Poor Judgment: Poor Interventions PRN's used: None Therapeutic interventions: 1:1 assessment, therapeutic communication, active listening, medication administration/education/monitoring, encouragement to perform personal hygiene, provided a safe and therapeutic environment, distraction, redirection, positive reinforcement, and Q15 minute safety checks. Restraints/seclusion/emergency medication: N/A Justification of Continued Inpatient Treatment: SARITA Traylor, Pt. continues to require a safe and supportive environment. She continues to fail outpatient and he is recommending for conservatorship.
[2021-02-27 19:04] VITALS: BP 106/59
[2021-02-27] MEDS: traZODone 50mg tablet PO SCH (19:51)
[2021-02-27] MEDS: risperiDONE 0.5mg tablet PO SCH (19:51)
--- NOTE | 2021-02-28 00:54 | NUR ---
Nursing Progress Note: Jeanne Legal hold: 5250 Client on involuntary status for GD Report received from KEMI Garcia with use of SBAR Why are they here: Jeanne is eating non-edible items, e.g. metal objects, confused, disorganized, and unable to formulate a visible plan for food, clothing and longterm. Assessment What has happened this shift: Patient quietly laying in bed at the beginning of shift. Pleasant and cooperative with care; compliant with medication. Denies SI, HI, A/VH. Patient report anxiety "not that bad today." Patient reports discharge plan is "to go to [her] mom's house." Patient mostly isolative to room this shift. She came out for HS snack and quickly returned to bed; observed sleeping and does not appear to be having difficulty. S/I, H/I: Denies A/VH: Denies Sleep: Refer to sleep assessment ADL's: Independent Group attendance: NA Were meds taken: Yes Any med S/E: None observed or reported Mental Status Exam Appearance: Neat and appropriately dressed Eye contact: Good Behavior: Pleasant and cooperative, isolative Speech: Clear, audible, regular rate/rhythm Mood: Fatigued Affect: Congruent Thought process: Linear Thought Content: Meeting needs Cognition: A&O X3 Insight: Poor Judgment: Poor Interventions PRN's used: None Therapeutic interventions: 1:1 assessment, therapeutic communication, active listening, medication administration/education/monitoring, encouragement to perform personal hygiene, provided a safe and therapeutic environment, distraction, redirection, positive reinforcement, and Q15 minute safety checks. Restraints/seclusion/emergency medication: NA Justification of Continued Inpatient Treatment: SARITA Traylor, Pt. continues to require a safe and supportive environment. She continues to fail outpatient and he is recommending conser
[2021-02-28] MEDS: traMADol 50MG tablet PO SCH ×4 (02:00→20:16)
[2021-02-28 07:31] VITALS: BP 98/57
[2021-02-28] MEDS: benztropine 1mg tablet PO SCH ×2 (08:16→20:15)
[2021-02-28 09:28] LABS: BASOPHILS # (AUTO) 0.1 X10'3 (0-0.2); BASOPHILS % (AUTO) 0.8 % (0-1); EOSINOPHILS # (AUTO) 0.2 X10'3 (0-0.9); EOSINOPHILS % (AUTO) 2.8 % (0-6); HEMATOCRIT 31.3 % (35.0-45.0); HEMOGLOBIN 9.7 g/dl (12.0-16.0); LYMPHOCYTES # (AUTO) 2.8 X10'3 (1.1-4.8); LYMPHOCYTES % (AUTO) 36.4 % (21-51); MEAN CORPUSCULAR HEMOGLOBIN 22.5 PG (27.0-31.0); MEAN CORPUSCULAR VOLUME 72.4 FL (78-98); MONOCYTES # (AUTO) 0.6 X10'3 (0-0.9); PLATELET COUNT 325 X10'3 (140-440); RED BLOOD COUNT 4.32 X10'6 (4.20-5.60); RED CELL DISTRIBUTION WIDTH 21.5 % (11.5-14.5); WHITE BLOOD COUNT 7.6 X10'3 (4.5-11.0)
[2021-02-28 11:14] LABS: ANISOCYTOSIS 3+; MICROCYTOSIS 1+; PLATELET ESTIMATE NORMAL
[2021-02-28 11:15] LABS: HYPOCHROMASIA 1+; LARGE PLATELETS FEW; TEAR DROP CELLS FEW
[2021-02-28 11:16] LABS: SCHISTOCYTES FEW
--- NOTE | 2021-02-28 11:35 | NUR ---
Nursing Progress Note: HUAN Legal hold: 5250 Expires 03/09 Client on involuntary status for GD Report received from nurse with use of SBAR: DARRION Ghosh Why are they here: Huan is eating non-edible items, e.g. metal objects, confused, disorganized, and unable to formulate a visible plan for food, clothing and mcfp. Assessment What has happened this shift: Received patient sleeping at shift change, no distress noted. Pt was pleasant upon awakening and remained that way all shift. Pt was compliant with medication and care. Pt was more visible on unit, out for snacks and watching T.V. Pt doesnt engage with peers, but is not intrusive. When asked how she feels about her conservatorship pt stated I dont want to take that. When asked how she would provide for food mcfp and clothing I think I could go to my moms house or try another program. Thats all I got. When told she wasnt allowed at her moms pt stated Uh[facility] Pt believes she is med compliant when she is homeless. Pt has no insight into mental health. S/I, H/I: Pt denies both. A/VH: Pt denies both. Sleep: 7.75 hours per sleep assessment. Intermittent naps today. ADL's: Independent. Group attendance: No scheduled groups today r/t Covid outbreak on unit. Were meds taken: Yes, without issue. Any med S/E: None noted or reported. Mental Status Exam Appearance: Black female with very short hair wearing unit scrub bottoms and baptiste t-shirt. Eye contact: Good Behavior: Cooperative, isolates to self. More visible on the unit. Speech: Clear, normal rat/rhythm. Mood: Euthymic Affect: Flat Thought process: Linear. Thought Content: Getting needs met. Cognition: A&O X3 Insight: Poor Judgment: Poor Interventions PRN's used: None Therapeutic interventions: 1:1 assessment, therapeutic communication, active listening, medication administration/education/monitoring, encouragement to perform personal hygiene, provided a safe and therapeutic environment, distraction, redirection, positive reinforcement, and Q15 minute safety checks. Restraints/seclusion/emergency medication: N/A Justification of Continued Inpatient Treatment: Per SARITA Delgado, Pt. continues to require a safe and supportive environment. She continues to fail outpatient and he is recommending for conservatorship.
[2021-02-28 20:00] VITALS: BP 110/68
[2021-02-28] MEDS: traZODone 50mg tablet PO SCH (20:16)
[2021-02-28] MEDS: risperiDONE 0.5mg tablet PO SCH (20:16)
[2021-03-01] MEDS: traMADol 50MG tablet PO SCH ×4 (02:33→20:09)
--- NOTE | 2021-03-01 02:40 | NUR ---
Nursing Progress Note: HUAN Legal hold: 5250 Expires 03/09 Client on involuntary status for GD Report received from nurse with use of SBAR: Jose MAIER Why are they here: Huan is eating non-edible items, e.g. metal objects, confused, disorganized, and unable to formulate a visible plan for food, clothing and retirement. Assessment What has happened this shift: Received patient walking in the hallspt calm, cooperative and friendly with care. Pt denies MH symptoms and states she had a good day and doesnt have any complaints or needs at this time. Pt participated in snacks and took all HS medications and went to lay down in her bed. S/I, H/I: Pt denies both. A/VH: Pt denies both. Sleep: ADL's: Independent. Group attendance: No scheduled groups today r/t Covid outbreak on unit. Were meds taken: Yes, without issue. Any med S/E: None noted or reported. Mental Status Exam Appearance: Black female with very short hair wearing unit scrub bottoms and baptiste t-shirt. Eye contact: Good Behavior: Cooperative, isolates to self. Speech: Clear, normal rat/rhythm. Mood: Euthymic Affect: Flat Thought process: Linear. Thought Content: Getting needs met. Cognition: A&O X3 Insight: Poor Judgment: Poor Interventions PRN's used: None Therapeutic interventions: 1:1 assessment, therapeutic communication, active listening, medication administration/education/monitoring, encouragement to perform personal hygiene, provided a safe and therapeutic environment, distraction, redirection, positive reinforcement, and Q15 minute safety checks. Restraints/seclusion/emergency medication: N/A Justification of Continued Inpatient Treatment: Per SARITA Delgado, Pt. continues to require a safe and supportive environment. She continues to fail outpatient and he is recommending for conservatorship.
[2021-03-01 08:00] VITALS: BP 108/61
[2021-03-01] MEDS: benztropine 1mg tablet PO SCH ×2 (08:27→20:09)
--- NOTE | 2021-03-01 17:36 | NUR ---
Nursing Progress Note: Legal hold: 5250 Expires 03/09 Client on involuntary status for GD Report received from nurse with use of SBAR: DARRION Harris Why are they here: Jeanne is eating non-edible items, e.g. metal objects, confused, disorganized, and unable to formulate a visible plan for food, clothing and residential. Assessment What has happened this shift: Received patient sleeping at shift change. Pt. awoke for breakfast and took all medications. Pt. went back to sleep after breakfast. Pt. slept until mid-morning. COVID test done on pt. and was negative. 1:1 done at bedside, pt. denies all mental health symptoms. Pt. gives minimal information during interview. Pt. isolated to room the rest of the AM. In the afternoon pt. observed watching TV in the community room. Pt. socialized minimally with peers and staff. S/I, H/I: Denies A/VH: Denies Sleep: 7.25 hours per sleep assessment. Intermittently naps during the day ADL's: Independent. Group attendance: No scheduled groups today r/t COVID outbreak on unit. Were meds taken: Yes Any med S/E: None noted or reported. Mental Status Exam Appearance: Disheveled but clean, wearing green scrubs. Eye contact: Good Behavior: Cooperative, isolates to self. Observed watching TV in community room. Speech: Clear, normal rat/rhythm. Mood: Euthymic Affect: Flat Thought process: Linear. Thought Content: Circumstantial. Cognition: A&O X3 Insight: Poor Judgment: Poor Interventions PRN's used: None Therapeutic interventions: 1:1 assessment, therapeutic communication, active listening, medication administration/education/monitoring, encouragement to perform personal hygiene, provided a safe and therapeutic environment, distraction, redirection, positive reinforcement, and Q15 minute safety checks. Restraints/seclusion/emergency medication: N/A Justification of Continued Inpatient Treatment: Per SARITA Delgado, Pt. continues to require a safe and supportive environment. She continues to fail outpatient and he is recommending for conservatorship.
[2021-03-01 19:08] VITALS: BP 101/59
[2021-03-01] MEDS: traZODone 50mg tablet PO SCH (20:09)
[2021-03-01] MEDS: risperiDONE 0.5mg tablet PO SCH (20:09)
--- NOTE | 2021-03-02 01:39 | NUR ---
Nursing Progress Note: Legal hold: 5250 Expires 03/09 Client on involuntary status for GD Report received from nurse with use of SBAR: KEMI Ballard Why are they here: Jeanne is eating non-edible items, e.g. metal objects, confused, disorganized, and unable to formulate a visible plan for food, clothing and skilled nursing. Assessment What has happened this shift: Pt walking around unit at shift change. Pt mostly isolated to self. Patient observed watching TV in community room for an hour and then went to to bed. Patient 1:1 Pt denies A/V H or harm to self. Pt asked to be woken up for snack and her 0200 med pass for Tramadol. Pt got snack at snack time and took m evening meds w/o complications. Pt went back to sleep shortly after. S/I, H/I: Denies A/VH: Denies Sleep: See sleep hours ADL's: Independent. Group attendance: No scheduled group in the evening Were meds taken: Yes Any med S/E: None noted or reported. Mental Status Exam Appearance: Disheveled but clean, wearing green scrubs. Eye contact: Good Behavior: Cooperative, isolates to self. Observed watching TV in community room. Speech: Clear, normal rat/rhythm. Mood: Euthymic Affect: Flat Thought process: Linear. Thought Content: Circumstantial. Cognition: A&O X3 Insight: Poor Judgment: Poor Interventions PRN's used: None Therapeutic interventions: 1:1 assessment, therapeutic communication, active listening, medication administration/education/monitoring, encouragement to perform personal hygiene, provided a safe and therapeutic environment, distraction, redirection, positive reinforcement, and Q15 minute safety checks. Restraints/seclusion/emergency medication: N/A Justification of Continued Inpatient Treatment: SARITA Traylor, Pt. continues to require a safe and supportive environment. She continues to fail outpatient and he is recommending for conservatorship.
[2021-03-02] MEDS: traMADol 50MG tablet PO SCH ×4 (01:59→20:39)
[2021-03-02 08:00] VITALS: BP 96/54
[2021-03-02] MEDS: benztropine 1mg tablet PO SCH ×2 (09:11→20:38)
[2021-03-02] MEDS: hydrOXYzine 25 MG tablet PO PRN (16:58)
--- NOTE | 2021-03-02 17:05 | NUR ---
Nursing Progress Note: Legal hold: 5250 Expires 03/09 Client on involuntary status for GD Report received from: Cos[employer] brake repairer hydraulic using SBAR Why are they here: Jeanne is eating non-edible items, e.g. metal objects, confused, disorganized, and unable to formulate a visible plan for food, clothing and longterm. Assessment What has happened this shift: Received patient while she was requesting morning coffee. Patient states Im doing okay. 1:1 patient assessment completed. Patient reports posterior low back pain that is throbbing, 9on a scale of 1-10. Patient states the Ultram worked well in decreasing her pain. Patient sleeping when pain reassessment was done. Patient self-isolated in her room most of the day, coming out at snack times. At approximately 1655, patient came out of her room and requested Atarax with complaints of "I am having severe anxiety." Atarax 100mg po given at this time. Patient then retreated to the Community Room watching a movie. S/I, H/I: Denies A/VH: Denies Sleep: 7.75 hrs. sleep ADL's: Independent. Group attendance: No Group Meeting held today. Were meds taken: Yes, without hesitation Any med S/E: None noted or reported. Mental Status Exam Appearance: Appears clean, wearing green scrubs. Eye contact: Good Behavior: Cooperative, isolates to self. Speech: Clear, normal rate/rhythm. Mood: Euthymic Affect: Flat Thought process: Linear. Thought Content: Circumstantial. Cognition: A&O X3 Insight: Poor Judgment: Poor Interventions PRN's used: Atarax Therapeutic interventions: 1:1 assessment, therapeutic communication, active listening, medication administration/education/monitoring, encouragement to perform personal hygiene, provided a safe and therapeutic environment, distraction, redirection, positive reinforcement, and Q15 minute safety checks. Restraints/seclusion/emergency medication: N/A Justification of Continued Inpatient Treatment: SARITA Traylor, Pt. continues to require a safe and supportive environment. She continues to fail outpatient and he is recommending for conservatorship.
[2021-03-02 19:00] VITALS: BP 105/56
[2021-03-02] MEDS: traZODone 50mg tablet PO SCH (20:39)
[2021-03-02] MEDS: risperiDONE 0.5mg tablet PO SCH (20:40)
--- NOTE | 2021-03-02 22:18 | NUR ---
Nursing Progress Note: Legal hold: 5250 Expires 03/09 Client on involuntary status for GD Report received from nurse with use of SBAR: KEMI Merrill Why are they here: Jeanne is eating non-edible items, e.g. metal objects, confused, disorganized, and unable to formulate a visible plan for food, clothing and residential. Assessment What has happened this shift: Pt walking around unit with blanket at shift change briefly, before settling into the community room to watch a movie. Patient denies any A/VH or otherwise. Patient stated experiencing severe pain in lower back and was told that she would receive tramadol as scheduled. Pt requested a snack and took evening meds w/o complications. Patient finished movie and went to bed around 2130 S/I, H/I: Denies A/VH: Denies Sleep: See sleep hours ADL's: Independent. Group attendance: No scheduled group in the evening Were meds taken: Yes Any med S/E: None noted or reported. Mental Status Exam Appearance: Disheveled but clean, wearing green scrubs. Eye contact: Good Behavior: Cooperative, isolates to self. Observed watching TV in community room. Speech: Clear, normal rat/rhythm. Mood: Euthymic Affect: Flat Thought process: Linear. Thought Content: Circumstantial. Cognition: A&O X3 Insight: Poor Judgment: Poor Interventions PRN's used: None Therapeutic interventions: 1:1 assessment, therapeutic communication, active listening, medication administration/education/monitoring, encouragement to perform personal hygiene, provided a safe and therapeutic environment, positive reinforcement, and Q15 minute safety checks. Restraints/seclusion/emergency medication: N/A Justification of Continued Inpatient Treatment: Per SARITA Delgado, Pt. continues to require a safe and supportive environment. She continues to fail outpatient and he is recommending for conservatorship.
[2021-03-03] MEDS: traMADol 50MG tablet PO SCH ×4 (02:00→20:07)
--- NOTE | 2021-03-03 04:05 | NUR ---
as of 04003/03/20, this automobile service writer has not administered the patient's scheduled 0200 tramadol. This automobile service writer found patient sleeping soundly and decided to allow patient to sleep, with the expectation that the patient will pursue pain management if necessary. Will hold off on non-administering medication with the anticipation that patient will request medication prior to next scheduled dose at 0800
[2021-03-03 07:03] VITALS: BP 99/60
[2021-03-03] MEDS: benztropine 1mg tablet PO SCH ×2 (08:28→20:06)
--- NOTE | 2021-03-03 17:43 | NUR ---
Nursing Progress Note: Legal hold: 5250 Expires 03/09 Client on involuntary status for GD Report received from DARRION Aguiar with use of SBAR Why are they here: Jeanne is eating non-edible items, e.g. metal objects, confused, disorganized, and unable to formulate a visible plan for food, clothing and residential. Assessment What has happened this shift: Received patient while she was awake in her room. 1:1 Patient Assessment & Interview completed. Patient expressed she has Throbbing back pain, and rated her pain at 9 on a scale of 1-10. Patient reports Ultram does help her pain really well. Follow up from Ultram administration was patient sleeping approximately 45 minutes later. Patient pleasant and cooperative. Ambulates in the grajdea and converses with staff members. Patient slept most of the day and through snack time this afternoon. Snacks given at 1645. Resting in her room at this time. S/I, H/I: Denies A/VH: Denies Sleep: 7.50 hours ADL's: Independent. Group attendance: No Scheduled Group Meeting held today. Were meds taken: Yes, without hesitation. Any med S/E: None noted or reported. Mental Status Exam Appearance: Disheveled but clean, wearing personal clothes at this time. Eye contact: Good Behavior: Cooperative. Isolates to self. Speech: Normal rate & rhythm Mood: Euthymic Affect: Flat Thought process: Linear. Thought Content: Circumstantial. Cognition: A&O X3 Insight: Poor Judgment: Poor Interventions PRN's used: None Therapeutic interventions: 1:1 assessment, therapeutic communication, active listening, medication administration/education/monitoring, encouragement to perform personal hygiene, provided a safe and therapeutic environment, positive reinforcement, and Q15 minute safety checks. Restraints/seclusion/emergency medication: N/A Justification of Continued Inpatient Treatment: SARITA Traylor, Pt. continues to require a safe and supportive environment. She continues to fail outpatient and he is recommending for conservatorship.
[2021-03-03 19:00] VITALS: BP 101/59
[2021-03-03] MEDS: risperiDONE 0.5mg tablet PO SCH (20:06)
[2021-03-03] MEDS: traZODone 50mg tablet PO SCH (20:07)
--- NOTE | 2021-03-04 01:22 | NUR ---
Nursing Progress Note: Legal hold: 5250 Expires 03/09 Client on involuntary status for GD Report received from DARRION Ballard with use of SBAR Why are they here: Jeanne is eating non-edible items, e.g. metal objects, confused, disorganized, and unable to formulate a visible plan for food, clothing and mcc. Assessment What has happened this shift: Patient is in community room after shift change. She watches television intently. Patient denies S/I, H/I, or any hallucinations. Patient is medication compliant. S/I, H/I: Denies. A/VH: Denies. Sleep:Will tally at 0500. ADL's: Independent. Group attendance: No Scheduled Group Meeting held today. Were meds taken: Yes, medication compliant. Any med S/E: None noted or reported. Mental Status Exam Appearance: Clean and appropriately dressed. Eye contact: Good. Behavior: Cooperative. Enjoys movie in community room. Speech: Normal rate & rhythm, and tone. Mood: Euthymic. Affect: Flat. Thought process: Linear. Thought Content: Circumstantial. Cognition: A&O X3. Insight: Poor. Judgment: Poor. Interventions PRN's used: None. Therapeutic interventions: 1:1 assessment, therapeutic communication, active listening, medication administration/education/monitoring, encouragement to perform personal hygiene, provided a safe and therapeutic environment, positive reinforcement, and Q15 minute safety checks. Restraints/seclusion/emergency medication: N/A Justification of Continued Inpatient Treatment: Per SARITA Delgado, Pt. continues to require a safe and supportive environment. She continues to fail outpatient and he is recommending for conservatorship.
[2021-03-04] MEDS: traMADol 50MG tablet PO SCH ×4 (02:00→20:31)
--- NOTE | 2021-03-04 07:11 | NUR ---
Reassessment: Pt continues on Regular diet w/ mostly 100% intake of meals meeting needs. LBM 02/19 w/ PRN bowel care available. No nutrition intervention implemented at this time, will continue to monitor. Recs: 1. Continue Regular diet as tolerated 2. Bowel care PRN 3. Weekly wts Addendum: 03/04/21 at [address] Amended: Links added.
[2021-03-04] MEDS: benztropine 1mg tablet PO SCH ×2 (07:28→20:32)
[2021-03-04 08:00] VITALS: BP_SYST 57
[2021-03-04] MEDS: hydrOXYzine 25 MG tablet PO PRN (17:31)
--- NOTE | 2021-03-04 17:47 | NUR ---
Nursing Progress Note: Legal hold: 5250 Expires 03/09 Client on involuntary status for GD Report received from DARRION Celeste with use of SBAR Why are they here: Jeanne is eating non-edible items, e.g. metal objects, confused, disorganized, and unable to formulate a visible plan for food, clothing and intermediate. Assessment What has happened this shift: Provided 1:1 assessment with therapeutic communication and active listening. Pt c/o pain 11/26. Ultram provided. Pt reports decreased pain with the use of Ultram. Pt isolates to her room most of the day, napping. S/I, H/I: Denies A/VH: Denies, appears to RIS Sleep: Slept part of the day ADL's: Independent. Group attendance: N/A Were meds taken: Yes Any med S/E: None noted or reported. Mental Status Exam Appearance: Disheveled, wearing personal clothing today Eye contact: Good Behavior: Cooperative. Isolates to self. Speech: Normal rate & rhythm Mood: Euthymic Affect: Constricted Thought process: Linear. Thought Content: Circumstantial. Cognition: A&O X3 Insight: Poor Judgment: Poor Interventions PRN's used: [place]arax Therapeutic interventions: Provided 1:1 assessment with therapeutic communication and active listening, medication administration/education/monitoring, encouragement to perform personal hygiene, and Q15 minute safety checks. Restraints/seclusion/emergency medication: N/A Justification of Continued Inpatient Treatment: SARITA Traylor, Pt. continues to require a safe and supportive environment. She continues to fail outpatient and he is recommending for conservatorship.
[2021-03-04 19:04] VITALS: BP 98/58
[2021-03-04] MEDS: risperiDONE 0.5mg tablet PO SCH (20:31)
[2021-03-04] MEDS: traZODone 50mg tablet PO SCH (20:32)
--- NOTE | 2021-03-05 02:39 | NUR ---
Nursing Progress Note: Legal hold: 5250 Expires 03/09 Client on involuntary status for GD Report received from DARRION Ballard with use of SBAR Why are they here: Jeanne is eating non-edible items, e.g. metal objects, confused, disorganized, and unable to formulate a visible plan for food, clothing and assisted. Assessment What has happened this shift: Pt up on unit at start of shift. Requested pads reported she is menstruating. She asked when she could have her medications informed can be given at 8pm. Watched TV in group room with another pt. Pleasant and cooperative. Reported her Sickle Cell exacerbation is much improved. Took her medications and went to bed. Woke up came to nurses station and requested her 0200 scheduled Tramadol went back to bed. S/I, H/I: Denies A/VH: Denies, no RIS observed Sleep: Slept part of the day ADL's: Independent. Group attendance: N/A Were meds taken: Yes Any med S/E: None noted or reported. Mental Status Exam Appearance: Disheveled, wearing personal clothing today Eye contact: Good Behavior: Cooperative. Isolates to self. Speech: Normal rate & rhythm Mood: Euthymic Affect: Constricted Thought process: Linear. Thought Content: Circumstantial. Cognition: A&O X3 Insight: Poor Judgment: Poor Interventions PRN's used: none Therapeutic interventions: Provided 1:1 assessment with therapeutic communication and active listening, medication administration/education/monitoring, encouragement to perform personal hygiene, and Q15 minute safety checks. Restraints/seclusion/emergency medication: N/A Justification of Continued Inpatient Treatment: SARITA Traylor, Pt. continues to require a safe and supportive environment. She continues to fail outpatient and he is recommending for conservatorship.
[2021-03-05] MEDS: traMADol 50MG tablet PO SCH ×4 (02:48→20:15)
[2021-03-05 07:27] VITALS: BP 111/67
[2021-03-05] MEDS: benztropine 1mg tablet PO SCH ×2 (08:02→20:16)
--- NOTE | 2021-03-05 12:52 | NUR ---
PLACEMENT Sent placement packet to [facility] office. PRESTON Allen
--- NOTE | 2021-03-05 16:32 | NUR ---
Nursing Progress Note: Jeanne Legal hold: 5250 Expires 03/09 Client on involuntary status for GD Report received from Nurse KEMI Meehan with use of SBAR Why are they here: Jeanne was eating non-edible items, e.g. metal objects, confused, disorganized, and unable to formulate a visible plan for food, clothing and skilled nursing. Assessment What has happened this shift: Pt. received sleeping in her room. She awoke to receive her medication and 1:1 assessment completed at the bedside. Pt. reports she was admitted d/t wasnt doing too well she denies SI, HI, A/VH. Pt. reports she will go to her Moms if she wins her hearing. Pt. presents guarded and minimizes MH need. She ate breakfast in her room this morning and c/o 08/26 back pain routine Tramadol continues and she refused needing PRN Tylenol. She napped most of the morning. Pt. ate her lunch in main dining area with minimal interaction with cohorts, stayed to watch a movie and then returned to her room where she slept for a few hours S/I, H/I: Pt denies. A/VH: Pt denies. Sleep: 7.5 hrs per NOC shift, Napped after lunch. ADL's: Independent. Group attendance: No scheduled groups today. Were meds taken: Yes Any med S/E: None noted or reported. Mental Status Exam Appearance: Disheveled female, scaring to L) arm and very short hair wearing unit scrubs. Eye contact: Good Behavior: Cooperative, isolates to self. Speech: Clear. Mood: Euthymic Affect: Flat Thought process: Linear. Thought Content: Getting needs met. Cognition: A&O X3 Insight: Poor Judgment: Poor Interventions PRN's used: None Therapeutic interventions: 1:1 assessment, therapeutic communication, active listening, medication administration/education/monitoring, encouragement to perform personal hygiene, provided a safe and therapeutic environment, distraction, redirection, positive reinforcement, and Q15 minute safety checks. Restraints/seclusion/emergency medication: N/A Justification of Continued Inpatient Treatment: Per SARITA Delgado, Pt. continues to require a safe and supportive environment. She continues to fail outpatient and he is recommending for conservatorship.
[2021-03-05 20:06] VITALS: BP 97/58
[2021-03-05] MEDS: traZODone 50mg tablet PO SCH (20:15)
[2021-03-05] MEDS: risperiDONE 0.5mg tablet PO SCH (20:16)
[2021-03-06] MEDS: traMADol 50MG tablet PO SCH ×4 (02:00→20:26)
--- NOTE | 2021-03-06 02:27 | NUR ---
Nursing Progress Note: Legal hold: 5250 Expires 03/09 Client on involuntary status for GD Report received from DARRION Harris with use of SBAR Why are they here: Jeanne is eating non-edible items, e.g. metal objects, confused, disorganized, and unable to formulate a visible plan for food, clothing and care home. Assessment What has happened this shift: Pt up on unit at start of shift. Sitting in group room watching TV with another pt. Not observed interacting with the other pt. Requested pads reported she is menstruating. Pt is pleasant and cooperative. Went to bed shortly after HS medications. S/I, H/I: Denies A/VH: Denies, no RIS observed Sleep: Asleep at this time ADL's: Independent. Group attendance: N/A Were meds taken: Yes Any med S/E: None noted or reported. Mental Status Exam Appearance: Well groomed Eye contact: Good Behavior: Cooperative. Isolates to self. Speech: Normal rate & rhythm Mood: Euthymic Affect: Constricted Thought process: Linear. Thought Content: Circumstantial. Cognition: A&O X3 Insight: Poor Judgment: Poor Interventions PRN's used: none Therapeutic interventions: Provided 1:1 assessment with therapeutic communication and active listening, medication administration/education/monitoring, encouragement to perform personal hygiene, and Q15 minute safety checks. Restraints/seclusion/emergency medication: N/A Justification of Continued Inpatient Treatment: Per SARITA Delgado, Pt. continues to require a safe and supportive environment. She continues to fail outpatient and he is recommending for conservatorship.
[2021-03-06] MEDS: benztropine 1mg tablet PO SCH ×2 (07:19→20:25)
[2021-03-06 07:30] VITALS: BP 104/65
--- NOTE | 2021-03-06 15:44 | NUR ---
Nursing Progress Note: Jeanne Legal hold: 5250 Expires 03/09 Client on involuntary status for GD Report received from DARRION Ghosh with use of SBAR. Why are they here: Patient was eating non-edible items, e.g. metal objects, confused, disorganized, and unable to formulate a visible plan for food, clothing and chcf. Assessment What has happened this shift: Received patient sleeping at shift change, no distress noted. Pt woke immediately asked for my Tramadol. It was to early, so pt went back to bed and needed to be awoken for breakfast. Pt was compliant with medication and care. Pt still believes she is able to live with her mom and feels she will when her hearing. Pt doesnt feel she has any issues and will be able to take care of herself. [employer] reminded pt of all the failed attempts each [facility]. Pt states mmm-. Pt has no insight into her mental health, denies all psychotic symptoms. Pt paced grajeda occasionally, noted watching a movie in group room. Pt keeps to herself. S/I, H/I: Pt denies. A/VH: Pt denies. Sleep: 8.0 hrs per NOC shift, Intermittent naps throughout day. ADL's: Independent, however requires some prompting. Declined to brush her teeth today I will do it later. Group attendance: No scheduled groups today. Were meds taken: Yes, without issue. Any med S/E: None noted or reported. Mental Status Exam Appearance: Disheveled female, Dressed in green scrub bottoms and baptiste T-shirt. Eye contact: Good Behavior: Cooperative, keeps to herself, more visible on unit. Talks on phone to her mother. Speech: Clear, normal rate/rhythm. Mood: Euthymic Affect: Flat Thought process: Linear. Thought Content: Getting needs met. Cognition: A&O X3 Insight: Poor Judgment: Poor Interventions PRN's used: None Therapeutic interventions: 1:1 assessment, therapeutic communication, active listening, medication administration/education/monitoring, encouragement to perform personal hygiene, provided a safe and therapeutic environment, distraction, redirection, positive reinforcement, and Q15 minute safety checks. Restraints/seclusion/emergency medication: N/A Justification of Continued Inpatient Treatment: Per SARITA Delgado, Pt. continues to require a safe and supportive environment. She continues to fail outpatient and he is recommending for conservatorship.
[2021-03-06 19:20] VITALS: BP 96/58
[2021-03-06] MEDS: risperiDONE 0.5mg tablet PO SCH (20:25)
[2021-03-06] MEDS: traZODone 50mg tablet PO SCH (20:26)
[2021-03-07] MEDS: traMADol 50MG tablet PO SCH ×4 (02:09→20:15)
--- NOTE | 2021-03-07 02:15 | NUR ---
Nursing Progress Note: Jeanne Legal hold: 5250 Expires 03/09 Client on involuntary status for GD Report received from Steven RN with use of SBAR. Why are they here: Patient was eating non-edible items, e.g. metal objects, confused, disorganized, and unable to formulate a visible plan for food, clothing and fdc. Assessment What has happened this shift: Pt watching TV in community room at shift change. Pt polite and made appropriate responses to inquiries. Pt denies A/V H , Pt states she had a good day and continued to watch TV. Pt reminded this nurse about her blanket in the washer. Pt brought blanket when it was done washing. Pt ate snacks in community room and went to bed shortly after. Patient brought evening meds at med time. S/I, H/I: Pt denies. A/VH: Pt denies. Sleep: See sleep hours ADL's: Independent, needs prompting Group attendance: No group in evenings Were meds taken: Yes, without issue. Any med S/E: None noted or reported. Mental Status Exam Appearance: Disheveled female, Dressed in green scrub bottoms and baptiste T-shirt. Eye contact: Good Behavior: Cooperative, keeps to herself, more visible on unit. Talks on phone to her mother. Speech: Clear, normal rate/rhythm. Mood: Euthymic Affect: Flat Thought process: Linear. Thought Content: Getting needs met. Cognition: A&O X3 Insight: Poor Judgment: Poor Interventions PRN's used: None Therapeutic interventions: 1:1 assessment, therapeutic communication, active listening, medication administration/education/monitoring, encouragement to perform personal hygiene, provided a safe and therapeutic environment, distraction, redirection, positive reinforcement, and Q15 minute safety checks. Restraints/seclusion/emergency medication: N/A Justification of Continued Inpatient Treatment: Per SARITA Delgado, Pt. continues to require a safe and supportive environment. She continues to fail outpatient and he is recommending for conservatorship.
[2021-03-07 07:31] VITALS: BP 106/69
[2021-03-07] MEDS: benztropine 1mg tablet PO SCH ×2 (08:00→20:15)
--- NOTE | 2021-03-07 16:54 | NUR ---
Nursing Progress Note: Jeanne Legal hold: 5250 Expires 03/09 Client on involuntary status for GD Report received from DARRION Ghosh with use of SBAR. Why are they here: Patient was eating non-edible items, e.g. metal objects, confused, disorganized, and unable to formulate a visible plan for food, clothing and half-way. Assessment What has happened this shift: Received patient sleeping at shift change, she woke to receive her medications and 1:1 assessment completed at the bedside. Pt. denies SI, HI, A/VH, she minimizes MH needs. Pt. reported she was admitted because my rehab fell through, her plans are to go to her mothers if discharged. She reported 6/10 pain to lower back; routing Tramadol continues and is effective. She presents with poor insight, and guarded at times. She ate breakfast in her room and slept most of the morning. Grab Jack Man encouraged pt. to have a shower and brush her teeth; she has not done at this point. Pt. ate her lunch in her room, she was not interested in eating in the MDR, but was encouraged. She spent most of her day social isolated in her room. S/I, H/I: Denies. A/VH: Denies. Sleep: 8.0 hrs per NOC shift, Intermittent naps throughout day. ADL's: Independent Group attendance: No scheduled groups today. Were meds taken: Yes Any med S/E: None noted or reported. Mental Status Exam Appearance: Disheveled female wearing soiled top, and green scrubs. Eye contact: Good Behavior: Cooperative, isolates, fatigued Speech: Clear Mood: Euthymic Affect: Flat Thought process: Linear. Thought Content: Sleeping Cognition: A&O X3 Insight: Poor Judgment: Poor Interventions PRN's used: None Therapeutic interventions: 1:1 assessment, therapeutic communication, active listening, medication administration/education/monitoring, encouragement to perform personal hygiene, provided a safe and therapeutic environment, distraction, redirection, positive reinforcement, and Q15 minute safety checks. Restraints/seclusion/emergency medication: N/A Justification of Continued Inpatient Treatment: Per SARITA Delgado, Pt. continues to require a safe and supportive environment. She continues to fail outpatient and he is recommending for conservatorship.
[2021-03-07 19:29] VITALS: BP 102/59
[2021-03-07] MEDS: risperiDONE 0.5mg tablet PO SCH (20:14)
[2021-03-07] MEDS: traZODone 50mg tablet PO SCH (20:15)
--- NOTE | 2021-03-08 01:23 | NUR ---
Nursing Progress Note: Jeanne Legal hold: 5250 Expires 03/09 Client on involuntary status for GD Report received from DARRION Ghosh with use of SBAR. Why are they here: Patient was eating non-edible items, e.g. metal objects, confused, disorganized, and unable to formulate a visible plan for food, clothing and penitentiary. Assessment What has happened this shift: Pt watching TV at shift change. Pt is cooperative and makes minimal conversation. Pt states she had a good day today. Pt spent most of her time in the community room with her cohorts watching TV. Pt denies A/VH. Pt ate snack in community room. Pt took medications at med pass w/o complications and went to bed shortly after. Pt asked to be woken up at 0200 for tramadol. S/I, H/I: Denies. A/VH: Denies. Sleep: See sleep hours ADL's: Independent Group attendance: No group in the evening Were meds taken: Yes Any med S/E: None noted or reported. Mental Status Exam Appearance: Disheveled female wearing soiled top, and green scrubs. Eye contact: Good Behavior: Cooperative, isolates, fatigued Speech: Clear Mood: Euthymic Affect: Flat Thought process: Linear. Thought Content: Sleeping Cognition: A&O X3 Insight: Poor Judgment: Poor Interventions PRN's used: None Therapeutic interventions: 1:1 assessment, therapeutic communication, active listening, medication administration/education/monitoring, encouragement to perform personal hygiene, provided a safe and therapeutic environment, distraction, redirection, positive reinforcement, and Q15 minute safety checks. Restraints/seclusion/emergency medication: N/A Justification of Continued Inpatient Treatment: Per SARITA Delgado, Pt. continues to require a safe and supportive environment. She continues to fail outpatient and he is recommending for conservatorship.
[2021-03-08] MEDS: traMADol 50MG tablet PO SCH ×4 (02:02→20:17)
[2021-03-08 08:00] VITALS: BP 105/69
[2021-03-08] MEDS: benztropine 1mg tablet PO SCH ×2 (08:03→20:17)
--- NOTE | 2021-03-08 13:38 | NUR ---
Nursing Progress Note Legal hold: T-Con Client on involuntary status for GD Report received from RN with use of SBAR Why are they here: Patient was eating non-edible items, e.g. metal objects, confused, disorganized, and unable to formulate a visible plan for food, clothing and longterm. Assessment What has happened this shift: Received patient in bed sleeping w/o distress at shift change. Pt woke and was cooperative with vitals; ate breakfast and took AM meds w/o issue. Pt tolerated AM assessments and engaged easily in conversation. Pt seems amenable to LPS conservatorship, but would rather not be conserved. Would [facility] to be discharged to [facility]. Pt up to day room and watched TV. Overall, she is pleasant and cooperative, yet minimizes her MH Sxs and history. Pt received T-con papers from court today and encouraged to prepare a statement for the [employer] at her hearing in [place]. Pt reports back pain managed well today. S/I, H/I: Denies A/VH: Denies Sleep: Intermittent naps throughout day ADL's: Independent Group attendance: No scheduled groups today Were meds taken: Yes Any med S/E: None noted or reported Mental Status Exam Appearance: Disheveled in green scrubs Eye contact: Good Behavior: Cooperative, isolative Speech: Clear Mood: Euthymic Affect: Flat Thought process: Linear Thought Content: Conservatorship Cognition: A&O X3 Insight: Poor Judgment: Poor Interventions PRN's used: None Therapeutic interventions: 1:1 assessment, therapeutic communication, active listening, medication administration/education/monitoring, encouragement to perform personal hygiene, provided a safe and therapeutic environment, distraction, redirection, positive reinforcement, and Q15 minute safety checks. Restraints/seclusion/emergency medication: N/A Justification of Continued Inpatient Treatment: SARITA Traylor, Pt. continues to require a safe and supportive environment. She continues to fail outpatient and is on T-Con for conservatorship.
[2021-03-08 20:00] VITALS: BP 108/67
[2021-03-08] MEDS: risperiDONE 0.5mg tablet PO SCH (20:17)
[2021-03-08] MEDS: traZODone 50mg tablet PO SCH (20:17)
--- NOTE | 2021-03-09 00:41 | NUR ---
Nursing Progress Note Legal hold: T-Con Client on involuntary status for GD Report received from RN with use of SBAR Why are they here: Patient was eating non-edible items, e.g. metal objects, confused, disorganized, and unable to formulate a visible plan for food, clothing and mcc. Assessment What has happened this shift: Pt in back hallway at shift change. Pt was carrying a washcloth with what looked like red paint and smelled like nail cymro. When questioned the pt states that she is trying to remove her nail cymro. A tech supplied the pt with nail cymro remover. Pt seen later trying to put the washcloth under the back hallway door. When asked what she was doing pt explains that she was retrieving the washcloth from under the door. Upon further investigation the patient had a bottle of red nail cymro and pens from the day room and was writing messages on the wash cloth and trying to shove the washcloth underneath the back hallway doors. Patient at first denied behavior but later came back and stated it was silly. When asked if the pt was having anxiety due to Tcon paperwork today, pt stated no that wasn't a problem. Pt ate snack at snack time in community room with cohorts. Pt Took evening meds at med pass w/o complications. Pt asked for something due to trouble sleeping an hour after originally going to bed. pt received 50mg hydroxyzine PRN. Pt went to sleep shortly after. S/I, H/I: Denies A/VH: Denies Sleep: See sleep hours ADL's: Independent Group attendance: No group in the evenings Were meds taken: Yes Any med S/E: None noted or reported Mental Status Exam Appearance: Disheveled in green scrubs Eye contact: Good Behavior: Cooperative, isolative Speech: Clear Mood: Euthymic Affect: Flat Thought process: Linear Thought Content: Conservatorship Cognition: A&O X3 Insight: Poor Judgment: Poor Interventions PRN's used: None Therapeutic interventions: 1:1 assessment, therapeutic communication, active listening, medication administration/education/monitoring, encouragement to perform personal hygiene, provided a safe and therapeutic environment, distraction, redirection, positive reinforcement, and Q15 minute safety checks. Restraints/seclusion/emergency medication: N/A Justification of Continued Inpatient Treatment: Per SARITA Delgado, Pt. continues to require a safe and supportive environment. She continues to fail outpatient and is on T-Con for conservatorship.
[2021-03-09] MEDS: traMADol 50MG tablet PO SCH ×4 (02:03→20:27)
[2021-03-09] MEDS: benztropine 1mg tablet PO SCH ×2 (08:12→20:25)
[2021-03-09 08:29] VITALS: BP 99/60
--- NOTE | 2021-03-09 10:45 | NUR ---
PLACEMENT UPDATE Public Guardian requests that client stays local due to upcoming court date. Packet is in queue at [place] [facility] awaiting review. Client has been declined at [facility]. PRESTON Allen
--- NOTE | 2021-03-09 10:52 | NUR ---
Called Dwayne Sims to advocate for Jeanne to get admitted there. Jessica reported she will interview her next week and hope they will be off lock down soon. PRESTON Allen
--- NOTE | 2021-03-09 17:17 | NUR ---
Nursing Progress Note Legal hold: T-Con Client on involuntary status for GD Report received from Cosme MAIER with use of SBAR: Why they are here: Patient was eating non-edible items, e.g. metal objects, confused, disorganized, and unable to formulate a visible plan for food, clothing and jail. Assessment What has happened this shift: Patient is resting quietly in bed at the start of the shift. Cooperative with 1:1 assessment and medications. Appears guarded AEB minimizing mental health sx. Answers direct questions but does not engage in conversation. Noted talking to herself frequently. Appears somewhat paranoid when talking to herself as if she believes someone is trying to follow her. Looks over her shoulder at times. Hides a pen in her bra. Isolates to her room much of the day. Noted napping off and on. S/I, H/I: Denies A/VH: Denies but appears to be responding to internal stimuli. Sleep: Naps off and on throughout the day. ADL's: Independent Group attendance: NA Were meds taken: Yes Any med S/E: None observed or reported. Mental Status Exam Appearance: Middle aged appearing woman with short hair and long pieces in the back, wearing green unit scrubs that frequently sag. Eye contact: Good Behavior: Cooperative, paranoid Speech: Clear, normal rate/ volume, minimal Mood: Good. Appears Euthymic Affect: Constricted Thought process: Linear, paranoid Thought Content: Meeting needs. Internally occupied. Cognition: A&O X3 to person place and time Insight: Poor Judgment: Poor Interventions PRN's used: None Therapeutic interventions: 1:1 assessment, therapeutic communication, active listening, medication administration/education/monitoring, encouragement to perform personal hygiene, provided a safe and therapeutic environment, distraction, redirection, positive reinforcement, and Q15 minute safety checks. Restraints/seclusion/emergency medication: N/A Justification of Continued Inpatient Treatment: SARITA Traylor, Pt. continues to require a safe and supportive environment. She continues to fail outpatient and is on T-Con for conservatorship.
[2021-03-09 20:00] VITALS: BP 100/59
[2021-03-09] MEDS: risperiDONE 0.5mg tablet PO SCH (20:26)
[2021-03-09] MEDS: traZODone 50mg tablet PO SCH (20:27)
[2021-03-10] MEDS: traMADol 50MG tablet PO SCH ×4 (01:52→20:25)
--- NOTE | 2021-03-10 03:00 | NUR ---
Nursing Progress Note Legal hold: T-Con Client on involuntary status for GD Report received from KEMI Garcia with use of SBAR: Why they are here: Patient was eating non-edible items, e.g. metal objects, confused, disorganized, and unable to formulate a visible plan for food, clothing and nursing home. Assessment What has happened this shift: Patient is up walking in the hallway at the start of the shift. She is pleasant and cooperative with care. 1:1 assessment and medications. She was pleasant but did seem a little guarded and startled when I went to scan her armband for her medicines. She answers direct questions, engaged in some conversation, and was able to tell me that she has a 19 year old daughter. She stated she will be trying to get to a more stable place where her family could possibly visit her (pt's mother and pt's daughter). She did appear fidgety when answering questions and was scratching her arms and back She denied any AH/VH or SI/HI. She asked if she could have 2 Trazodones tonight to help her to sleep (she already had 2 ordered). She also reported that she has been having a little more back pain lately. When asked how long she has noticed more back pain, she stated it has been going on for a few weeks. S/I, H/I: Denies A/VH: Denies. She did not appear to be responding to internal stimuli. Sleep: Sleeping at the time of this note ADL's: Independent Group attendance: NA Were meds taken: Yes Any med S/E: None observed or reported. Mental Status Exam Appearance: Female patient who appears somewhat younger than her stated age, with short hair and long pieces in the back, wearing green unit scrubs that frequently sag. Eye contact: Good Behavior: Cooperative and at times fidgety and paranoid Speech: Clear, normal rate/ volume, minimal Mood: Good. Appears Euthymic Affect: Constricted Thought process: Linear, and somewhat goal directed (would like to be in a place where her family can possibly visit) Thought Content: Would like 2 sleeping pills (trazodone) Cognition: A&O X3 to person, situation, and time Insight: Poor Judgment: Poor Interventions PRN's used: None Therapeutic interventions: 1:1 assessment, therapeutic communication, active listening, medication administration/education/monitoring, encouragement to perform personal hygiene, provided a safe and therapeutic environment, distraction, redirection, positive reinforcement, and Q15 minute safety checks. Restraints/seclusion/emergency medication: N/A Justification of Continued Inpatient Treatment: Pt. continues to require a safe and supportive environment. She continues to fail outpatient and is on T-Con for conservatorship.
[2021-03-10] MEDS: benztropine 1mg tablet PO SCH ×2 (07:58→20:25)
[2021-03-10 08:22] VITALS: BP 100/63
[2021-03-10] MEDS: hydrOXYzine 25 MG tablet PO PRN (14:46)
--- NOTE | 2021-03-10 17:41 | NUR ---
Nursing Progress Note Legal hold: T-Con Client on involuntary status for GD Report received from Jie MAIER with use of SBAR Why they are here: Patient was eating non-edible items, e.g. metal objects, confused, disorganized, and unable to formulate a visible plan for food, clothing and prison. Assessment What has happened this shift: Patient is resting quietly in bed at the start of the shift. Eats breakfast in the community room and interacts appropriately with staff and peers. Watches TV shortly and returns to her room. Cooperative with 1:1 assessment and medications. Paces the unit at times. Hides small items in the front of her bra and appears somewhat paranoid at times. Noted writing on a milk carton then hiding it in her room. Denies mental health symptoms but is noted talking to herself at times. In the late morning the patient watches TV in the community room and eats a snack. Paces to her room and back to the community room frequently. Patient is seen acting as if shes writing very small on one of the doors but upon inspection no writing was there. Complains of increased anxiety after lunch. PRN Atarax is given and appears effective. S/I, H/I: Denies A/VH: Denies but appears to be responding to internal stimuli. Sleep: 1 hour in the morning. Takes brief naps during the day. ADL's: Independent Group attendance: NA Were meds taken: Yes Any med S/E: None observed or reported. Mental Status Exam Appearance: Middle aged appearing woman with short hair and long pieces in the back, wearing green unit scrubs that frequently sag. Eye contact: Good Behavior: Cooperative, paranoid Speech: Clear, normal rate/ volume, minimal Mood: Good. Affect: Constricted Thought process: Linear, paranoid Thought Content: Meeting needs. Internally occupied. Cognition: A&O X3 to person place and time Insight: Poor Judgment: Poor Interventions PRN's used: Atarax Therapeutic interventions: 1:1 assessment, therapeutic communication, active listening, medication administration/education/monitoring, encouragement to perform personal hygiene, provided a safe and therapeutic environment, distraction, redirection, positive reinforcement, and Q15 minute safety checks. Restraints/seclusion/emergency medication: N/A Justification of Continued Inpatient Treatment: Manuel Delgado PA, Pt. continues to require a safe and supportive environment. She continues to fail outpatient and is on T-Con for conservatorship.
[2021-03-10 19:34] VITALS: BP 109/61
[2021-03-10] MEDS: traZODone 50mg tablet PO SCH (20:25)
[2021-03-10] MEDS: risperiDONE 0.5mg tablet PO SCH (20:25)
[2021-03-11] MEDS: hydrOXYzine 25 MG tablet PO PRN ×3 (00:52→16:32)
[2021-03-11] MEDS: traMADol 50MG tablet PO SCH ×4 (00:55→20:18)
--- NOTE | 2021-03-11 02:29 | NUR ---
Nursing Progress Note Jeanne Legal hold: T-Con Client on involuntary status for GD Report received from Jose MAIER with use of SBAR Why they are here: Patient was eating non-edible items, e.g. metal objects, confused, disorganized, and unable to formulate a visible plan for food, clothing and longterm. Assessment What has happened this shift: Patient is in rec room watching TV with peers. Pt states she had a pretty good day and presents as pleasant but somewhat guarded. Denies MH symptoms and has no needs at this time. Participated with snacks and took all HS medications. She was noted to be talking to herself while pacing the hallways. At around 0100 pt came to this RN and requested something for anxiety. Pt given 50MG of atarax with little effect. S/I, H/I: Denies A/VH: Denies but appears to be responding to internal stimuli. Sleep: ADL's: Independent Group attendance: NA Were meds taken: Yes Any med S/E: None observed or reported. Mental Status Exam Appearance: Middle aged appearing woman with short hair and long pieces in the back, wearing green unit scrubs with waddell top. Eye contact: Good Behavior: Cooperative, paranoid Speech: Clear, normal rate/ volume, minimal Mood: Good. Affect: Constricted Thought process: Linear, paranoid Thought Content: Meeting needs. Internally occupied. Cognition: A&O X3 to person place and time Insight: Poor Judgment: Poor Interventions PRN's used: Therapeutic interventions: 1:1 assessment, therapeutic communication, active listening, medication administration/education/monitoring, encouragement to perform personal hygiene, provided a safe and therapeutic environment, distraction, redirection, positive reinforcement, and Q15 minute safety checks. Restraints/seclusion/emergency medication: N/A Justification of Continued Inpatient Treatment: Per SARITA Delgado, Pt. continues to require a safe and supportive environment. She continues to fail outpatient and is on T-Con for conservatorship.
[2021-03-11] MEDS: benztropine 1mg tablet PO SCH ×2 (07:55→20:18)
[2021-03-11 08:05] VITALS: BP 120/77
--- NOTE | 2021-03-11 17:15 | NUR ---
Nursing Progress Note: Legal hold: T-Con Client on involuntary status for GD Report received from KEMI Ceron with use of SBAR Why they are here: Patient was eating non-edible items, e.g. metal objects, confused, disorganized, and unable to formulate a visible plan for food, clothing and long term. Assessment What has happened this shift: Received patient while she was sleeping in bed. Patient got up before breakfast, and informed she was Good. Patient c/o back pain rated at a 9 on a scale of 1-10, and Ultram was given. Patient c/o Anxiety, and Atarax 100mg po was given at 0817. Patient took a morning nap after breakfast. Patient has had continuous requests throughout the daytime, such as I want my pain pill now (at 1320) because I want to go lay down. I need an eraser, but I want a certain one. (Located multiple erasers for the patient that she kept refusing to use, with no reason why, handing them back and requesting a different one), and making requests for snacks after being informed of the snack schedule. Patient started requesting multiple items out of her belongings locker. She was informed as soon as staff was available to get the items, they will come to her. Patient continued to ask for these items over and over. Multiple requests were made to the patient to keep her scrub bottoms pulled up and over her underwear. Immediately after these requests were made, the patient was seen standing in the hallway pulling down her green scrub bottoms, and putting her hands inside her white underwear for lengthy periods of time. Patient was polite when making all requests, but was compulsive when asking for the same thing over and over. Patient interacted throughout the day with multiple peers in the Community Room while they read scripture and ambulated in the grajeda together. S/I, H/I: Denies A/VH: Patient denies however he appears to be responding to internal stimuli aeb talking to someone when alone in the Community Room. Sleep: 3.25 hours ADL's: Independent Group attendance: No Group Meeting held today. Were meds taken: Yes, without hesitation. Any med S/E: None observed or reported. Mental Status Exam Appearance: Middle aged appearing woman with short hair and long pieces in the back, wearing green unit scrubs with waddell top. Eye contact: Good Behavior: Cooperative, Compulsive Speech: Clear, normal rate/ volume Mood: Good. Affect: Compulsive Thought process: Perseveration Thought Content: Meeting needs Cognition: A&O X3 to person place and time Insight: Poor Judgment: Poor Interventions PRN's used: Atarax 100mg po x2 Therapeutic interventions: 1:1 assessment, therapeutic communication, active listening, medication administration/education/monitoring, encouragement to perform personal hygiene, provided a safe and therapeutic environment, distraction, redirection, positive reinforcement, and Q15 minute safety checks. Restraints/seclusion/emergency medication: N/A Justification of Continued Inpatient Treatment: SARITA Traylor, Pt. continues to require a safe and supportive environment. She continues to fail outpatient and is on T-Con for conservatorship.
[2021-03-11 19:24] VITALS: BP 119/72
[2021-03-11] MEDS: risperiDONE 0.5mg tablet PO SCH (20:19)
[2021-03-11] MEDS: traZODone 50mg tablet PO SCH (20:19)
[2021-03-12] MEDS: traMADol 50MG tablet PO SCH ×4 (02:43→19:32)
[2021-03-12] MEDS: hydrOXYzine 25 MG tablet PO PRN ×3 (02:59→15:30)
--- NOTE | 2021-03-12 03:06 | NUR ---
Nursing Progress Note: Jeanne Legal hold: T-Con Client on involuntary status for GD Report received from KEMI Garcia with use of SBAR Why they are here: Patient was eating non-edible items, e.g. metal objects, confused, disorganized, and unable to formulate a visible plan for food, clothing and alf. Assessment What has happened this shift: Received patient in community room watching TV at change of shift. Pt states she had a really good day and read for a while today and watched TV. Denies MH symptoms. Pt up for snacks and took all HS medications. Before bedtime pt was noted to be touching the floor in the hallway with her fingertips. When asked what she was doing she said she was counting and then went back to her room. Pt requested snacks at 2200 stating I am really hungry. Pt up at 0300 requesting some anti-anxiety medication, 50MG atarax given. S/I, H/I: Denies A/VH: Patient denies however he appears to be responding to internal stimuli Sleep: ADL's: Independent Group attendance: Were meds taken: Yes Any med S/E: None observed or reported. Mental Status Exam Appearance: Middle aged appearing woman with short hair and long pieces in the back, wearing green unit scrubs with waddell top. Eye contact: Good Behavior: Cooperative, Compulsive Speech: Clear, normal rate/ volume Mood: Good. Affect: Compulsive Thought process: Perseveration Thought Content: Meeting needs Cognition: A&O X3 to person place and time Insight: Poor Judgment: Poor Interventions PRN's used: atarax Therapeutic interventions: 1:1 assessment, therapeutic communication, active listening, medication administration/education/monitoring, encouragement to perform personal hygiene, provided a safe and therapeutic environment, distraction, redirection, positive reinforcement, and Q15 minute safety checks. Restraints/seclusion/emergency medication: N/A Justification of Continued Inpatient Treatment: Per SARITA Delgado, Pt. continues to require a safe and supportive environment. She continues to fail outpatient and is on T-Con for conservatorship.
[2021-03-12] MEDS: benztropine 1mg tablet PO SCH ×2 (07:31→19:32)
[2021-03-12 09:07] VITALS: BP 109/72
--- NOTE | 2021-03-12 09:40 | NUR ---
PLACEMENT Sent updated notes to TAD office to forward to Dwayne Sims as they may interview Jeanne this week. PRESTON Allen
--- NOTE | 2021-03-12 13:48 | NUR ---
Reassessment: Pt PO intake ~90% of regular meals w/ double protein TIDWM, exceeding estimated nutritional needs. Pt w/ protein intake of 286% of estimated needs; could benefit from d/c double protein TIDWM; purchasing intern d/w KEMI. LBM 03/11; bowel care available PRN. No nutrition intervention implemented at this time, will continue to monitor. Recs: 1. Continue Regular diet as tolerated 2. D/C double protein TIDWM 3. Bowel care PRN 4. Weekly wts Addendum: 03/12/21 at 1349 by Ulises Webb Wire Weaver [address]per RD Amended: Links added. Addendum: 03/12/21 at [address] I have reviewed assessment by purchasing intern
--- NOTE | 2021-03-12 14:50 | NUR ---
Pt. attended group today. Today's group was about the different communications styles i.e passive, aggressive and assertive. We discussed what the characteristics of each style was. We then discussed where they saw themselves at now and where they would like to be with their communication style. Pt. engaged in the listening activity with this Director Of Strategic Initiatives, she shared the things she enjoys doing. She shared that she loves to race cars and to sow. Her thought process was linear and her thought content appeared WNL. This Director Of Strategic Initiatives did observe her reacting to internal stimuli and also speaking out loud at time during the group. She also got up a lot in the midst of the group and would leave and come back often. Her overall demeanor was pleasant and compliant. She appeared to enjoy the group. She didn't really attempt to engage with any of her peers but listened to what others were sharing. Twila Moffett, DISTRIBUTED [employer]GY SYSTEMS CONSULTANT
--- NOTE | 2021-03-12 17:22 | NUR ---
Nursing Progress Note: Jeanne Stoll Legal hold: T-Con Client on involuntary status for GD Report received from Shefali MAIER with use of SBAR Why they are here: Patient was eating non-edible items, e.g. metal objects, confused, disorganized, and unable to formulate a visible plan for food, clothing and assisted. Assessment What has happened this shift: Pt. received sleeping in her room, she woke to receive her medication and 1:1 assessment completed at the bedside. Pt. denies SI, HI, AH, VH and minimizes MH needs. She reports she was admitted because I didnt get in rehab and I got sick she wants to discharge to her Moms. Pt. presents as guarded during assessment. Pt. was observed pacing in the grajeda wrapped in a comforter and performing obsessive stepping ritual. Service Desk Agent witnessed pt. responding to IS at length, she later acknowledged she was talking to my ex, I have allot of things going on, I wrote it down too and slipped under the door Pt. presented as delusional and was given PRN Atarax 50mg. She ate her meals in the dining room, isolating socially. At 1400 ad copy writer observed pt. using her finger to write on the chair in tv room, and responding to IS while pacing; PRN Atarax 100mg presented to pt., but she refused needing any medication. She presents as suspicious and reports Im okay, just fine ad copy writer could hear slight grinding of her teeth. At 1530 pt. approached ad copy writer requesting PRN for anxiety, Atarax 100mg given; effective. Pt. sat watching tv for over an hour, and c/o anxiety requesting another PRN. Too close to last PRN encouraged pt. to return for a rest, VS checked WNL. S/I, H/I: Denies A/VH: Denies, appears to be responding to IS through most of the shift Sleep:None ADL's: Independent Group attendance: No Were meds taken: Yes Any med S/E: None observed or reported. Mental Status Exam Appearance Eye contact: Good Behavior: Cooperative, paranoid Speech: Clear minimal speech Mood: Good. Affect: Flat Thought process: Linear, anxious Thought Content: Meeting needs. Internally occupied. Cognition: A&O X3 to person place and time Insight: Poor Judgment: Poor Interventions PRN's used: Atarax X2 Therapeutic interventions: 1:1 assessment, therapeutic communication, active listening, medication administration/education/monitoring, encouragement to perform personal hygiene, provided a safe and therapeutic environment, distraction, redirection, positive reinforcement, and Q15 minute safety checks. Restraints/seclusion/emergency medication: N/A Justification of Continued Inpatient Treatment: SARITA Traylor, Pt. continues to require a safe and supportive environment. She continues to fail outpatient and is on T-Con for conservatorship.
[2021-03-12] MEDS: risperiDONE 0.5mg tablet PO SCH (19:32)
[2021-03-12] MEDS: traZODone 50mg tablet PO SCH (19:32)
[2021-03-12 20:25] VITALS: BP 108/70
[2021-03-13] MEDS: traMADol 50MG tablet PO SCH ×4 (02:34→20:08)
--- NOTE | 2021-03-13 02:54 | NUR ---
Nursing Progress Note: Jeanne Stoll Legal hold: T-Con Client on involuntary status for GD Report received from Jose MAIER with use of SBAR Why they are here: Patient was eating non-edible items, e.g. metal objects, confused, disorganized, and unable to formulate a visible plan for food, clothing and long-term. Assessment What has happened this shift: Pt pacing in halls at stat of shift. She is talking and gesturing to in response to internal stimuli. She also has a frequent and repetitive skip in her walk. Pt admitted that she was "dealing with some stuff" her description of what she was dealing with was garbled but she said "don't worry I'll be okay" Pt asked for PRN for "anxiety" nothing available. Routine HS meds given early. Pt was able to calm down became less agitated. Ate snack in group room. S/I, H/I: Denies A/VH: Denies, appears to be responding to IS Sleep: Asleep at this time ADL's: Independent Group attendance: NA Were meds taken: Yes Any med S/E: None observed or reported. Mental Status Exam Appearance Eye contact: Good Behavior: Agitated cooperative Speech: Clear minimal speech Mood: Good. Affect: Animated Thought process: disorganized anxious Thought Content: Internally occupied. Cognition: A&O X3 to person place and time Insight: Poor Judgment: Poor Interventions PRN's used: Therapeutic interventions: 1:1 assessment, therapeutic communication, active listening, medication administration/education/monitoring, encouragement to perform personal hygiene, provided a safe and therapeutic environment, distraction, redirection, positive reinforcement, and Q15 minute safety checks. Restraints/seclusion/emergency medication: N/A Justification of Continued Inpatient Treatment: SARITA Traylor, Pt. continues to require a safe and supportive environment. She continues to fail outpatient and is on T-Con for conservatorship.
[2021-03-13] MEDS: hydrOXYzine 25 MG tablet PO PRN ×3 (03:24→13:58)
[2021-03-13] MEDS: benztropine 1mg tablet PO SCH ×2 (07:36→20:08)
[2021-03-13 08:48] VITALS: BP 117/60
--- NOTE | 2021-03-13 13:45 | NUR ---
Pt. attended group today. We continued talking about communication today and talked about passive aggressive communication and they worked on how to have speak assertively to someone. We also went over a communication stop light tool to help when communication gets heated. Pt. was quiet during the group but was engaged in listening to her peers and this Human Resources Support Specialist. She was interested in what was being said. When asked to share about her own process she gives minimal information and tends to be guarded. She reported that she is "doing okay right now". She could be heard talking to herself while others were talking in the group. Her demeanor was calm, compliant and pleasant to work with. She appears to enjoy being in the group even thought she doesn't always engage in a personal way with her peers. Twila Moffett, ANALYTICAL ENGINEER
--- NOTE | 2021-03-13 17:26 | NUR ---
Nursing Progress Note: Legal hold: T-Con Client on involuntary status for GD Report received from DARRION Ghosh with use of SBAR Why they are here: Patient was eating non-edible items, e.g. metal objects, confused, disorganized, and unable to formulate a visible plan for food, clothing and longterm. Assessment What has happened this shift: Received patient while she was asleep in her room. Patient awoke at approximately 0720 requesting her pain medication. Informed patient her Ultram is scheduled for 0800. Patient responded she was doing Good this morning and slept well. Patient requested something for anxiety. Administered Atarax 100mg by mouth at 0739. Patient received relief from Atarax & Ultram. Patient ambulated in the hallway and requested coffee while waiting for breakfast. Patient reports auditory hallucinations and has been observed speaking to self when alone in her room or in the dining room. Patient participated in AM Group Meeting. Mental Status Exam S/I, H/I: Denies A/VH: A/VH: Positive AH Observed speaking to self in the Community Room or her Room. Sleep: 6.25 hours of Sleep ADL's: Independent Group attendance: Attended morning Group Meeting & participated. Were meds taken: Yes, without hesitation. Any med S/E: None observed or reported. Appearance: Patient has short black hair, wearing a black sweatshirt and green scrubs. Eye contact: Good Behavior: Cooperative. Speech: Clear, minimal speech. Mood: Good. Affect: Comfortable Thought process: Thought Blocking Thought Content: Meeting Own Needs. Cognition: A&O X3 to person place and time Insight: Poor Judgment: Poor PRN's used: None Therapeutic interventions: Maintained safe, therapeutic environment, encouraged unit orientation, provided appropriate nutrition, medication administration/education/monitoring, redirection as needed, encouraged therapeutic conversation; Q15 min safety checks. Restraints/seclusion/emergency medication: N/A Justification of Continued Inpatient Treatment: Pt presents to [facility] with psychotic symptoms, unable to formulate plan for food, longterm or clothing.
--- NOTE | 2021-03-13 17:58 | NUR ---
Group Art Tx Continued: Patient was able to follow directives, however reported a high level of pain which was distracting for her. Patients response to the activity was simplified as she yris a 'smiley face in black' to represent her symbol of self. She said and wrote very little. She was restless and came in and out of the session quietly. She remained respectful of others however, could not maintain her attention to complete her process. * Please refer to [employer]) for a compete overview of the group experience for this patient. Gianna Marques MA, DATA SUPPORT ANALYST #[id number] [facility], [facility] Art Therapist Addendum: 03/13/21 at 1801 by Gianna Marques SS Amended: Links added.
[2021-03-13 19:49] VITALS: BP 113/74
[2021-03-13] MEDS: traZODone 50mg tablet PO SCH (20:08)
[2021-03-13] MEDS: risperiDONE 0.5mg tablet PO SCH (20:08)
[2021-03-14] MEDS: traMADol 50MG tablet PO SCH ×4 (01:58→20:06)
--- NOTE | 2021-03-14 02:17 | NUR ---
Nursing Progress Note: Jeanne Legal hold: T-Con Client on involuntary status for GD Report received from Jose MAIER with use of SBAR Why they are here: Patient was eating non-edible items, e.g. metal objects, confused, disorganized, and unable to formulate a visible plan for food, clothing and halfway. Assessment What has happened this shift: Received pacing the hallways at change of shift. Pt calm and cooperative and states she is doing really good. Denies MH symptoms and at this time has no needs. Pt up for snacks and took all HS medications. The pt was noted to be doing some ritual or OCD maneuvers in the hallway (tapping her feet like hopscotch and touching the floor with her fingertips.) The patient asked this RN several times if the Dr put an order in for her for extra trazadone and Vicodin. This RN let the pt know there was no order for those medications. Pt up at 0200 requesting her 0200 dose of Ultram and again questioned if there was Vicodin ordered. Mental Status Exam S/I, H/I: Denies A/VH: A/VH: Positive AH Observed pt responding to internal stimuli Sleep: ADL's: Independent Group attendance: Were meds taken: Yes Any med S/E: None observed or reported. Appearance: Patient has short black hair, wearing a black sweatshirt and green scrubs. Eye contact: Good Behavior: Cooperative. Speech: Clear, minimal speech. Mood: Good. Affect: Comfortable Thought process: Thought Blocking Thought Content: Meeting Own Needs. Cognition: A&O X3 to person place and time Insight: Poor Judgment: Poor PRN's used: None Therapeutic interventions: Maintained safe, therapeutic environment, encouraged unit orientation, provided appropriate nutrition, medication administration/education/monitoring, redirection as needed, encouraged therapeutic conversation; Q15 min safety checks. Restraints/seclusion/emergency medication: N/A Justification of Continued Inpatient Treatment: Pt presents to [facility] with psychotic symptoms, unable to formulate plan for food, halfway or clothing.
[2021-03-14] MEDS: benztropine 1mg tablet PO SCH ×2 (07:48→20:06)
[2021-03-14 07:49] VITALS: BP 105/70
[2021-03-14] MEDS: hydrOXYzine 25 MG tablet PO PRN ×2 (08:03→16:36)
--- NOTE | 2021-03-14 13:33 | NUR ---
Pt. attended group today. The topic today was identifying the triggers, signs and symptoms of an upcoming episode/event so that Pts. can learn to apply coping skills before they get to a bad place with their symptoms (6-7 or more on a scale of 0-10). We reviewed a safety plan sheet with appropriate coping skills. Pt. engaged minimally in the group. She sat and listened to her peers and this Campaign Director. She did share once when asked about what she believed her triggers to be. She reported that she does not like it when a person becomes overbearing toward her, this makes her very angry. Today she did sit in the room for the entire group, it has been her practice in the group to get up and down and leave the room. Twila Moffett, REAL ESTATE ASSISTANT
--- NOTE | 2021-03-14 14:51 | NUR ---
ACCEPTED AT [facility] Jeanne has been accepted at [facility]. They would like to transfer her on Friday pending Covid and chest x-ray results. PRESTON Allen
--- NOTE | 2021-03-14 16:07 | NUR ---
Group Art Tx, Continued: Patient attended the group today, was able to focus long enough to hear the instructions to complete the Self Care handout. Patient remained restless throughout the session, getting up and leaving the room/group and then quietly returning without creating disruption. Patient was able to draw a picture of her "Steps on My Path to Wellness" however, did not feel ready to share with the group noting "I just not finished with this yet, I have something to add." * Please refer to [employer] for a complete overview of the group experience for this patient. Gianna Marques MA, GRINDER HARDBOARD #[id number] [facility] Art Therapist Addendum: 03/14/21 at 1608 by Gianna Marques SS Amended: Links added.
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
[2021-03-14] MEDS: traZODone 50mg tablet PO SCH (20:06)
[2021-03-14] MEDS: risperiDONE 0.5mg tablet PO SCH (20:07)
[2021-03-14 20:31] VITALS: BP 108/67
[2021-03-15] MEDS: traMADol 50MG tablet PO SCH ×4 (02:08→20:22)
--- NOTE | 2021-03-15 02:48 | NUR ---
Nursing Progress Note: Jeanne Stoll Legal hold: T-Con Client on involuntary status for GD Report received from Girish MAIER with use of SBAR Why they are here: Patient was eating non-edible items, e.g. metal objects, confused, disorganized, and unable to formulate a visible plan for food, clothing and longterm. Assessment Pt. received sitting up in bed resting. Pt states she is good and had an OK day. Pt denies MH symptoms and states she is good and doesnt need any help. Pt up for snacks in the community room and medications administered there. Pt swallowed all her meds. A few minutes later she came to this RN and states she was choking and spit up her Cogentin and needs another one. This RN looked for the pill and couldnt find it. Pt was adamant about getting another Cogentin stating it makes her stomach feel better. CN spoke to pt stating we cannot just get another pill out, it has to be verified. Pt finished up with snacks and went to bed. S/I, H/I: Denies A/VH: Denies, appears to be responding to IS Sleep: ADL's: Independent Group attendance: Were meds taken: Yes Any med S/E: None observed or reported. Mental Status Exam Appearance Eye contact: Good Behavior: Cooperative, paranoid Speech: Clear minimal speech Mood: Good Affect: Flat Thought process: Disorganized, anxious Thought Content: Internally occupied. Cognition: A&O X3 to person place and time Insight: Poor Judgment: Poor Interventions PRN's used: Therapeutic interventions: 1:1 assessment, therapeutic communication, active listening, medication administration/education/monitoring, encouragement to perform personal hygiene, provided a safe and therapeutic environment, distraction, redirection, positive reinforcement, and Q15 minute safety checks. Restraints/seclusion/emergency medication: N/A Justification of Continued Inpatient Treatment: Per SARITA Delgado, Pt. continues to require a safe and supportive environment. She continues to fail outpatient and is on T-Con for conservatorship.
[2021-03-15 08:00] VITALS: BP 97/65
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
[2021-03-15] MEDS: benztropine 1mg tablet PO SCH ×2 (08:11→20:22)
[2021-03-15] MEDS: hydrOXYzine 25 MG tablet PO PRN ×2 (08:11→16:48)
--- NOTE | 2021-03-15 10:06 | NUR ---
PLACEMENT UPDATE Jeanne has been accepted at [facility]. They would like to admit her on Friday03/19/21. She will need another Covid test done on Friday. PRESTON Allen
--- NOTE | 2021-03-15 16:11 | NUR ---
Group Art Tx Continued: Patient wandered in an out of the group room for the entire session. Patient was provided with the activity which she attempted to complete. Her work and process were disorganized and this therapist found it difficult to assess. Patient lost her focus frequently, however she did did keep returning to the table to work on her activity and handout. Patient also requested to have this therapist look up "Where could I take a class in [facility]?" A few on-line classes were identified, however nothing that really seemed of interest to the patient and what she was searching for. Gianna Marques MA, MARKETING ACCOUNT EXECUTIVE #[id number] [facility], Art Therapist Addendum: 03/15/21 at 1615 by Gianna Marques SS Amended: Links added.
[2021-03-15 19:17] VITALS: BP 112/64
[2021-03-15] MEDS: traZODone 50mg tablet PO SCH (20:22)
[2021-03-15] MEDS: risperiDONE 0.5mg tablet PO SCH (20:22)
--- NOTE | 2021-03-15 23:30 | NUR ---
Nursing Progress Note: Jeanne Stoll Legal hold: T-Con Client on involuntary status for GD Report received from Girish MAIER with use of SBAR Why they are here: Patient was eating non-edible items, e.g. metal objects, confused, disorganized, and unable to formulate a visible plan for food, clothing and [facility]. Assessment Pt. received in her room sitting on the bed. Pt calm and states she is doing just fine. Denies MH symptoms. Excited to be leaving to [place] next week. She had some complaints of lower back pain. Requested shower, cooperative with medications and had snack before retiring to bed. Pt is adamant that she has Vicodin and a lidocaine patch ordered. S/I, H/I: Denies A/VH: Denies, appears to be responding to IS Sleep: ADL's: Independent Group attendance: Were meds taken: Yes Any med S/E: None observed or reported. Mental Status Exam Appearance Eye contact: Good Behavior: Cooperative, paranoid Speech: Clear minimal speech Mood: Good Affect: Flat Thought process: Disorganized, anxious Thought Content: Internally occupied. Cognition: A&O X3 to person place and time Insight: Poor Judgment: Poor Interventions PRN's used: Therapeutic interventions: 1:1 assessment, therapeutic communication, active listening, medication administration/education/monitoring, encouragement to perform personal hygiene, provided a safe and therapeutic environment, distraction, redirection, positive reinforcement, and Q15 minute safety checks. Restraints/seclusion/emergency medication: N/A Justification of Continued Inpatient Treatment: SARITA Traylor, Pt. continues to require a safe and supportive environment. She continues to fail outpatient and is on T-Con for conservatorship.
[2021-03-16] MEDS: traMADol 50MG tablet PO SCH ×4 (02:20→19:34)
[2021-03-16] MEDS: benztropine 1mg tablet PO SCH ×2 (08:27→19:38)
[2021-03-16] MEDS: hydrOXYzine 25 MG tablet PO PRN ×2 (10:22→16:52)
[2021-03-16] MEDS ORDERED: OLANZAPINE 5 MG TABLET PO ONE (14:45)
--- NOTE | 2021-03-16 17:36 | NUR ---
Nursing Progress Note: Jeanne Legal hold: T-Con Client on involuntary status for GD Report received from KEMI Andrea with use of SBAR Why they are here: Patient was eating non-edible items, e.g. metal objects, confused, disorganized, and unable to formulate a visible plan for food, clothing and fci. Assessment What happened on this shift: Patient received walking around the unit at change of shift. Patient presents as calm and cooperative, yet is visibly responding to internal stimuli. She joined in the community room for breakfast, noted interacting appropriately with peers. Patient is observed to be restless during breakfast, noted sitting up and walking away from her meal several times then returning back to her seat. She was compliant with 1:1 assessment and routine medication. Patient approached this sign writer hand endorsing pretty bad anxiety and was given PRN Atarax at approximately 1022. Patient denies SI/ HI, AH or VH. She is observed walking around the unit quietly talking to herself throughout the day, noted to be responding to internal stimuli. Patient endorsed feelings of anxiety to this sign writer hand later in the day. One time dose of Zyprexa 5mg ordered per SARITA Johnson. Patient refused to take prescribed Zyprexa, endorsing that she doesnt need any heart pills. Patient educated on purpose and importance of Zyprexa, explaining that it is not a heart pill and will benefit her to reduce internal stimuli. She was reluctant to receive medication but was eventually encouraged to do so. She was active on the unit the majority of the day, noted walking around making phone calls and having conversation with peers. She joined in the community room for all meal/snack times today. S/I, H/I: Denies A/VH: Denies, appears to be responding to IS Sleep: Slept 7.5 hours last night per NOC shift, no naps noted today ADL's: Independent Group attendance: Were meds taken: Yes Any med S/E: None observed or reported. Mental Status Exam Appearance Eye contact: Good Behavior: Cooperative, paranoid, anxious at times Speech: Clear minimal speech Mood: Anxious, internally preoccupied Affect: Flat Thought process: Disorganized, Anxious Thought Content: Internally occupied. Having pretty bad anxiety. Cognition: A&O X3 to person place and time Insight: Poor Judgment: Poor Interventions PRN's used: One time dose of Zyprexa 5mg PO Therapeutic interventions: 1:1 assessment, therapeutic communication, active listening, medication administration/education/monitoring, encouragement to perform personal hygiene, provided a safe and therapeutic environment, distraction, redirection, positive reinforcement, and Q15 minute safety checks. Restraints/seclusion/emergency medication: N/A Justification of Continued Inpatient Treatment: Manuel Delgado PA, Pt. continues to require a safe and supportive environment. She continues to fail outpatient and is on T-Con for conservatorship.
[2021-03-16] MEDS: risperiDONE 0.5mg tablet PO SCH (19:35)
[2021-03-16] MEDS: traZODone 50mg tablet PO SCH (19:38)
[2021-03-16 20:33] VITALS: BP 115/76
[2021-03-17] MEDS: hydrOXYzine 25 MG tablet PO PRN ×2 (01:23→09:26)
[2021-03-17] MEDS: traMADol 50MG tablet PO SCH ×4 (01:28→20:34)
--- NOTE | 2021-03-17 01:54 | NUR ---
Nursing Progress Note: Jeanne Legal hold: T-Con Client on involuntary status for GD Report received from KEMI Stout with use of SBAR Why they are here: Patient was eating non-edible items, e.g. metal objects, confused, disorganized, and unable to formulate a visible plan for food, clothing and residential. Assessment What happened on this shift: Patient pacing the grajeda at beginning of shift and seems to be responding to internal stimuli. Patient is cooperative and took her night medications without any issues. At 1:30AM patient woke up from sleep and requested her scheduled tramadol and her PRN atarax, both was given to patient. S/I, H/I: Denies A/VH: Denies, appears to be responding to IS Sleep: will tally at end of shift ADL's: Independent Group attendance: Were meds taken: Yes Any med S/E: None observed or reported. Mental Status Exam Appearance Eye contact: Good Behavior: Cooperative, paranoid, anxious at times Speech: Clear minimal speech Mood: Anxious, internally preoccupied Affect: Flat Thought process: Disorganized, Anxious Thought Content: Internally occupied. Having pretty bad anxiety. Cognition: A&O X3 to person place and time Insight: Poor Judgment: Poor Interventions PRN's used: one time dose of Atarax 100mg PO Therapeutic interventions: 1:1 assessment, therapeutic communication, active listening, medication administration/education/monitoring, encouragement to perform personal hygiene, provided a safe and therapeutic environment, distraction, redirection, positive reinforcement, and Q15 minute safety checks. Restraints/seclusion/emergency medication: N/A Justification of Continued Inpatient Treatment: SARITA Traylor, Pt. continues to require a safe and supportive environment. She continues to fail outpatient and is on T-Con for conservatorsh
[2021-03-17] MEDS: benztropine 1mg tablet PO SCH ×2 (07:09→20:34)
[2021-03-17] MEDS: LIDOcaine 5% patch TP SCH (07:09)
[2021-03-17] MEDS: risperiDONE 0.5mg tablet PO SCH ×2 (07:10→20:35)
[2021-03-17 07:17] VITALS: BP 117/69
[2021-03-17] MEDS: HYDROcodone/acetaminophen 5mg/325mg tablet PO PRN (16:57)
--- NOTE | 2021-03-17 17:51 | NUR ---
Nursing Progress Note: Legal hold: T-Con Client on involuntary status for GD Report received from KEMI Andrea with use of SBAR. Why they are here: Patient was eating non-edible items, e.g. metal objects, confused, disorganized, and unable to formulate a visible plan for food, clothing and jail. Assessment What happened on this shift: Patient is resting quietly in bed at the start of the shift. Cooperative with 1:1 assessment and medications. Patient verbalizes relief when she receives her Lidoderm patch. Complains of chronic back pain. States the Ultram is helpful but not entirely effective. Answers questions appropriately but is guarded and minimizes her mental health symptoms. Denies AH but appears to be responding to internal stimuli. Noted frequently talking to herself. Also appears to be physically interacting which things that are not there. Reaches out to touch the air and looks as if she tries to pick things up when nothing is there. Patient stores small items in the front of her bra and appears paranoid at times AEB looking around and over her shoulder. Complains that routine Ultram is not adequate for pain relief. Provider aware who gives new order for Mineral PRN. Mineral given and appears effective at this time. S/I, H/I: Denies A/VH: Denies, but appears to be responding to internal stimuli Sleep: None noted this shift ADL's: Independent Group attendance: NA Were meds taken: Yes Any med S/E: None observed or reported Mental Status Exam Appearance Eye contact: Good Behavior: Cooperative, paranoid, restless Speech: Clear, minimal, normal rate/ volume Mood: Good. Affect: Constricted Thought process: Disorganized, Paranoid Thought Content: Meeting needs. Internally occupied. Cognition: A&O X3 to person place and time Insight: Poor Judgment: Poor Interventions PRN's used: Atarax, Mineral Therapeutic interventions: 1:1 assessment, therapeutic communication, active listening, medication administration/education/monitoring, encouragement to perform personal hygiene, provided a safe and therapeutic environment, distraction, redirection, positive reinforcement, and Q15 minute safety checks. Restraints/seclusion/emergency medication: N/A Justification of Continued Inpatient Treatment: Manuel Delgado PA, Pt. continues to require a safe and supportive environment. She continues to fail outpatient and is on T-Con for conservatorship.
[2021-03-17 20:17] VITALS: BP 109/74
--- NOTE | 2021-03-17 20:30 | NUR ---
She walked up holding the Lidoderm patch stating it fell off. I verified with pharmacy if ok to reapply the patch. Pharmacy ok'd. New Lidoderm patch applied and secured in place with transpore tape
[2021-03-17] MEDS ORDERED: LIDOcaine 5% patch TP ONE (20:31)
[2021-03-17] MEDS: traZODone 50mg tablet PO SCH (20:34)
[2021-03-18] MEDS: HYDROcodone/acetaminophen 5mg/325mg tablet PO PRN ×3 (01:22→16:43)
--- NOTE | 2021-03-18 01:25 | NUR ---
She came to the [facility] station requesting Vicodin for back pain. I reviewed the time with her that she will be due for her regularly scheduled Ultram in 30 minutes. I gave her the option of having the [place] now or waiting the 30 minutes for the Ultram. I also reviewed with her that if she took [place] now, she would not receive the Ultram at 0200 due to the short time interval and will get the Ultram at the next scheduled time 0800. She opted to get the [place] now and will have her next regularly scheduled Ultram at 0800
[2021-03-18] MEDS: traMADol 50MG tablet PO SCH ×4 (02:00→20:47)
--- NOTE | 2021-03-18 03:00 | NUR ---
Nursing Progress Note: Legal hold: T-Con Client on involuntary status for GD Report received from Steven RN with use of SBAR. Why they are here: Patient was eating non-edible items, e.g. metal objects, confused, disorganized, and unable to formulate a visible plan for food, clothing and assisted. Assessment What happened on this shift: At the start of the shift, pt was up and ambulating in the hallway. She returned to her room and was cooperative with 1:1 assessment and medications. She appeared somewhat agitated than when I previously worked with her, and stated she was a little upset because her pen was taken from her. Later in the shift she was noted with the pen in her hand writing on the wall, and appeared less agitated. She was cooperative with the redirection not to write on the wall. Early in the shift she approached me with the Lidoderm patch in her hand stating it feel off her back. I verified with the pharmacy if ok to apply another patch (which pharmacy ok'd). Another Lidoderm patch was applied to her right lower back and secured with transpore tape. She answers questions appropriately but is guarded and occasionally looks over her shoulders while speaking. She also scratches her skin and appears somewhat nervous when answering questions. She denies AH, however she was observed and heard more than once having conversations with herself. At 0115 she requested a "Vicodin". I reviewed with her that the routine Ultram will be due in 30 minutes or she could have a [place] now for pain. If she took the [place] now, then the 0200 would not be administered. I gave her the option for the [place] now and have the next scheduled dose of Ultram at 0800, or to wait 30 minutes for the routine Ultram dose. She opted for [place] at 0115. During the night she requested some ice (without water). She denied having any cravings to chew ice (pica), and reported that she was thirsty and wanted the ice S/I, H/I: Denies A/VH: Denies, but observed having conversations with herself Sleep: Sleeping at the time of this note ADL's: Independent Group attendance: N/A Were meds taken: Yes Any med S/E: None observed or reported Mental Status Exam Appearance: Female, ungroomed, wearing scrubs with the pants hanging down and her underwear showing. Eye contact: Good Behavior: Cooperative, paranoid, restless Speech: Clear, minimal, normal rate/ volume Mood: Good. Affect: Constricted, incongruent Thought process: Disorganized, Paranoid Thought Content: Back pain, want snacks and ice. Appears internally occupied AEB having conversations with herself Cognition: A&O X3 to person place and time Insight: Poor Judgment: Poor Interventions IMPORTANT TO KEEP WELL HYDRATED IN LIGHT OF SICKLE CELL DISEASE (she has been reporting more back pain lately which could be a precursor to a sickle cell crisis) PRN's used: Kimmy Therapeutic interventions: 1:1 assessment, therapeutic communication, active listening, medication administration/education/monitoring, pain management, snacks, encouraged hydration, encouragement to perform personal hygiene, provided a safe and therapeutic environment, distraction, redirection, positive reinforcement, and Q15 minute safety checks. Restraints/seclusion/emergency medication: N/A Justification of Continued Inpatient Treatment: SARITA Traylor, Pt. continues to require a safe and supportive environment. She continues to fail outpatient and is on T-Con for conservatorship.
[2021-03-18] MEDS: benztropine 1mg tablet PO SCH ×2 (07:33→20:48)
[2021-03-18] MEDS: risperiDONE 0.5mg tablet PO SCH ×2 (07:34→20:47)
[2021-03-18] MEDS: LIDOcaine 5% patch TP SCH (07:35)
[2021-03-18 08:12] VITALS: BP 104/66
--- NOTE | 2021-03-18 13:52 | NUR ---
Reassessment: Pt continues on Regular diet w/ double protein TID, eating 100% of meals greatly exceeding estimated nutritional needs. Current intake meets nearly 300% of est protein needs; there is no benefit from double protein TID at this time; has previously been discussed w/ RN. DARYN 03/16; bowel care available PRN. No nutrition intervention implemented at this time, will continue to monitor. Recs: 1. Continue Regular diet as tolerated 2. D/C double protein TIDWM 3. Bowel care PRN 4. Weekly wts Addendum: 03/18/21 at [address] Amended: Links added.
[2021-03-18] MEDS: hydrOXYzine 25 MG tablet PO PRN (14:20)
--- NOTE | 2021-03-18 17:27 | NUR ---
Nursing Progress Note: Jeanne Legal hold: T-Con Client on involuntary status for GD Report received from KEMI Christine with use of SBAR. Why they are here: Patient was eating non-edible items, e.g. metal objects, confused, disorganized, and unable to formulate a visible plan for food, clothing and half-way. Assessment What happened on this shift: Patient received awake and pacing in the grajeda. She returned to her room and was receptive to medications and 1:1 assessment completed. Pt. denies SI, HI, AH, VH, and minimizes MH needs. Pt. observed responding to IS in the presence of ticket writer. Pt. jimmy I was admitted because I missed rehab, her discharge plans are to go to [place] on Friday. She is guarded and suspicious during our interaction. Pt. ate her meals in the main dining room with [id number] and engages socially with others, she spent most of the shift OOB either pacing, watching movies with others. She approached water numerous times this shift to verbalize her needs. Pt. continues to suffer from delusions and possible hallucinations AEB attempting to bend over and grab things off the floor, write on brar with her finger and was found responding to IS throughout the shift. Pt. c/o pain and requested PRN Wilcox X2; effective. At 1430 pt. c/o being unable to rest I cant lay still, Im nervous PRN Atarax given. S/I, H/I: Denies A/VH: Denies, but appears to be responding to internal stimuli Sleep: None noted this shift ADL's: Independent Group attendance: Not offered Were meds taken: Yes Any med S/E: None observed or reported Mental Status Exam Appearance Eye contact: Good Behavior: Delusional, paranoid Speech: Clear Mood: Im okay. Affect: Constricted Thought process: Disorganized, suspicious Thought Content: Meeting needs. Internally occupied. Cognition: A&O X3 to person place and time Insight: Poor Judgment: Poor Interventions PRN's used: Wilcox, Atarax Therapeutic interventions: 1:1 assessment, therapeutic communication, active listening, medication administration/education/monitoring, encouragement to perform personal hygiene, provided a safe and therapeutic environment, distraction, redirection, positive reinforcement, and Q15 minute safety checks. Restraints/seclusion/emergency medication: N/A Justification of Continued Inpatient Treatment: Per SARITA Delgado, Pt. continues to require a safe and supportive environment. She continues to fail outpatient and is on T-Con for conservatorship.
[2021-03-18 19:34] VITALS: BP 113/75
[2021-03-18] MEDS: traZODone 50mg tablet PO SCH (20:48)
--- NOTE | 2021-03-18 21:00 | NUR ---
TRIED CHEEKING THE TRAZODONE Tonight she was observed trying to hide her meds (trazodone). When I gave her the nighttime meds she asked, "how many trazodones did I get?" I told her she is now on 2 pills, not 1. She then took 1 trazodone out the cup and put the other pills in her mouth and swallowed them. She then put the 1 trazodone in her mouth and put it in her bottom lip. I let her know I saw her put the pill in her lip, afterwhich she swallowed it. She stated she tried hiding it, "I don't know, I guess because I want to see what 1 pill does to me." I reinforced to her not to attempt to hide her pills
[2021-03-19] MEDS: traMADol 50MG tablet PO SCH ×3 (02:02→13:41)
--- NOTE | 2021-03-19 03:00 | NUR ---
Nursing Progress Note: Legal hold: T-Con Client on involuntary status for GD Report received from Steven RN with use of SBAR. Why they are here: Patient was eating non-edible items, e.g. metal objects, confused, disorganized, and unable to formulate a visible plan for food, clothing and care home. Assessment What happened on this shift: At the start of the shift, pt was up and ambulating in the hallway. She appeared calm although she was heard multiple times having conversation with herself. She requested soap to take a shower. At the time of med-pass she took one of the trazodone pills and tried to hide it in her lower lip (see 2100 note). She stated she tried to hide the pill, "because I want to see how one makes me feel." She answers questions appropriately but is guarded and occasionally looks over her shoulders while speaking. She also scratches her skin and appears somewhat nervous when answering questions. On multiple occasions she was heard having conversations with herself (loudly at times). She reports she is talking to a keerthi she knows about a letter she left for him prior to her being admitted here. She denies seeing or hearing the "keerthi" but says she is telling him about the letter she wrote not to harm her. She did not request any break-through pain medication this shift S/I, H/I: Denies A/VH: Denies, but observed on multiple occasions having conversations with herself and seeming to respond to internal stimuli. She also is noted to step on things on the floor that are not there Sleep: Sleeping at the time of this note ADL's: Independent Group attendance: N/A Were meds taken: Yes. However she tried to hide one Trazodone tablet in her lower lip Any med S/E: None observed or reported Mental Status Exam Appearance: Female, ungroomed, wearing scrubs with the pants hanging down and her underwear showing. She took a shower tonight Eye contact: Fair Behavior: Cooperative, paranoid, restless Speech: Clear, but sometimes she mumbles inaudibly. She repeats the words more clearly when prompted Mood: Good. Affect: Constricted, incongruent Thought process: Disorganized, Paranoid Thought Content: Appears internally occupied AEB having conversations with herself. Talking to "a keerthi" about a letter she left him telling him not to harm her. Cognition: A&O X3 to person place and time Insight: Poor Judgment: Poor Interventions IMPORTANT TO KEEP WELL HYDRATED IN LIGHT OF SICKLE CELL DISEASE PRN's used: Kimmy (none on this shift) Therapeutic interventions: 1:1 assessment, therapeutic communication, active listening, medication administration/education/monitoring, pain management, snacks, encouraged hydration, encouragement to perform personal hygiene, provided a safe and therapeutic environment, distraction, redirection, positive reinforcement, and Q15 minute safety checks. Mouth checks after taking medicines Restraints/seclusion/emergency medication: N/A Justification of Continued Inpatient Treatment: SARITA Traylor, Pt. continues to require a safe and supportive environment. She continues to fail outpatient and is on T-Con for conservatorship.
[2021-03-19] MEDS: benztropine 1mg tablet PO SCH (07:00)
[2021-03-19] MEDS: risperiDONE 0.5mg tablet PO SCH (07:00)
[2021-03-19] MEDS: LIDOcaine 5% patch TP SCH (07:01)
[2021-03-19 07:52] VITALS: BP 96/67
--- NOTE | 2021-03-19 09:02 | NUR ---
DISCHARGE TODAY Jeanne has been accepted at [facility] and they can admit her today pending negative Covid results. PRESTON Allen
--- NOTE | 2021-03-19 09:11 | NUR ---
Completed and faxed Status report to [facility] at their request. PRESTON Allen
--- NOTE | 2021-03-19 09:54 | NUR ---
PICK-UP 2 PM TODAY TO TRANSFER TO [facility]. PRESTON Allen
[2021-03-19] MEDS: HYDROcodone/acetaminophen 5mg/325mg tablet PO PRN (10:19)
[2021-03-19] MEDS ORDERED: LIDO700A47 TP (11:46)
[2021-03-19] MEDS ORDERED: BENZ1TAB90 PO (11:46)
[2021-03-19] MEDS ORDERED: TRAZ-256 PO (11:46)
[2021-03-19] MEDS ORDERED: RISP0.5T65 PO (11:46)
[2021-03-19] MEDS ORDERED: HYDR-3964 PO (11:46)
[2021-03-19] MEDS ORDERED: NICO-907 BC (11:46)
[2021-03-19] MEDS ORDERED: TRAM50TA2 PO (11:46)
[2021-03-19] MEDS ORDERED: RISP3TAB63 PO (11:46)
[2021-03-19] MEDS ORDERED: HYDR-3686 PO (11:46)
--- NOTE | 2021-03-19 14:15 | NUR ---
Discharge Note: Reviewed plan and all paperwork with pt. all forms signed and copies placed in chart. MRSA swab and COVID 19 test completed. Pt. reviewed all belongings and left with all her items. Pt. ambulated off unit at 1405 and was picked up by [facility] transport.
== END 2021-03-19 14:10 | disposition home or self-care (01) | DRG 885 ==
LOC: ER 15:26 → ED HOLD 02-20 09:08 → ADULT MH 02-20 10:13
PROVIDERS: ADMIT Psychiatry & Neurology Psychiatry; ATTEND Psychiatry & Neurology Psychiatry
DX: F20.9 Schizophrenia, unspecified (principal); K62.5 Hemorrhage of anus and rectum; Z20.822 Contact with and (suspected) exposure to COVID-19; F15.10 Other stimulant abuse, uncomplicated; F32.A Depression, unspecified; G89.29 Other chronic pain; K21.9 Gastro-esophageal reflux disease without esophagitis; D57.1 Sickle-cell disease without crisis; N93.9 Abnormal uterine and vaginal bleeding, unspecified; D50.9 Iron deficiency anemia, unspecified; M25.551 Pain in right hip; M54.9 Dorsalgia, unspecified; I10 Essential (primary) hypertension; Z59.00 Homelessness unspecified; Z23 Encounter for immunization; Z65.3 Problems related to other legal circumstances; Z88.0 Allergy status to penicillin; Z88.5 Allergy status to narcotic agent; Z91.010 Allergy to peanuts; Z91.14 Patient's other noncompliance with medication regimen; Z56.0 Unemployment, unspecified; Z79.899 Other long term (current) drug therapy
CPT/HCPCS: 36415; 71045; 73502; 73552; 73590; 74018; 80053; 80305; 80320; 80329; 81001; 81025; 82948; 84443; 85008; 85025; 85045; 87081; 87635; 96372; 99285; C9803; J1200; J1630; J1885; J2060; Q0177

== ENCOUNTER 2024-09-25 20:32 | Emergency (ER) | payer MEDICARE, MEDICAID ==
[~2024-09-25] VITALS: Ht 157.5 cm; Wt 93.3 kg
[~2024-09-25 20:32] MED LIST changes: -BENZ1TAB90 PO; +COG1T PO; +HYDR-3964 PO; -HYDR500C2 PO; +LIDO700A47 TP; +RISP0.5T80 PO; -RISP3TAB11 PO; +RISP3TAB77 PO; +TRAM50TA2 PO; -TRAZ-251 PO; +TRAZ-256 PO
[2024-09-25 20:45] VITALS: BP 142/89; PULSE 137; RESP 19; TEMP 98.9; O2SAT 99
--- NOTE | 2024-09-25 21:06 | Physician Documentation ---
History of Present Illness ~ Chief Complaint: Ear Pain Stated Complaint: FEVER, SORE THROAT Time Seen by MD: 21:03 Primary Medical Doctor: [facility] HPI 44-year-old female presents with complaint of bilateral ear pain. Also states that she has used meth amphetamine today. Has not chest pain or shortness for breath denies any recent history of having a cold which were attributed to her ear pain. Medication Reconciliation Allergies: Coded Allergies: Penicillins (Verified Allergy, Severe, HIVES, RASH, 01/21/21) codeine (Verified Allergy, Intermediate, hives and rashes, 01/21/21) peanut (Verified Allergy, Intermediate, 02/20/21) Scheduled Benztropine Mesylate (Benztropine Mesylate), 1 MG PO Q12H Risperidone (Risperidone), 1 MG PO DAILY Risperidone (Risperidone), 1 TAB PO HS Trazodone HCl (Trazodone HCl), 1 TAB PO HS Scheduled PRN Hydrocodone Bit/Acetaminophen (Hydrocodon-Acetaminophen 5-325), 1 TAB PO DAILY PRN for FOR SEVERE PAIN ONLY Hydroxyzine Hcl* (Atarax*), 25 MG PO TID PRN for anxiety Lidocaine (Lidocaine), 1 PATCH TP DAILY PRN for pain Nicotine Polacrilex (Nicotine Lozenge), 2 MG BC TID PRN for NICOTINE CRAVING Tramadol Hcl (Tramadol Hcl), 50 MG PO TID PRN for FOR MODERATE PAIN ONLY Past Medical History Past Medical History: GERD, Anemia, Sickle Cell Disease, Chronic Back Pain, Depression, Psychosis, Schizophrenia Past Surgical History: noncontributory Patient History: Patient reports no known family medical history. Alcohol Use: Heavy Drug Use: methamphetamine Lives with: Family, Other Lives In: Homeless Occupation: disabled Review of Systems All Other Systems at this time: Reviewed and Negative ROS As stated above in the HPI, otherwise all systems are reviewed and negative. Physical Exam Vital Signs: Temperature: 98.9, Source: Temporal, Heart Rate: 137, Respiratory Rate: 19, BP: 142/89, Pulse Oximetry: 99, Weight: 93.300 Physical Exam General: Alert, no apparent distress. HEENT: PERRL, EOMI, no injection, moist mucous membranes. cerumen build -up not obstructing tympanic membrane distress. Chest: No accessory muscle use. Cardiovascular: Tachycardic and rhythm, no murmurs. Psychiatric: Normal mood and affect. Skin: Normal color, warm and dry. No edema, no ecchymosis. 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 09/25/24 21:54 OMKAR THOMAS NP Sep 25, 2024 21:06
== END 2024-09-25 21:25 | disposition home or self-care (01) ==
LOC: ER 20:33
DX: F15.150 Other stimulant abuse with stimulant-induced psychotic disorder with delusions (principal); H92.03 Otalgia, bilateral; F20.9 Schizophrenia, unspecified; Z88.0 Allergy status to penicillin; Z88.5 Allergy status to narcotic agent; Z88.8 Allergy status to other drugs, medicaments and biological substances
CPT/HCPCS: 99282